=== PATIENT | female | born 1930 | race Caucasian/White ===

== ENCOUNTER 2016-07-16 14:52 | Emergency (ER) | payer OTHER, MEDICARE ==
[~2016-07-16 14:52] MED LIST: /HCTZ25TA PO; /PANT40TA PO; /WARF25TA PO; ALBU17IN2 INH; ASPI1TAB PO; ASPI325T PO; ASPI81TA85 PO; BISO10TA3 PO; BISO10TA42 PO; BISO10TA6 PO; CALC600T7 PO; CALCI50TA PO; CALCTAB75 PO; EPIN0.3I6 INJ; EPIP0.3I10 INJ; FERR15DR2 PO; FLON1SPR; FLUT50SP; MAGN200T3 PO; MAGN250T11 PO; MULTTAB4 PO; OCUTTAB PO; OPTI0.5D5 OU; OSTETAB PO; PERC7.5T12 PO; PROA1AER INH; PROAAER INH; PROL60SO SC; RAMI10CA PO; SENO8.6T9 PO; SPIR1CAP INH; TYLE325T5 PO; VITA-121 PO; VITMTA PO; [UNRECOGNIZED DRUG - OTHER] OR; [UNRECOGNIZED DRUG - OTHER] OR; prolia INJ; spiriva INH
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
--- NOTE | 2016-07-16 16:10 | REP ---
THORACIC SPINE, THREE VIEWS: HISTORY: Trauma. There is no acute fracture or subluxation. There is an old compression fracture of the T 9 vertebral body with minimal height loss. There is loss of height of several mid and lower thoracic intervertebral discs consistent with disc degeneration. Osteophytes are present in the mid and lower thoracic spine. There is scoliosis of the mid and lower thoracic spine convex to the left. The bony structure is osteopenic. IMPRESSION: Degenerative change as described above. Signed by Kehinde Wills MD 07/16/2016 04:11 P
[2016-07-16] MEDS ORDERED: ACETAMINOPHEN 325 MG TAB As Ordered ONE (16:53)
--- NOTE | 2016-07-16 17:00 | EDDOCDS ---
Physician Documentation [facility] Name: Ana Rosa Brooks Age: 85 yrs Sex: Female : 1930 Arrival Date: 07/16/2016 Time: 14:52 Bed 12 Private MD: Disposition: 07/16/16 16:38 Discharged to Home/Self Care. Impression: Contusion of right front wall of thorax, Contusion of right back wall of thorax. - Condition is Stable. - Discharge Instructions: Chest Wall Pain, Chest Contusion. - Medication Reconciliation, Local Pharmacy Hours form. - Follow up: Private Physician; When: 2 - 3 days. - Problem is new. - Symptoms are unchanged. Historical: - Allergies: Wasps; - Home Meds: 1. aspirin 81 mg Oral tab 1 tab once daily 2. Calcium 600 + D3 600/400 units 2X/day daily 3. magnesium oxide 250 mg Oral tab daily 4. multivitamin Oral tab daily 5. Osteo Bi-Flex Triple Strength oral 1 tab daily 6. Proair HFA 108 mcg/act 2 puffs four times per day as needed as needed 7. Prolia 60 mg/ml 2X/year 8. ramipril 10 mg Oral cap 1 cap once daily 9. Spiriva with HandiHaler 18 mcg Inhl CpDv once daily 10. Vitamin D3 1,000 unit oral tab daily 11. Refresh optive 0.5-0.9% 1 drop both eyes daily 12. bisoprolol-hydrochlorothiazide 10-6.25 mg oral tab 2 tab once daily 13. epi-pen 0.3mg/0.3ml 1 unit as directed 14. Fluitcasone Propionate susp 50 mcg/act 2 sprays each nostril daily daily - PMHx: Asthma; Hypertension; Palpitations; Thyroid problem; paroxysmal Vtach; - PSHx: Appendectomy; Hysterectomy; Thyroid Surgery; kidney stone removal; ureter repair; Hip Arthroplasty, Left; - Immunization history: Last tetanus immunization: - up to date. - Social history: Smoking status: Patient states was never smoker of tobacco. No barriers to communication noted, The patient speaks fluent Niuean, Speaks appropriately for age. - Family history: Not pertinent. - Last oral intake was: noon. - : The pt / caregiver states he / she is not on anticoagulants. Home medication list is obtained from the patient. Vital Signs: 07/16 15:06 BP 147 / 75; Pulse 80; Resp 16; Pulse Ox 92% on R/A; kr3 15:09 Temp 98.6(O); Weight 47.63 kg / 105.01 lbs (R); Height 5 ft. 0 in. (152.40 cm) (R); ct3 15:10 Weight 45.81 kg / 100.99 lbs (R); Height 5 ft. (152.40 cm) (R); kr3 15:15 BP 180 / 75 (auto/); kr3 15:48 BP 140 / 83 (auto/); kr3 16:18 BP 162 / 80 (auto/); kr3 16:33 BP 186 / 77 (auto/); kr3 15:10 Body Mass Index 19.73 (45.81 kg, 152.40 cm) kr3 Trauma Score (Adult): 15:03 Eye Response: spontaneous(1); Verbal Response: oriented(1); Motor Response: obeys kr3 commands(2); Systolic BP: > 89 mm Hg(4); Respiratory Rate: 10 to 29 per min(4); [place] Score: 15; Trauma Score: 12 MDM: 15:00 ECG WITH READING ER PHYS+CARDIAG ordered. EDMS 15:12 Chest, 2 View (pa\E\lat) Ordered. EDMS 15:12 Spine, Thoracic 3 Views Ordered. EDMS 15:53 Financial registration complete. ks16 15:55 [facility] Payment Agreement was scanned into [employer] and attached to record. ks16 15:57 Misc. Nursing Order ordered. sd1 16:58 Acetaminophen Tablet 650 mg PO once ordered. kr3 Administered Medications: 16:58 Drug: Acetaminophen 650 mg [acetaminophen 325 mg tablet (2 tabs)] Route: PO; kr3 16:58 Follow up: Response: Pt left department before re-evaluation is appropriate kr3 Signatures: Dispatcher [employer] EDMS Nereyda Zuniga MD MD sd1 Jessica Cook,RN RN kr3 Angela Chappell, Reg Reg ks16 The chart was reviewed and I authenticate all verbal orders and agree with the evaluation and treatment provided.Attachments: 15:55 [facility] Payment Agreement ks16 MTDD
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
--- NOTE | 2016-07-17 07:26 | ECGEPIP ---
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
--- NOTE | 2016-07-18 18:01 | EDDOCDS ---
Physician Documentation [facility] Name: Ana Rosa Brooks Age: 85 yrs Sex: Female : 1930 Arrival Date: 07/16/2016 Time: 14:52 Bed 12 Private MD: Disposition: 07/16/16 16:38 Discharged to Home/Self Care. Impression: Contusion of right front wall of thorax, Contusion of right back wall of thorax. - Condition is Stable. - Discharge Instructions: Chest Wall Pain, Chest Contusion. - Medication Reconciliation, Local Pharmacy Hours form. - Follow up: Private Physician; When: 2 - 3 days. - Problem is new. - Symptoms are unchanged. Historical: - Allergies: Wasps; - Home Meds: 1. aspirin 81 mg Oral tab 1 tab once daily 2. Calcium 600 + D3 600/400 units 2X/day daily 3. magnesium oxide 250 mg Oral tab daily 4. multivitamin Oral tab daily 5. Osteo Bi-Flex Triple Strength oral 1 tab daily 6. Proair HFA 108 mcg/act 2 puffs four times per day as needed as needed 7. Prolia 60 mg/ml 2X/year 8. ramipril 10 mg Oral cap 1 cap once daily 9. Spiriva with HandiHaler 18 mcg Inhl CpDv once daily 10. Vitamin D3 1,000 unit oral tab daily 11. Refresh optive 0.5-0.9% 1 drop both eyes daily 12. bisoprolol-hydrochlorothiazide 10-6.25 mg oral tab 2 tab once daily 13. epi-pen 0.3mg/0.3ml 1 unit as directed 14. Fluitcasone Propionate susp 50 mcg/act 2 sprays each nostril daily daily - PMHx: Asthma; Hypertension; Palpitations; Thyroid problem; paroxysmal Vtach; - PSHx: Appendectomy; Hysterectomy; Thyroid Surgery; kidney stone removal; ureter repair; Hip Arthroplasty, Left; - Immunization history: Last tetanus immunization: - up to date. - Social history: Smoking status: Patient states was never smoker of tobacco. No barriers to communication noted, The patient speaks fluent Belarusian, Speaks appropriately for age. - Family history: Not pertinent. - Last oral intake was: noon. - : The pt / caregiver states he / she is not on anticoagulants. Home medication list is obtained from the patient. Vital Signs: 07/16 15:06 BP 147 / 75; Pulse 80; Resp 16; Pulse Ox 92% on R/A; kr3 15:09 Temp 98.6(O); Weight 47.63 kg / 105.01 lbs (R); Height 5 ft. 0 in. (152.40 cm) (R); ct3 15:10 Weight 45.81 kg / 100.99 lbs (R); Height 5 ft. (152.40 cm) (R); kr3 15:15 BP 180 / 75 (auto/); kr3 15:48 BP 140 / 83 (auto/); kr3 16:18 BP 162 / 80 (auto/); kr3 16:33 BP 186 / 77 (auto/); kr3 15:10 Body Mass Index 19.73 (45.81 kg, 152.40 cm) kr3 Trauma Score (Adult): 15:03 Eye Response: spontaneous(1); Verbal Response: oriented(1); Motor Response: obeys kr3 commands(2); Systolic BP: > 89 mm Hg(4); Respiratory Rate: 10 to 29 per min(4); Pablo Score: 15; Trauma Score: 12 MDM: 15:00 ECG WITH READING ER PHYS+CARDIAG ordered. EDMS 15:12 Chest, 2 View (pa\E\lat) Ordered. EDMS 15:12 Spine, Thoracic 3 Views Ordered. EDMS 15:53 Financial registration complete. ks16 15:55 [facility] Payment Agreement was scanned into [employer] and attached to record. ks16 15:57 [facility] [place] Order ordered. sd1 16:58 Acetaminophen Tablet 650 mg PO once ordered. kr3 07/17 10:54 T-Sheet-- Draft Copy was scanned into [employer] and attached to record. gb 10:54 ECG/EKG was scanned into [employer] and attached to record. gb Administered Medications: 07/16 16:58 Drug: Acetaminophen 650 mg [acetaminophen 325 mg tablet (2 tabs)] Route: PO; kr3 16:58 Follow up: Response: Pt left department before re-evaluation is appropriate kr3 Signatures: Dispatcher [employer] EDMS Nereyda Zuniga MD MD sd1 Mirella Hernandez, Reg Reg gb Jessica Cook RN RN kr3 Angela Chappell, Reg Reg ks16 The chart was reviewed and I authenticate all verbal orders and agree with the evaluation and treatment provided.Attachments: 15:55 [facility] [place] Payment Agreement ks16 07/17 10:54 T-Sheet-- Draft Copy gb 10:54 ECG/EKG gb Chart Complete MTDD
--- NOTE | 2016-07-18 18:01 | EDDOCDS ---
Physician Documentation [facility] Name: Ana Rosa Brooks Age: 85 yrs Sex: Female : 1930 Arrival Date: 07/16/2016 Time: 14:52 Bed 12 Private MD: Disposition: 07/16/16 16:38 Discharged to Home/Self Care. Impression: Contusion of right front wall of thorax, Contusion of right back wall of thorax. - Condition is Stable. - Discharge Instructions: Chest Wall Pain, Chest Contusion. - Medication Reconciliation, Local Pharmacy Hours form. - Follow up: Private Physician; When: 2 - 3 days. - Problem is new. - Symptoms are unchanged. Historical: - Allergies: Wasps; - Home Meds: 1. aspirin 81 mg Oral tab 1 tab once daily 2. Calcium 600 + D3 600/400 units 2X/day daily 3. magnesium oxide 250 mg Oral tab daily 4. multivitamin Oral tab daily 5. Osteo Bi-Flex Triple Strength oral 1 tab daily 6. Proair HFA 108 mcg/act 2 puffs four times per day as needed as needed 7. Prolia 60 mg/ml 2X/year 8. ramipril 10 mg Oral cap 1 cap once daily 9. Spiriva with HandiHaler 18 mcg Inhl CpDv once daily 10. Vitamin D3 1,000 unit oral tab daily 11. Refresh optive 0.5-0.9% 1 drop both eyes daily 12. bisoprolol-hydrochlorothiazide 10-6.25 mg oral tab 2 tab once daily 13. epi-pen 0.3mg/0.3ml 1 unit as directed 14. Fluitcasone Propionate susp 50 mcg/act 2 sprays each nostril daily daily - PMHx: Asthma; Hypertension; Palpitations; Thyroid problem; paroxysmal Vtach; - PSHx: Appendectomy; Hysterectomy; Thyroid Surgery; kidney stone removal; ureter repair; Hip Arthroplasty, Left; - Immunization history: Last tetanus immunization: - up to date. - Social history: Smoking status: Patient states was never smoker of tobacco. No barriers to communication noted, The patient speaks fluent Greek, Speaks appropriately for age. - Family history: Not pertinent. - Last oral intake was: noon. - : The pt / caregiver states he / she is not on anticoagulants. Home medication list is obtained from the patient. Vital Signs: 07/16 15:06 BP 147 / 75; Pulse 80; Resp 16; Pulse Ox 92% on R/A; kr3 15:09 Temp 98.6(O); Weight 47.63 kg / 105.01 lbs (R); Height 5 ft. 0 in. (152.40 cm) (R); ct3 15:10 Weight 45.81 kg / 100.99 lbs (R); Height 5 ft. (152.40 cm) (R); kr3 15:15 BP 180 / 75 (auto/); kr3 15:48 BP 140 / 83 (auto/); kr3 16:18 BP 162 / 80 (auto/); kr3 16:33 BP 186 / 77 (auto/); kr3 15:10 Body Mass Index 19.73 (45.81 kg, 152.40 cm) kr3 Trauma Score (Adult): 15:03 Eye Response: spontaneous(1); Verbal Response: oriented(1); Motor Response: obeys kr3 commands(2); Systolic BP: > 89 mm Hg(4); Respiratory Rate: 10 to 29 per min(4); [place] Score: 15; Trauma Score: 12 MDM: 15:00 ECG WITH READING ER PHYS+CARDIAG ordered. EDMS 15:12 Chest, 2 View (pa\E\lat) Ordered. EDMS 15:12 Spine, Thoracic 3 Views Ordered. EDMS 15:53 Financial registration complete. ks16 15:55 [facility] Payment Agreement was scanned into [employer] and attached to record. ks16 15:57 [facility] [place]. Nursing Order ordered. sd1 16:58 Acetaminophen Tablet 650 mg PO once ordered. kr3 07/17 10:54 T-Sheet-- Draft Copy was scanned into [employer] and attached to record. gb 10:54 ECG/EKG was scanned into [employer] and attached to record. gb Administered Medications: 07/16 16:58 Drug: Acetaminophen 650 mg [acetaminophen 325 mg tablet (2 tabs)] Route: PO; kr3 16:58 Follow up: Response: Pt left department before re-evaluation is appropriate kr3 Signatures: Dispatcher [employer] EDMS Nereyda Zuniga MD MD sd1 Mirella Hernandez, Reg Reg gb Jessica Cook RN RN kr3 Angela Chappell, Reg Reg ks16 The chart was reviewed and I authenticate all verbal orders and agree with the evaluation and treatment provided.Attachments: 15:55 [facility] [place] Payment Agreement ks16 07/17 10:54 T-Sheet-- Draft Copy gb 10:54 ECG/EKG gb Chart Complete MTDD
== END 2016-07-16 17:00 | disposition home or self-care (01) ==
LOC: M ED 14:52
DX: S20.219A Contusion of unspecified front wall of thorax, initial encounter (principal); V49.40XA Driver injured in collision with unspecified motor vehicles in traffic accident, initial encounter; Y92.410 Unspecified street and highway as the place of occurrence of the external cause; I10 Essential (primary) hypertension; J45.909 Unspecified asthma, uncomplicated; R00.2 Palpitations; E07.9 Disorder of thyroid, unspecified; I47.2 Ventricular tachycardia; Z79.899 Other long term (current) drug therapy; Z79.82 Long term (current) use of aspirin; Z91.030 Bee allergy status

== ENCOUNTER 2016-07-27 16:30 | Inpatient (IN) | payer MEDICARE, OTHER ==
[~2016-07-27] VITALS: Ht 152.4 cm; Wt 45.6 kg
[2016-07-27 17:34] LABS: BASO # 0.1 K/mm3 (0.0-0.2); BASO % 0.6 % (0.0-1.0); EOS # 0.5 K/mm3 (0.0-0.50); EOS % 5.4 % (0.0-3.0); LARGE UNSTAINED CELL # 0.4 K/mm3 (0.0-0.4); LARGE UNSTAINED CELL % 3.9 % (0.0-4.0); LYMPH # 1.7 K/mm3 (1.5-4.5); LYMPH % 16.4 % (24.0-44.0); MEAN CORPUSCULAR HEMOGLOBIN 31.2 pg (27.0-33.0); MEAN CORPUSCULAR HGB CONC 32.5 g/dl (32.0-36.5); MEAN CORPUSCULAR VOLUME 95.9 fl (80.0-96.0); MONO # 0.8 K/mm3 (0.0-0.8); MONO % 7.7 % (0.0-5.0); NEUTROPHILS # 6.7 K/mm3 (1.8-7.7); NEUTROPHILS % 66.1 % (36.0-66.0); PLATELET COUNT, AUTOMATED 411 k/mm3 (150-450); RED CELL DISTRIBUTION WIDTH 12.5 % (11.5-14.5); WHITE BLOOD COUNT 10.1 K/mm3 (4.0-10.0)
[2016-07-27 17:57] LABS: CALCIUM LEVEL 13.3 MG/DL (8.8-10.2); CREATININE FOR GFR 1.53 MG/DL (0.55-1.02); GLOMERULAR FILTRATION RATE 34.3 (>32); POTASSIUM SERUM 3.2 MEQ/L (3.5-5.1)
[2016-07-27] MEDS ORDERED: POTASSIUM CHLORIDE 10 MEQ SR TABLET As Ordered ONE (18:10)
--- NOTE | 2016-07-27 18:21 | REP ---
CHEST, ONE VIEW: HISTORY: Shortness of breath. COMPARISON: 07/16/2016 A minimal increase in interstitial markings is present in the lungs. The heart is upper limits of normal in size. The pulmonary vasculature is prominent. IMPRESSION: There is a minimal increase in interstitial markings in the lungs. This may represent interstitial edema or pneumonia. Signed by Kehinde Wills MD 07/27/2016 06:22 P
[2016-07-27] MEDS ORDERED: CALCTAB41 PO (19:41)
[2016-07-27] MEDS ORDERED: EPIP0.3I2 INJ (19:41)
[2016-07-27] MEDS ORDERED: MAGN250T11 PO (19:41)
[2016-07-27] MEDS ORDERED: VITMTA PO (19:41)
[2016-07-27] MEDS ORDERED: FURO40TA2 PO (19:44)
[2016-07-27] MEDS ORDERED: RAMI10CA PO (19:44)
[2016-07-27] MEDS ORDERED: PROL60SO SC (19:44)
[2016-07-27] MEDS ORDERED: REFR1DRO8 OU (19:44)
[2016-07-27] MEDS ORDERED: VITA-121 PO (19:44)
[2016-07-27] MEDS ORDERED: OSTETAB PO (19:44)
[2016-07-27] MEDS ORDERED: ASPI1TAB PO (19:46)
[2016-07-27] MEDS ORDERED: ALBUTEROL 90 MCG/ACT 8GM HFA INHALER INH PRN (20:15)
[2016-07-27 21:10] LABS: IONIZED CALCIUM 6.1 MG/DL (4.5-5.3)
[2016-07-27 21:42] LABS: T UPTAKE 41 % (30-39); THYROXINE (T4) 9.1 UG/DL (4.5-12.0); TOTAL PROTEIN 6.5 GM/DL (6.4-8.2)
[2016-07-27 21:50] VITALS: BP 170/98
[2016-07-27 21:58] LABS: OSMOLALITY URINE 344 MOSM/KG (500-800)
[2016-07-27] MEDS ORDERED: KCL 20MEQ IN 0.9 NS 1000 ML BAG As Ordered ONE (21:58)
[2016-07-27] MEDS ORDERED: HEPARIN SOD (PORCINE) 5000 UNITS/ML VIAL As Ordered ONE (22:04)
[2016-07-27] MEDS: KCL 20MEQ in NS 1000ML 1,000 ML IV SCH (22:07)
[2016-07-27] MEDS: HEPARIN SOD (PORCINE) 5000 UNITS/ML VIAL SC SCH (22:07)
[2016-07-27] MEDS ORDERED: MULTIVITAMINS/MINERALS THERAP 1 TAB As Ordered ONE (22:12)
[2016-07-27] MEDS: MULTIVITAMINS/MINERALS THERAP 1 TAB PO SCH (22:13)
[2016-07-27] MEDS: BISOPROLOL FUMARATE 10 MG TAB PO SCH (22:13)
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
[2016-07-27] MEDS: POLYVINYL ALCOHOL OPHTH SOLN 15 ML(LIQUITEARS) OU SCH (22:18)
[2016-07-28] VITALS: BP 141/76
[2016-07-28 04:00] VITALS: BP 135/80
[2016-07-28] MEDS ORDERED: HEPARIN SOD (PORCINE) 5000 UNITS/ML VIAL As Ordered ONE (05:50)
[2016-07-28] MEDS: HEPARIN SOD (PORCINE) 5000 UNITS/ML VIAL SC SCH ×3 (05:53→21:45)
[2016-07-28 07:24] LABS: IONIZED CALCIUM 5.9 MG/DL (4.5-5.3)
[2016-07-28 07:25] LABS: MEAN CORPUSCULAR HEMOGLOBIN 31.7 pg (27.0-33.0); MEAN CORPUSCULAR HGB CONC 33.1 g/dl (32.0-36.5); MEAN CORPUSCULAR VOLUME 95.7 fl (80.0-96.0); RED CELL DISTRIBUTION WIDTH 12.6 % (11.5-14.5); WHITE BLOOD COUNT 8.8 K/mm3 (4.0-10.0)
[2016-07-28 07:46] LABS: CALCIUM LEVEL 11.6 MG/DL (8.8-10.2); CREATININE FOR GFR 1.27 MG/DL (0.55-1.02); GLOMERULAR FILTRATION RATE 42.5 (>32); MAGNESIUM LEVEL 2.1 MG/DL (1.8-2.4); POTASSIUM SERUM 4.2 MEQ/L (3.5-5.1)
--- NOTE | 2016-07-28 07:59 | REP ---
Clinical: Hypercalcemia. Technique: Real-time bryant scale and color evaluation of the thyroid gland using linear high frequency transducer. Findings: The patient gives a history of prior right thyroidectomy. Residual right thyroid tissue measures 1.7 x 0.8 x 0.9 cm and includes 2.6 mm hypoechoic mid pole lesion with mural calcification and 2.8 mm lower pole cystic lesion with small amount of mural calcification. Left thyroid lobe measures 3.2 x 1.9 x 1.9 cm and includes 1.2 cm upper pole isoechoic nodule along with 5 mm mid pole nodule, 1.2 centimeter mid/lower pole and 6.2 mm lower pole cysts. Impression: 1. Residual right thyroid tissue with small hypoechoic lesions as noted above. 2. Left lobe demonstrating 1.2 cm isoechoic nodule and 1.2 cm anechoic cyst. Signed by Chuy Pate MD 07/28/2016 07:51 A
[2016-07-28 08:00] VITALS: BP 150/78
--- NOTE | 2016-07-28 08:36 | REP ---
CT study of the chest without contrast: History: Question malignancy. Comparison CT study is from March 12, 2016. Findings: The previously noted left lobe thyroid hypodense lesion is not seen. There are clips at the trachea. The patient appears to be status post right thyroid lobectomy. There is no evidence of hilar or mediastinal lymphadenopathy. No pleural or pericardial effusion is seen. No adrenal lesion is seen. There are two intrarenal calculi in the left upper kidney. Vascular calcification is noted in the aorta and its branches. On lung window settings, there are emphysematous changes in the upper lobes bilaterally. Mild bibasilar linear fibrosis is seen. No pulmonary mass lesion or significant nodule is appreciated. No bony destructive lesion is seen. There is a levoconvex curvature in the lower thoracic spine. Impression: Evidence of COPD. No evidence of lung mass, adenopathy or significant nodule. Signed by Golden Genao MD 07/28/2016 02:32 P
[2016-07-28] MEDS: FLUTICASONE PROP 0.05% NASAL SPRAY 16 GM (FLONASE) SCH (09:00)
[2016-07-28] MEDS ORDERED: KCL 20MEQ IN 0.9 NS 1000 ML BAG As Ordered ONE (09:01)
[2016-07-28] MEDS: SENOKOT S TAB PO SCH ×2 (09:02→21:45)
[2016-07-28] MEDS: ASPIRIN 81 MG ENTERIC TAB PO SCH (09:02)
[2016-07-28] MEDS: KCL 20MEQ in NS 1000ML 1,000 ML IV SCH (09:03)
[2016-07-28] MEDS: POLYVINYL ALCOHOL OPHTH SOLN 15 ML(LIQUITEARS) OU SCH ×2 (09:03→21:45)
[2016-07-28] MEDS: TIOTROPIUM INHALER/CAPSULE (SPIRIVA) INH SCH (11:22)
[2016-07-28 12:10] VITALS: BP 170/76
--- NOTE | 2016-07-28 12:18 | EDDOCDS ---
Physician Documentation [facility] Name: Ana Rosa Brooks Age: 85 yrs Sex: Female : 1930 Arrival Date: 07/27/2016 Time: 16:30 Bed Admit Hold Private MD: Ashley Sky Disposition: 07/27/16 19:19 Hospitalization ordered by Jaylin Connolly for Inpatient Admission. Preliminary diagnosis is Hypercalcemia. - Bed requested for PCU. - Status is Inpatient Admission. kcs - Condition is Stable. - Problem is new. - Symptoms are unchanged. Historical: - Allergies: Wasps; - Home Meds: 1. aspirin 81 mg Oral tab 1 tab once daily 2. bisoprolol-hydrochlorothiazide 10-6.25 mg oral tab 2 tab once daily 3. Calcium 600 + D3 600/400 units 2X/day daily 4. epi-pen 0.3mg/0.3ml 1 unit as directed 5. Fluitcasone Propionate susp 50 mcg/act 2 sprays each nostril daily daily 6. magnesium oxide 250 mg Oral tab daily 7. multivitamin Oral tab daily 8. Osteo Bi-Flex Triple Strength oral 1 tab daily 9. Proair HFA 108 mcg/act 2 puffs four times per day as needed as needed 10. ramipril 10 mg Oral cap 1 cap once daily 11. Prolia 60 mg/ml 2X/year 12. Refresh optive 0.5-0.9% 1 drop both eyes daily 13. Spiriva with HandiHaler 18 mcg Inhl CpDv once daily 14. Vitamin D3 1,000 unit oral tab daily - PMHx: Thyroid problem; paroxysmal Vtach; Hypertension; Asthma; Palpitations; - PSHx: Thyroid Surgery; ureter repair; Hysterectomy; Appendectomy; kidney stone removal; Hip Arthroplasty, Left; - Social history: No barriers to communication noted, The patient speaks fluent Brazilian, Speaks appropriately for age, Smoking status: Patient states former smoker of tobacco. - Family history: Not pertinent. - : The pt / caregiver states he / she is not on anticoagulants. Home medication list is obtained from the patient, [employer] import data. - Exposure Risk Screening:: None identified. Vital Signs: 07/27 16:35 BP 179 / 81; Pulse 79; Resp 18; Temp 97.1(O); Pulse Ox 99% on R/A; Weight 43.09 kg / 95 ct3 lbs (R); Height 5 ft. 0 in. (152.40 cm) (R); Pain 5/10; 17:24 BP 175 / 88 (auto/); mk4 17:25 Pulse 74 MON; Pulse Ox 93% ; mk4 17:39 BP 170 / 79 (auto/); mk4 17:39 Pulse 66 MON; Pulse Ox 91% ; mk4 17:54 BP 175 / 81 (auto/); mk4 17:54 Pulse 72 MON; Pulse Ox 90% ; mk4 18:09 BP 183 / 85 (auto/); mk4 18:09 Pulse 80 MON; Pulse Ox 91% ; mk4 18:24 BP 174 / 84 (auto/); mk4 18:24 Pulse 70 MON; Pulse Ox 91% ; mk4 18:39 BP 189 / 89 (auto/); mk4 18:39 Pulse 72 MON; Pulse Ox 92% ; mk4 18:54 BP 183 / 86 (auto/); mk4 18:54 Pulse 74 MON; Pulse Ox 90% ; mk4 19:39 BP 178 / 84 (auto/); mv5 19:39 Pulse 72 MON; Pulse Ox 90% ; mv5 19:54 BP 188 / 91 (auto/); mv5 19:54 Pulse 76 MON; Pulse Ox 91% ; mv5 20:39 BP 169 / 77 (auto/); mv5 20:39 Pulse 72 MON; Pulse Ox 89% ; mv5 20:54 BP 166 / 80 (auto/); mv5 20:54 Pulse 74 MON; Pulse Ox 89% ; mv5 21:09 BP 180 / 86 (auto/); mv5 21:09 Pulse 76 MON; Pulse Ox 90% ; mv5 16:35 Body Mass Index 18.55 (43.09 kg, 152.40 cm) ct3 MDM: 16:45 IV Saline Lock ordered. br1 16:45 CBC with Diff Ordered. EDMS 16:45 BMP Ordered. EDMS 17:11 [employer]/Pulse Ox/q 30 min VS ordered. br1 17:11 NS 0.9% 1000 ml IV at 150 mL/hr continuous ordered. br1 17:12 ECG WITH READING ER PHYS+CARDIAG ordered. EDMS 17:46 Chest, 1 View Ordered. EDMS 18:02 CBC with Diff Reviewed. br1 18:02 BMP Reviewed. br1 18:02 Potassium Chloride Extended Release Tablet 40 mEq PO once ordered. br1 18:06 BED REQUEST+ADM ordered. EDMS 18:37 Financial registration complete. [facility] 19:40 [facility] Payment Agreement was scanned into [employer] and attached to record. gjb 20:37 2 GRAM SODIUM DIET ordered. EDMS 20:37 THYROID PROFILE Ordered. EDMS 20:37 VITAMIN D, 25-HYDROXY Ordered. EDMS 20:37 PTH INTACT Ordered. EDMS 20:38 IONIZED CALCIUM Ordered. EDMS 20:38 URINALYSIS Ordered. EDMS 20:38 OSMOLALITY,URINE Ordered. EDMS 20:38 CALCIUM,RANDOM URINE Ordered. EDMS 20:38 SODIUM,RANDOM URINE Ordered. EDMS 20:38 POTASSIUM,RANDOM URINE Ordered. EDMS 20:38 SERUM PROTEIN ELECTROPHORESIS Ordered. EDMS 20:38 URINE PROTEIN ELECTROPHORESIS Ordered. EDMS 20:38 TOTAL PROTEIN,RANDOM URINE Ordered. EDMS 20:38 CREATININE,RANDOM URINE Ordered. EDMS 20:38 COMPLETE BLOOD COUNT Ordered. EDMS 20:38 BASIC METABOLIC PROFILE Ordered. EDMS 20:39 IONIZED CALCIUM Ordered. EDMS 20:40 PHYSICAL THERAPY EVAL ONLY ordered. EDMS 20:40 Thyroid, ST head+neck US Ordered. EDMS 21:15 Admission / Observation Status ordered. EDMS 22:16 MAGNESIUM LEVEL Ordered. EDMS 02/07 06:47 CT Chest without contrast Ordered. EDMS 06:47 CHLORIDE,RANDOM URINE Ordered. EDMS 07:07 PTH RELATED PEPTIDE Ordered. EDMS 07:07 VIT D 1,25 DIHYDROXY Ordered. EDMS Administered Medications: 07/27 17:47 Drug: NS 0.9% 1000 ml [sodium chloride 0.9 % intravenous solution] Route: IV; Rate: 150 mk4 mL/hr; Site: left antecubital; 18:16 Drug: Potassium Chloride 40 mEq [potassium chloride ER 10 mEq tablet,extended release mk4 (4 tabs)] Route: PO; 19:23 Follow up: Response: No Adverse Reaction mv5 Signatures: Dispatcher [employer] Kavitha Alvarez, Valdemar Champion RN, MD MD br1 Ana Rosa Rich RN RN mk4 Angela Orosco RN RN ead Beck, Gabriela b aKtelynn Mustafa RN mv5 The chart was reviewed and I authenticate all verbal orders and agree with the evaluation and treatment provided.Corrections: (The following items were deleted from the chart) 22:16 21:14 MAGNESIUM LEVEL ordered. EDMS EDMS Attachments: 19:40 [facility] Payment Agreement gjb MTDD
--- NOTE | 2016-07-28 12:18 | EDDOCDS ---
Nurse's Notes [facility] Name: Ana Rosa Brooks Age: 85 yrs Sex: Female : 1930 Arrival Date: 07/27/2016 Time: 16:30 Bed Admit Hold Private MD: Ashley Sky Diagnosis: Hypercalcemia Presentation: 07/27 16:38 Presenting complaint: Patient states: pt had blood work done by Dr. Sky this ead morning, pt was called and told she had elevated calcium. pt reports "urinary problems, the urine was real dark.". Adult Sepsis Screening: The patient does not have new or worsening altered mentation. Patient's respiratory rate is less than 22. Systolic blood pressure is greater than 100. Patient has a qSOFA score of 0- Negative Sepsis Screen. Suicide/Homicide risk assessment- the patient denies having any suicidal and/or homicidal ideations and does not present with any other emotional, behavioral or mental health complaints. 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 Transition of care: patient was not received from another setting of care. 16:38 Acuity: STEWART Level 3 ead 16:38 Method Of Arrival: Walkin/Carried/Asstd ead Triage Assessment: 16:42 General: Appears in no apparent distress, comfortable, Behavior is appropriate for age, ead cooperative. Pain: Denies pain. Neurological: Level of Consciousness is awake, alert, obeys commands, Oriented to person, place, time. Cardiovascular: Chest pain is denied. Respiratory: Airway is patent Respiratory effort is even, unlabored, Reports shortness of breath. Derm: Skin is pink, warm & dry. Historical: - Allergies: Wasps; - Home Meds: 1. aspirin 81 mg Oral tab 1 tab once daily 2. bisoprolol-hydrochlorothiazide 10-6.25 mg oral tab 2 tab once daily 3. Calcium 600 + D3 600/400 units 2X/day daily 4. epi-pen 0.3mg/0.3ml 1 unit as directed 5. Fluitcasone Propionate susp 50 mcg/act 2 sprays each nostril daily daily 6. magnesium oxide 250 mg Oral tab daily 7. multivitamin Oral tab daily 8. Osteo Bi-Flex Triple Strength oral 1 tab daily 9. Proair HFA 108 mcg/act 2 puffs four times per day as needed as needed 10. ramipril 10 mg Oral cap 1 cap once daily 11. Prolia 60 mg/ml 2X/year 12. Refresh optive 0.5-0.9% 1 drop both eyes daily 13. Spiriva with HandiHaler 18 mcg Inhl CpDv once daily 14. Vitamin D3 1,000 unit oral tab daily - PMHx: Thyroid problem; paroxysmal Vtach; Hypertension; Asthma; Palpitations; - PSHx: Thyroid Surgery; ureter repair; Hysterectomy; Appendectomy; kidney stone removal; Hip Arthroplasty, Left; - Social history: No barriers to communication noted, The patient speaks fluent Belarusian, Speaks appropriately for age, Smoking status: Patient states former smoker of tobacco. - Family history: Not pertinent. - : The pt / caregiver states he / she is not on anticoagulants. Home medication list is obtained from the patient, [employer] import data. - Exposure Risk Screening:: None identified. Screenin:39 Screening information is obtained from the patient. Fall risk:. Assistance ADL's: mk4 requires no assistance with activities of daily living. Abuse/DV Screen: The patient / caregiver reports he/she is: not in a situation that causes fear, pain or injury. Nutritional screening: No deficits noted. home support is adequate. Assessment: 18:00 General: Appears in no apparent distress, comfortable. Cardiovascular: Capillary refill mk4 Clubbing of nail beds Rhythm is regular Chest pain is denied. Respiratory: Airway is patent Respiratory effort is even, unlabored, Respiratory pattern is regular, Reports pt states she experiences some disc when she takes deep inspirations. Derm: Skin is intact, is healthy with good turgor. 18:39 Neurological: Level of Consciousness is awake, alert. mk4 18:39 General: Appears in no apparent distress, comfortable, Behavior is cooperative. mk4 Respiratory: Airway is patent Respiratory effort is even, unlabored, Respiratory pattern is regular. 19:21 General: Appears in no apparent distress, comfortable. Neurological: Level of mv5 Consciousness is awake, alert, Oriented to person, place, time. Cardiovascular: Capillary refill < 3 seconds Rhythm is regular Chest pain is denied. Respiratory: Airway is patent Respiratory effort is even, unlabored, Respiratory pattern is regular. Derm: Skin is pink, warm & dry. Vital Signs: 16:35 BP 179 / 81; Pulse 79; Resp 18; Temp 97.1(O); Pulse Ox 99% on R/A; Weight 43.09 kg (R); ct3 Height 5 ft. 0 in. (152.40 cm) (R); Pain 5/10; 17:24 BP 175 / 88 (auto/); mk4 17:25 Pulse 74 MON; Pulse Ox 93% ; mk4 17:39 BP 170 / 79 (auto/); mk4 17:39 Pulse 66 MON; Pulse Ox 91% ; mk4 17:54 BP 175 / 81 (auto/); mk4 17:54 Pulse 72 MON; Pulse Ox 90% ; mk4 18:09 BP 183 / 85 (auto/); mk4 18:09 Pulse 80 MON; Pulse Ox 91% ; mk4 18:24 BP 174 / 84 (auto/); mk4 18:24 Pulse 70 MON; Pulse Ox 91% ; mk4 18:39 BP 189 / 89 (auto/); mk4 18:39 Pulse 72 MON; Pulse Ox 92% ; mk4 18:54 BP 183 / 86 (auto/); mk4 18:54 Pulse 74 MON; Pulse Ox 90% ; mk4 19:39 BP 178 / 84 (auto/); mv5 19:39 Pulse 72 MON; Pulse Ox 90% ; mv5 19:54 BP 188 / 91 (auto/); mv5 19:54 Pulse 76 MON; Pulse Ox 91% ; mv5 20:39 BP 169 / 77 (auto/); mv5 20:39 Pulse 72 MON; Pulse Ox 89% ; mv5 20:54 BP 166 / 80 (auto/); mv5 20:54 Pulse 74 MON; Pulse Ox 89% ; mv5 21:09 BP 180 / 86 (auto/); mv5 21:09 Pulse 76 MON; Pulse Ox 90% ; mv5 16:35 Body Mass Index 18.55 (43.09 kg, 152.40 cm) ct3 Vitals: 16:35 Log In Time: July 27, 2016 at 16:32. ct3 ED Course: 16:34 Patient visited by Marj Fernandez PCA. ct3 16:34 Ashley Sky is Private Physician. ct3 16:34 Patient moved to Waiting ct3 16:37 Patient moved to Pre RCE ct3 16:41 Triage Initiated ead 16:44 Patient moved to 14 ead 16:45 Valdemar Britton MD is Attending Physician. br1 17:10 Patient visited by Valdemar Britton MD. br1 17:23 BMP Sent. mk4 17:23 CBC with Diff Sent. mk4 17:47 Patient visited by Ana Rosa Rich, FIDENCIO. mk4 17:48 Inserted saline lock: 20 gauge in left antecubital area and blood collected. No mk4 procedures done that require assistance. 18:00 The patient / caregiver is instructed regarding the plan of care and ED course. Cardiac mk4 monitor on. Pulse ox on. NIBP on. 18:06 Patient visited by Ana Rosa Rich RN. mk4 18:28 Chest, 1 View Returned. EDMS 18:36 Patient visited by Ana Rosa Rich RN. mk4 19:17 Patient visited by Darya Zayas RN. sls1 19:19 Jaylin Connolly is Hospitalizing Provider. br1 19:19 Katelynn Mustafa,RN is Primary Nurse. mv5 19:40 [facility] Payment Agreement was scanned into [employer] and attached to record. gjb 21:39 Patient moved to 19 sls1 21:39 Patient moved to Admit Hold sls1 21:47 Report given to report to Arleth Figueroa RN. mv5 22:29 Patient moved to Ultrasound hgl 22:58 Patient moved to Admit Hold [facility]1 02 08:16 Thyroid, ST head+neck US Returned. EDMS 08:55 CT Chest without contrast Returned. EDMS 11:19 Primary Nurse role handed off by Katelynn Mustafa,RN mcp Administered Medications: 07/27 17:47 Drug: NS 0.9% 1000 ml [sodium chloride 0.9 % intravenous solution] Route: IV; Rate: 150 mk4 mL/hr; Site: left antecubital; 18:16 Drug: Potassium Chloride 40 mEq [potassium chloride ER 10 mEq tablet,extended release mk4 (4 tabs)] Route: PO; 19:23 Follow up: Response: No Adverse Reaction mv5 Order Results: Lab Order: CBC with Diff; SPEC'M 07/27/16 17:21 Test: WHITE BLOOD COUNT; Value: 10.1; Range: 4.0-10.0; Abnormal: Above high normal; Units: K/mm3; Status: F Test: RED BLOOD COUNT; Value: 4.32; Range: 4.00-5.40; Units: M/mm3; Status: F Test: HEMOGLOBIN; Value: 13.5; Range: 12.0-16.0; Units: g/dl; Status: F Test: HEMATOCRIT; Value: 41.4; Range: 36.0-47.0; Units: %; Status: F Test: MEAN CORPUSCULAR VOLUME; Value: 95.9; Range: 80.0-96.0; Units: fl; Status: F Test: MEAN CORPUSCULAR HEMOGLOBIN; Value: 31.2; Range: 27.0-33.0; Units: pg; Status: F Test: MEAN CORPUSCULAR HGB CONC; Value: 32.5; Range: 32.0-36.5; Units: g/dl; Status: F Test: RED CELL DISTRIBUTION WIDTH; Value: 12.5; Range: 11.5-14.5; Units: %; Status: F Test: PLATELET COUNT, AUTOMATED; Value: 411; Range: 150-450; Units: k/mm3; Status: F Test: NEUTROPHILS %; Value: 66.1; Range: 36.0-66.0; Abnormal: Above high normal; Units: %; Status: F Test: LYMPH %; Value: 16.4; Range: 24.0-44.0; Abnormal: Below low normal; Units: %; Status: F Test: MONO %; Value: 7.7; Range: 0.0-5.0; Abnormal: Above high normal; Units: %; Status: F Test: EOS %; Value: 5.4; Range: 0.0-3.0; Abnormal: Above high normal; Units: %; Status: F Test: BASO %; Value: 0.6; Range: 0.0-1.0; Units: %; Status: F Test: LARGE UNSTAINED CELL %; Value: 3.9; Range: 0.0-4.0; Units: %; Status: F Test: NEUTROPHILS #; Value: 6.7; Range: 1.8-7.7; Units: K/mm3; Status: F Test: LYMPH #; Value: 1.7; Range: 1.5-4.5; Units: K/mm3; Status: F Test: MONO #; Value: 0.8; Range: 0.0-0.8; Units: K/mm3; Status: F Test: EOS #; Value: 0.5; Range: 0.0-0.50; Units: K/mm3; Status: F Test: BASO #; Value: 0.1; Range: 0.0-0.2; Units: K/mm3; Status: F Test: LARGE UNSTAINED CELL #; Value: 0.4; Range: 0.0-0.4; Units: K/mm3; Status: F Lab Order: BMP; SPEC'M 07/27/16 17:21 Test: GLUCOSE, FASTING; Value: 95; Range: 83-110; Units: MG/DL; Status: F Test: BLOOD UREA NITROGEN; Value: 46; Range: 7-18; Abnormal: Above high normal; Units: MG/DL; Status: F Test: CREATININE FOR GFR; Value: 1.53; Range: 0.55-1.02; Abnormal: Above high normal; Units: MG/DL; Status: F Test: GLOMERULAR FILTRATION RATE; Value: 34.3; Range: >32; Status: F Test: SODIUM LEVEL; Value: 142; Range: 136-145; Units: MEQ/L; Status: F Test: POTASSIUM SERUM; Value: 3.2; Range: 3.5-5.1; Abnormal: Below low normal; Units: MEQ/L; Status: F Test: CHLORIDE LEVEL; Value: 98; Range: 98-107; Units: MEQ/L; Status: F Test: CARBON DIOXIDE LEVEL; Value: 36; Range: 21-32; Abnormal: Above high normal; Units: MEQ/L; Status: F Test: ANION GAP; Value: 8; Range: 8-16; Units: MEQ/L; Status: F Test: CALCIUM LEVEL; Value: 13.3; Range: 8.8-10.2; Abnormal: Above high normal; Units: MG/DL; Status: F Test Note: ; Units are mL/min/1.73 m2 Chronic Kidney Disease Staging per NKF: Stage I & II GFR >=60 Normal to Mildly Decreased Stage III GFR 30-59 Moderately Decreased Stage IV GFR 15-29 Severely Decreased Stage V GFR <15 Very Little GFR Left ESRD GFR <15 on BOAT PILOT Lab Order: THYROID PROFILE; SPEC'M 07/27/16 20:59 Test: T UPTAKE; Value: 41; Range: 30-39; Abnormal: Above high normal; Units: %; Status: F Test: THYROXINE (T4); Value: 9.1; Range: 4.5-12.0; Units: UG/DL; Status: F Test: FREE THYROXINE INDEX; Value: 3.7; Range: 1.3-4.8; Units: %; Status: F Test: THYROID STIMULATING HORMONE; Value: 1.720; Range: 0.358-3.740; Units: uIU/ML; Status: F Lab Order: VITAMIN D, 25-HYDROXY; [facility] 07/27/16 20:59 Test: TOTAL 25(OH) VITAMIN D; Value: 53.5; Range: 30.0-100.0; Units: NG/ML; Status: F Test Note: ; Total 25(OH)Vitamin D Expected Values Deficiency <20 ng/ml Insufficiency 20-30 ng/ml Sufficiency 30-100 ng/ml Toxicity >100 ng/ml Lab Order: PTH INTACT; [facility] 07/27/16 20:59 Test: PTH INTACT; Value: < 6.3; Range: 14.0-72.0; Abnormal: Below low normal; Units: PG/ML; Status: F Lab Order: IONIZED CALCIUM; [facility] 07/27/16 20:59 Test: IONIZED CALCIUM; Value: 6.1; Range: 4.5-5.3; Abnormal: Above high normal; Units: MG/DL; Status: F Lab Order: URINALYSIS; [facility] 07/27/16 21:38 Test: APPEARANCE, URINE; Value: CLEAR; Range: CLEAR; Status: F Test: COLOR, URINE; Value: YELLOW; Range: YELLOW; Status: F Test: PH,URINE; Value: 5.0; Range: 5.0-9.0; Units: UNITS; Status: F Test: SPECIFIC GRAVITY URINE AUTO; Value: 1.013; Range: 1.002-1.035; Status: F Test: PROTEIN, URINE AUTO; Value: NEGATIVE; Range: NEGATIVE; Units: mg/dL; Status: F Test: GLUCOSE, URINE (UA) AUTO; Value: NEGATIVE; Range: NEGATIVE; Units: mg/dL; Status: F Test: KETONE, URINE AUTO; Value: NEGATIVE; Range: NEGATIVE; Units: mg/dL; Status: F Test: UROBILINOGEN, URINE AUTO; Value: 0.2; Range: 0.0-2.0; Units: mg/dL; Status: F Test: BILIRUBIN, URINE AUTO; Value: NEGATIVE; Range: NEGATIVE; Status: F Test: NITRITE, URINE AUTO; Value: NEGATIVE; Range: NEGATIVE; Status: F Test: LEUKOCYTE ESTERASE, URINE AUTO; Value: 1+; Range: NEGATIVE; Abnormal: Above high normal; Status: F Test: BLOOD, URINE BLOOD; Value: NEGATIVE; Range: NEGATIVE; Status: F Test: WBC, URINE AUTO; Value: 15; Range: 0-3; Abnormal: Above high normal; Units: /HPF; Status: F Test: RBC, URINE AUTO; Value: 2; Range: 0-3; Units: /HPF; Status: F Test: BACTERIA, URINE AUTO; Value: 1+; Range: NEGATIVE; Abnormal: Above high normal; Status: F Test: SQUAMOUS EPITHELIAL CELL UR AU; Value: 1; Range: 0-6; Units: /HPF; Status: F Test: HYALINE CAST, URINE AUTO; Value: 19; Range: 0-1; Units: /LPF; Status: F Lab Order: OSMOLALITY,URINE; [facility] 07/27/16 21:38 Test: OSMOLALITY URINE; Value: 344; Range: 500-800; Abnormal: Below low normal; Units: MOSM/KG; Status: F Lab Order: CALCIUM,RANDOM URINE; 07/27/16 21:38 Test: CALCIUM,RANDOM URINE; Value: 17.3; Units: MG/DL; Status: F Lab Order: SODIUM,RANDOM URINE; [facility] 07/27/16 21:38 Test: SODIUM,RANDOM URINE; Value: 28; Units: MEQ/L; Status: F Lab Order: POTASSIUM,RANDOM URINE; [facility] 07/27/16 21:38 Test: POTASSIUM RANDOM URINE; Value: 30.7; Units: MEQ/L; Status: F Lab Order: SERUM PROTEIN ELECTROPHORESIS; [facility] 07/27/16 20:59 Test: ALBUMIN %; Range: 55.8-66.1; Units: %; Status: I Test: AXGNY-8-NPACJJDN %; Range: 2.9-4.9; Units: %; Status: I Test: JXKYQ-7-GLGTCECZG %; Range: 7.1-11.8; Units: %; Status: I Test: ZPBW-0-PUNRDMFGK %; Range: 4.7-7.2; Units: %; Status: I Test: BNHU-5-SENAIOSCM %; Range: 3.2-6.5; Units: %; Status: I Test: GAMMA GLOBULIN %; Range: 11.1-18.8; Units: %; Status: I Test: ALBUMIN; Range: 3.29-5.55; Units: GM/DL; Status: I Test: TEMWQ-9-AXTJFJYPO; Range: 0.17-0.41; Units: GM/DL; Status: I Test: RMOKX-5-CRKYPZVHO; Range: 0.42-0.99; Units: GM/DL; Status: I Test: LVIM-9-EEMAQURIN; Range: 0.28-0.60; Units: GM/DL; Status: I Test: FHFL-6-CIQOLNCJG; Range: 0.19-0.55; Units: GM/DL; Status: I Test: GAMMA GLOBULINS; Range: 0.65-1.58; Units: GM/DL; Status: I Test: TOTAL PROTEIN; Value: 6.5; Range: 6.4-8.2; Units: GM/DL; Status: F Test: SPEP INTERPRETATION; Status: I Lab Order: URINE PROTEIN ELECTROPHORESIS; 07/27/16 21:38 Test: URINE VOLUME; Units: ML; Status: I Test: URINE TOTAL PROTEIN; Value: 15.2; Range: 0-12; Abnormal: Above high normal; Units: MG/DL; Status: F Test: UPEP INTERPRETATION; Status: I Lab Order: TOTAL PROTEIN,RANDOM URINE; 07/27/16 21:38 Test: TOTAL PROTEIN,RANDOM URINE; Value: 15.2; Range: 0.0-12.0; Abnormal: Above high normal; Units: MG/DL; Status: F Lab Order: CREATININE,RANDOM URINE; 07/27/16 21:38 Test: CREATININE,RANDOM URINE; Value: 68.3; Units: MG/DL; Status: F Lab Order: COMPLETE BLOOD COUNT; 07/28/16 07:18 Test: WHITE BLOOD COUNT; Value: 8.8; Range: 4.0-10.0; Units: K/mm3; Status: F Test: RED BLOOD COUNT; Value: 4.34; Range: 4.00-5.40; Units: M/mm3; Status: F Test: HEMOGLOBIN; Value: 13.7; Range: 12.0-16.0; Units: g/dl; Status: F Test: HEMATOCRIT; Value: 41.5; Range: 36.0-47.0; Units: %; Status: F Test: MEAN CORPUSCULAR VOLUME; Value: 95.7; Range: 80.0-96.0; Units: fl; Status: F Test: MEAN CORPUSCULAR HEMOGLOBIN; Value: 31.7; Range: 27.0-33.0; Units: pg; Status: F Test: MEAN CORPUSCULAR HGB CONC; Value: 33.1; Range: 32.0-36.5; Units: g/dl; Status: F Test: RED CELL DISTRIBUTION WIDTH; Value: 12.6; Range: 11.5-14.5; Units: %; Status: F Test: PLATELET COUNT, AUTOMATED; Value: 373; Range: 150-450; Units: k/mm3; Status: F Lab Order: BASIC METABOLIC PROFILE; [facility] 07/28/16 07:18 Test: GLUCOSE, FASTING; Value: 84; Range: 83-110; Units: MG/DL; Status: F Test: BLOOD UREA NITROGEN; Value: 37; Range: 7-18; Abnormal: Above high normal; Units: MG/DL; Status: F Test: CREATININE FOR GFR; Value: 1.27; Range: 0.55-1.02; Abnormal: Above high normal; Units: MG/DL; Status: F Test: SODIUM LEVEL; Range: 136-145; Units: MEQ/L; Status: I Test: POTASSIUM SERUM; Range: 3.5-5.1; Units: MEQ/L; Status: I Test: CHLORIDE LEVEL; Range: 98-107; Units: MEQ/L; Status: I Test: CARBON DIOXIDE LEVEL; Range: 21-32; Units: MEQ/L; Status: I Test: ANION GAP; Range: 8-16; Units: MEQ/L; Status: I Test: CALCIUM LEVEL; Range: 8.8-10.2; Units: MG/DL; Status: I Test: GLOMERULAR FILTRATION RATE; Value: 42.5; Range: >32; Status: F Test: SODIUM LEVEL; Value: 148; Range: 136-145; Abnormal: Above high normal; Units: MEQ/L; Status: F Test: POTASSIUM SERUM; Value: 4.2; Range: 3.5-5.1; Abnormal: Delta; Units: MEQ/L; Status: F Test: CHLORIDE LEVEL; Value: 109; Range: 98-107; Abnormal: Above high normal; Units: MEQ/L; Status: F Test: CARBON DIOXIDE LEVEL; Value: 32; Range: 21-32; Units: MEQ/L; Status: F Test: ANION GAP; Value: 7; Range: 8-16; Abnormal: Below low normal; Units: MEQ/L; Status: F Test: CALCIUM LEVEL; Value: 11.6; Range: 8.8-10.2; Abnormal: Above high normal; Units: MG/DL; Status: F Test Note: ; Units are mL/min/1.73 m2 Chronic Kidney Disease Staging per NKF: Stage I & II GFR >=60 Normal to Mildly Decreased Stage III GFR 30-59 Moderately Decreased Stage IV GFR 15-29 Severely Decreased Stage V GFR <15 Very Little GFR Left ESRD GFR <15 on BOAT PILOT Lab Order: IONIZED CALCIUM; SPEC'M 07/28/16 07:18 Test: IONIZED CALCIUM; Value: 5.9; Range: 4.5-5.3; Abnormal: Above high normal; Units: MG/DL; Status: F Lab Order: MAGNESIUM LEVEL; SPEC'M 07/28/16 07:18 Test: MAGNESIUM LEVEL; Value: 2.1; Range: 1.8-2.4; Units: MG/DL; Status: F Radiology Order: Chest, 1 View Test: Chest, 1 View REASON FOR EXAMINATION: Shortness of Breath; CHEST, ONE VIEW:; ; HISTORY: Shortness of breath.; ; COMPARISON: 07/16/2016; ; A minimal increase in interstitial markings is present in the lungs. The heart is; upper limits of normal in size. The pulmonary vasculature is prominent.; ; IMPRESSION: There is a minimal increase in interstitial markings in the lungs.; This may represent interstitial edema or pneumonia.; ; ; Signed by; Kehinde Wills MD 07/27/2016 06:22 P; Radiology Order: Thyroid, ST head+neck US Test: Thyroid, ST head+neck US REASON FOR EXAMINATION: hypercalcemia; Clinical: Hypercalcemia.; ; Technique: Real-time bryant scale and color evaluation of the thyroid gland using; linear high frequency transducer.; ; Findings:; The patient gives a history of prior right thyroidectomy.; Residual right thyroid tissue measures 1.7 x 0.8 x 0.9 cm and includes 2.6 mm; hypoechoic mid pole lesion with mural calcification and 2.8 mm lower pole cystic; lesion with small amount of mural calcification. Left thyroid lobe measures 3.2 x; 1.9 x 1.9 cm and includes 1.2 cm upper pole isoechoic nodule along with 5 mm mid; pole nodule, 1.2 centimeter mid/lower pole and 6.2 mm lower pole cysts.; ; Impression:; 1. Residual right thyroid tissue with small hypoechoic lesions as noted above.; 2. Left lobe demonstrating 1.2 cm isoechoic nodule and 1.2 cm anechoic cyst.; ; ; Signed by; Chuy Pate MD 07/28/2016 07:51 A; Radiology Order: CT Chest without contrast Test: CT Chest without contrast REASON FOR EXAMINATION: r/o malignancy; CT study of the chest without contrast:; ; History: Question malignancy.; ; Comparison CT study is from March 12, 2016.; ; Findings: The previously noted left lobe thyroid hypodense lesion is not seen.; There are clips at the trachea. The patient appears to be status post right; thyroid lobectomy. There is no evidence of hilar or mediastinal lymphadenopathy.; No pleural or pericardial effusion is seen. No adrenal lesion is seen. There; are two intrarenal calculi in the left upper kidney. Vascular calcification is; noted in the aorta and its branches.; ; On lung window settings, there are emphysematous changes in the upper lobes; bilaterally. Mild bibasilar linear fibrosis is seen. No pulmonary mass lesion; or significant nodule is appreciated. No bony destructive lesion is seen. There; is a levoconvex curvature in the lower thoracic spine.; ; Impression:; ; Evidence of COPD. No evidence of lung mass, adenopathy or significant nodule.; ; ; ; ; Unreviewed; Outcome: 19:19 Decision to Hospitalize by Provider. br1 07/28 12:17 Patient left the ED. kcs Signatures: Dispatcher [employer] EDKavitha Mccracken, RN RN Jie Schafer, RN RN Valdemar Mendez MD MD br1 Marj Fernandez, OJ [employer] INSTALLER ct3 Darya Zayas, RN RN sls1 Ly, Stone hgl Ana Rosa Rich RN RN mk4 Angela OroscoRN RN Laura Benoit MeganRN RN mv5 MTDD
[2016-07-28] MEDS: NS 0.45% 1,000 ML IV SCH (14:20)
[2016-07-28 16:00] VITALS: BP 161/75
[2016-07-28] MEDS: ACETAMINOPHEN 500 MG TAB PO PRN (17:43)
[2016-07-28 20:00] VITALS: BP 150/72
[2016-07-28] MEDS: MULTIVITAMINS/MINERALS THERAP 1 TAB PO SCH (21:45)
[2016-07-28] MEDS: BISOPROLOL FUMARATE 10 MG TAB PO SCH (21:45)
[2016-07-29] VITALS: BP 167/73
[2016-07-29] MEDS: NS 0.45% 1,000 ML IV SCH (03:26)
[2016-07-29 04:00] VITALS: BP 198/92
[2016-07-29] MEDS: ACETAMINOPHEN 500 MG TAB PO PRN (04:39)
[2016-07-29] MEDS: HEPARIN SOD (PORCINE) 5000 UNITS/ML VIAL SC SCH ×3 (05:13→21:41)
[2016-07-29] MEDS ORDERED: hydrALAZINE INJ 20 MG/ML VIAL IV ONE (05:15)
[2016-07-29 05:26] LABS: MEAN CORPUSCULAR HEMOGLOBIN 31.4 pg (27.0-33.0); MEAN CORPUSCULAR HGB CONC 32.9 g/dl (32.0-36.5); MEAN CORPUSCULAR VOLUME 95.3 fl (80.0-96.0); RED CELL DISTRIBUTION WIDTH 12.9 % (11.5-14.5); WHITE BLOOD COUNT 9.6 K/mm3 (4.0-10.0)
[2016-07-29 05:44] LABS: CALCIUM LEVEL 9.6 MG/DL (8.8-10.2); CREATININE FOR GFR 1.26 MG/DL (0.55-1.02); GLOMERULAR FILTRATION RATE 42.9 (>32); MAGNESIUM LEVEL 1.7 MG/DL (1.8-2.4); POTASSIUM SERUM 3.6 MEQ/L (3.5-5.1)
[2016-07-29] MEDS ORDERED: FUROSEMIDE 20 MG/2 ML VIAL (J1940) IV ONE (07:30)
[2016-07-29] MEDS ORDERED: MAG SULF 1GM/100ML (MAG RUN) 1 GM in APPROPRIATE DILUENT 1 EA IV ONE (07:30)
[2016-07-29] MEDS: TIOTROPIUM INHALER/CAPSULE (SPIRIVA) INH SCH (07:39)
[2016-07-29 08:00] VITALS: BP 130/70
[2016-07-29] MEDS: POLYVINYL ALCOHOL OPHTH SOLN 15 ML(LIQUITEARS) OU SCH ×2 (08:19→21:00)
[2016-07-29] MEDS: SENOKOT S TAB PO SCH ×2 (08:20→21:42)
[2016-07-29] MEDS: FLUTICASONE PROP 0.05% NASAL SPRAY 16 GM (FLONASE) SCH (08:20)
[2016-07-29] MEDS: ASPIRIN 81 MG ENTERIC TAB PO SCH (08:20)
--- NOTE | 2016-07-29 13:11 | IPNPDOC ---
Date Seen The patient was seen on 07/28/16. Subjective CC/HPI The patient is a 85-year-old female admitted with a reason for visit of Hypercalcemia. Events since last encounter no complaints this am. Objective General Exam: Positive: Alert, No Acute Distress Eye Exam: Positive: Conjunctiva & lids normal, EOMI, PERRLA, Negative: Sclera icteric ENT Exam: Positive: Atraumatic, Mucous membr. moist/pink, Pharynx Normal Chest Exam: Positive: Clear to auscultation, Normal air movement Heart Exam: Positive: Normal S1, Normal S2, Rate Normal, Regular Rhythm, Negative: Murmurs, Rubs Telemetry: Positive: No significant arrhythmia Abdomen Exam: Positive: Normal bowel sounds, Soft, Negative: Hepatospenomegaly, Tenderness Extremity Exam: Positive: Normal pulses, Negative: Clubbing, Cyanosis, Edema Problems (1) Hypercalcemia Status: Acute Problem Text: work up sent. (2) Acute kidney injury Status: Acute Problem Text: from hypercalcemia, (3) Hypothyroid Status: Chronic Response to Treatment: Stable (4) Hypertension Status: Chronic (5) Paroxysmal a-fib Status: Chronic (6) Nephrolithiasis Status: Chronic Problem Text: has h/o lithotripsy (7) Asthma Status: Chronic Plan/VTE VTE Prophylaxis Ordered?: Yes VS, I&O, 24H, Fishbone Vital Signs Date Time Temp Pulse Resp B/P Pulse Ox O2 Delivery O2 Flow Rate FiO2 07/28/16 08:00 98.2 70 20 150/78 91 Room Air I&O- Last 24 Hours up to 6 AM 07/28/16 05:59 Intake Total 120 ml Output Total 600 ml Balance -480 ml Laboratory Tests 2 07/27/16 17:21: Anion Gap 8, White Blood Count 10.1H, Red Blood Count 4.32, Hemoglobin 13.5, Hematocrit 41.4, Mean Corpuscular Volume 95.9, Mean Corpuscular Hemoglobin 31.2 , Mean Corpuscular Hemoglobin Concent 32.5, Red Cell Distribution Width 12.5, Platelet Count 411, Neutrophils (%) (Auto) 66.1H, Lymphocytes (%) (Auto) 16.4L, Monocytes (%) (Auto) 7.7H, Eosinophils (%) (Auto) 5.4H, Basophils (%) (Auto) 0.6 , Neutrophils # (Auto) 6.7, Lymphocytes # (Auto) 1.7, Monocytes # (Auto) 0.8, Eosinophils # (Auto) 0.5, Basophils # (Auto) 0.1, Blood Urea Nitrogen 46H, Creatinine 1.53H, Sodium Level 142, Potassium Level 3.2L, Chloride Level 98, Carbon Dioxide Level 36H, Calcium Level 13.3H, Glomerular Filtration Rate 34.3, Large Unclassified Cells # 0.4, Large Unclassified Cells % 3.9 07/27/16 20:59: 25-Hydroxy Vitamin D Total 53.5, Free Thyroxine Index 3.7, Parathyroid Hormone ( Intact) < 6.3L, Thyroid Stimulating Hormone (TSH) 1.720, Thyroxine (T4) 9.1, Total Protein 6.5, Triiodothyronine (T3) Uptake 41H, Whole Blood Ionized Calcium 6.1H 07/27/16 21:38: Urine Amorphous Sediment , Urine Appearance CLEAR, Urine Color YELLOW, Urine pH 5.0, Urine Specific [place] 1.013, Urine Protein NEGATIVE, Urine Glucose (UA) NEGATIVE, Urine Ketones NEGATIVE, Urine Urobilinogen 0.2, Urine Bilirubin NEGATIVE, Urine Leukocyte Esterase 1+H, Urine Bacteria (Auto) 1+H, Urine Blood NEGATIVE, Urine Calcium Carbonate Cryst(Auto) , Urine Calcium Oxalate Cryst ( Auto) , Urine Calcium Phosphate Marge (Auto) , Urine Cellular Casts , Urine Cystine Crystals , Urine Granular Casts (Auto) , Urine Hyaline Casts (Auto) 19, Urine Leucine Crystals , Urine Mucus (Auto) , Urine Nitrite NEGATIVE, Urine Oval Fat Bodies (Auto) , Urine Total Protein 15.2H, Urine RBC (Auto) 2, Urine Random Calcium 17.3, Urine Random Creatinine 68.3, Urine Random Osmolality 344L , Urine Random Potassium 30.7, Urine Random Sodium 28, Urine Random Total Protein 15.2H, Urine Renal Epithelial Cells , Urine Sperm (Auto) , Urine Squamous Epithelial Cells 1, Urine Transitional Epithelial Cells , Urine Trichomonas (Auto) , Urine Triple Phosphate Cryst (Auto) , Urine Tyrosine Crystals , Urine Uric Acid Crystals (Auto) , Urine WBC (Auto) 15H, Urine Waxy Casts (Auto) , Urine Yeast-Like Cells (Auto) 07/28/16 07:18: Anion Gap 7L, Blood Urea Nitrogen 37H, Creatinine 1.27H, Sodium Level 148H, Potassium Level 4.2#, Chloride Level 109H, Carbon Dioxide Level 32, Calcium Level 11.6H, Glomerular Filtration Rate 42.5, Whole Blood Ionized Calcium 5.9H, Magnesium Level 2.1 Laboratory Tests 07/27/16 17:21 Calcium Level 13.3 H, Red Blood Count 4.32, Mean Corpuscular Volume 95.9, Mean Corpuscular Hemoglobin 31.2, Mean Corpuscular Hemoglobin Concent 32.5, Red Cell Distribution Width 12.5, Neutrophils (%) (Auto) 66.1 H, Lymphocytes (%) (Auto) 16.4 L, Monocytes (%) (Auto) 7.7 H, Eosinophils (%) (Auto) 5.4 H, Basophils (%) (Auto) 0.6, Neutrophils # (Auto) 6.7, Lymphocytes # (Auto) 1.7, Monocytes # ( Auto) 0.8, Eosinophils # (Auto) 0.5, Basophils # (Auto) 0.1 07/28/16 07:18 Calcium Level 11.6 H, Red Blood Count 4.34, Mean Corpuscular Volume 95.7, Mean Corpuscular Hemoglobin 31.7, Mean Corpuscular Hemoglobin Concent 33.1, Red Cell Distribution Width 12.6 MICHELLE COLBERT MD Jul 28, 2016 14:08
--- NOTE | 2016-07-29 13:14 | IPNPDOC ---
Subjective General Date Seen The patient was seen on 07/29/16. Chief Complaint/HPI The patient is a 85-year-old female admitted with a reason for visit of Hypercalcemia. Subjective Events since last encounter no complaints this am. Objective Physical Examination General Exam: Positive: Alert, No Acute Distress Eye Exam: Positive: Conjunctiva & lids normal, EOMI, PERRLA, Negative: Sclera icteric ENT Exam: Positive: Atraumatic, Mucous membr. moist/pink, Pharynx Normal Chest Exam: Positive: Clear to auscultation, Normal air movement Heart Exam: Positive: Normal S1, Normal S2, Rate Normal, Regular Rhythm, Negative: Murmurs, Rubs Telemetry: Positive: No significant arrhythmia Abdomen Exam: Positive: Normal bowel sounds, Soft, Negative: Hepatospenomegaly, Tenderness Extremity Exam: Positive: Normal pulses, Negative: Clubbing, Cyanosis, Edema Assessment /Plan Problems Problems: (1) Hypercalcemia Status: Resolved Problem Text: PTH low, vit D 25 OH normal others in progress. UPEP and SPEP in process. (2) Acute kidney injury Status: Acute Response to Treatment: Improving Problem Text: from hypercalcemia, (3) Hypothyroid Status: Chronic Response to Treatment: Stable (4) Hypertension Status: Chronic Response to Treatment: Uncontrolled Problem Text: stopped ivf given 1 dose of lasix. (5) Paroxysmal a-fib Status: Chronic (6) Nephrolithiasis Status: Chronic Problem Text: has h/o lithotripsy (7) Asthma Status: Chronic Plan/VTE VTE Prophylaxis Ordered?: Yes VS, I&O, 24H, Fishbone Vital Signs/I&O Vital Signs Date Time Temp Pulse Resp B/P Pulse Ox O2 Delivery O2 Flow Rate FiO2 07/29/16 08:00 96.4 72 20 130/70 97 Nasal Cannula 1.0 I&O- Last 24 Hours up to 6 AM 07/29/16 05:59 Intake Total 2420 ml Output Total 1200 ml Balance 1220 ml Laboratory Data 24H LABS Laboratory Tests 2 07/28/16 17:30: Urine Random Chloride 62 07/29/16 05:09: Anion Gap 8, Blood Urea Nitrogen 32H, Creatinine 1.26H, Sodium Level 146H, Potassium Level 3.6, Chloride Level 110H, Carbon Dioxide Level 28, Calcium Level 9.6#, Glomerular Filtration Rate 42.9, Magnesium Level 1.7L CBC/BMP Laboratory Tests 07/29/16 05:09 Calcium Level 9.6 #, Red Blood Count 3.86 L, Mean Corpuscular Volume 95.3, Mean Corpuscular Hemoglobin 31.4, Mean Corpuscular Hemoglobin Concent 32.9, Red Cell Distribution Width 12.9 MICHELLE COLBERT MD Jul 29, 2016 13:14
[2016-07-29 13:50] LABS: ALBUMIN 3.26 GM/DL (3.29-5.55); ALBUMIN % 50.1 % (55.8-66.1); GAMMA GLOBULIN % 14.5 % (11.1-18.8)
[2016-07-29 14:00] VITALS: BP 152/70
--- NOTE | 2016-07-29 17:35 | ECGEPIP ---
Stationary ECG Study [facility] - ED Test Date: 2016-07-27 Pat Name: ANJU VELASCO Department: Room: [place] [address] Gender: F Muffler Hand: DRE : 1930 Requested By: EILEEN Julien Order Number: [id number] Reading MD: Nereyda Zuniga Measurements Intervals Covert Rate: 71 P: 73 AR: 153 QRS: 34 QRSD: 99 T: 56 QT: 402 QTc: 439 Interpretive Statements SINUS RHYTHM VOLTAGE CRITERIA FOR LVH NSTTW ABNORMALITY Electronically Signed On 07-29-2016 17:35:29 EST by Nereyda Zuniga
[2016-07-29] MEDS: BISOPROLOL FUMARATE 10 MG TAB PO SCH (21:41)
[2016-07-29] MEDS: MULTIVITAMINS/MINERALS THERAP 1 TAB PO SCH (21:41)
[2016-07-29 22:00] VITALS: BP 150/72
[2016-07-30] MEDS: HEPARIN SOD (PORCINE) 5000 UNITS/ML VIAL SC SCH (05:15)
[2016-07-30 06:00] VITALS: BP 140/70
[2016-07-30 06:17] LABS: MEAN CORPUSCULAR HEMOGLOBIN 31.1 pg (27.0-33.0); MEAN CORPUSCULAR HGB CONC 32.5 g/dl (32.0-36.5); MEAN CORPUSCULAR VOLUME 95.5 fl (80.0-96.0); RED CELL DISTRIBUTION WIDTH 13.2 % (11.5-14.5); WHITE BLOOD COUNT 9.5 K/mm3 (4.0-10.0)
[2016-07-30 06:40] LABS: CALCIUM LEVEL 9.4 MG/DL (8.8-10.2); CREATININE FOR GFR 1.09 MG/DL (0.55-1.02); GLOMERULAR FILTRATION RATE 50.7 (>32); MAGNESIUM LEVEL 1.9 MG/DL (1.8-2.4); POTASSIUM SERUM 3.4 MEQ/L (3.5-5.1)
[2016-07-30] MEDS ORDERED: POTASSIUM CHLORIDE 10 MEQ SR TABLET PO ONE (08:00)
[2016-07-30] MEDS: POLYVINYL ALCOHOL OPHTH SOLN 15 ML(LIQUITEARS) OU SCH (08:44)
[2016-07-30] MEDS: SENOKOT S TAB PO SCH ×2 (08:45→09:00)
[2016-07-30] MEDS: ASPIRIN 81 MG ENTERIC TAB PO SCH (08:45)
[2016-07-30] MEDS: FLUTICASONE PROP 0.05% NASAL SPRAY 16 GM (FLONASE) SCH (09:00)
[2016-07-30] MEDS: TIOTROPIUM INHALER/CAPSULE (SPIRIVA) INH SCH (09:15)
[2016-07-30 11:35] VITALS: BP 185/79
[2016-07-30 12:26] VITALS: BP 185/79
[2016-07-30] MEDS ORDERED: RAMIPRIL 5 MG CAP PO ONE (12:30)
[2016-07-30 13:00] VITALS: BP 176/74
--- NOTE | 2016-07-30 13:17 | EDDOCDS ---
Physician Documentation [facility] Name: Ana Rosa Brooks Age: 85 yrs Sex: Female : 1930 Arrival Date: 07/27/2016 Time: 16:30 Bed Admit Hold Private MD: Ashley Sky Disposition: 07/27/16 19:19 Hospitalization ordered by Jaylin Connolly for Inpatient Admission. Preliminary diagnosis is Hypercalcemia. - Bed requested for PCU. - Status is Inpatient Admission. kcs - Condition is Stable. - Problem is new. - Symptoms are unchanged. Historical: - Allergies: Wasps; - Home Meds: 1. aspirin 81 mg Oral tab 1 tab once daily 2. bisoprolol-hydrochlorothiazide 10-6.25 mg oral tab 2 tab once daily 3. Calcium 600 + D3 600/400 units 2X/day daily 4. epi-pen 0.3mg/0.3ml 1 unit as directed 5. Fluitcasone Propionate susp 50 mcg/act 2 sprays each nostril daily daily 6. magnesium oxide 250 mg Oral tab daily 7. multivitamin Oral tab daily 8. Osteo Bi-Flex Triple Strength oral 1 tab daily 9. Proair HFA 108 mcg/act 2 puffs four times per day as needed as needed 10. ramipril 10 mg Oral cap 1 cap once daily 11. Prolia 60 mg/ml 2X/year 12. Refresh optive 0.5-0.9% 1 drop both eyes daily 13. Spiriva with HandiHaler 18 mcg Inhl CpDv once daily 14. Vitamin D3 1,000 unit oral tab daily - PMHx: Thyroid problem; paroxysmal Vtach; Hypertension; Asthma; Palpitations; - PSHx: Thyroid Surgery; ureter repair; Hysterectomy; Appendectomy; kidney stone removal; Hip Arthroplasty, Left; - Social history: No barriers to communication noted, The patient speaks fluent [place], Speaks appropriately for age, Smoking status: Patient states former smoker of tobacco. - Family history: Not pertinent. - : The pt / caregiver states he / she is not on anticoagulants. Home medication list is obtained from the patient, [employer] import data. - Exposure Risk Screening:: None identified. Vital Signs: 07/27 16:35 BP 179 / 81; Pulse 79; Resp 18; Temp 97.1(O); Pulse Ox 99% on R/A; Weight 43.09 kg / 95 ct3 lbs (R); Height 5 ft. 0 in. (152.40 cm) (R); Pain 5/10; 17:24 BP 175 / 88 (auto/); mk4 17:25 Pulse 74 MON; Pulse Ox 93% ; mk4 17:39 BP 170 / 79 (auto/); mk4 17:39 Pulse 66 MON; Pulse Ox 91% ; mk4 17:54 BP 175 / 81 (auto/); mk4 17:54 Pulse 72 MON; Pulse Ox 90% ; mk4 18:09 BP 183 / 85 (auto/); mk4 18:09 Pulse 80 MON; Pulse Ox 91% ; mk4 18:24 BP 174 / 84 (auto/); mk4 18:24 Pulse 70 MON; Pulse Ox 91% ; mk4 18:39 BP 189 / 89 (auto/); mk4 18:39 Pulse 72 MON; Pulse Ox 92% ; mk4 18:54 BP 183 / 86 (auto/); mk4 18:54 Pulse 74 MON; Pulse Ox 90% ; mk4 19:39 BP 178 / 84 (auto/); mv5 19:39 Pulse 72 MON; Pulse Ox 90% ; mv5 19:54 BP 188 / 91 (auto/); mv5 19:54 Pulse 76 MON; Pulse Ox 91% ; mv5 20:39 BP 169 / 77 (auto/); mv5 20:39 Pulse 72 MON; Pulse Ox 89% ; mv5 20:54 BP 166 / 80 (auto/); mv5 20:54 Pulse 74 MON; Pulse Ox 89% ; mv5 21:09 BP 180 / 86 (auto/); mv5 21:09 Pulse 76 MON; Pulse Ox 90% ; mv5 16:35 Body Mass Index 18.55 (43.09 kg, 152.40 cm) ct3 MDM: 16:45 IV Saline Lock ordered. br1 16:45 CBC with Diff Ordered. EDMS 16:45 BMP Ordered. EDMS 17:11 Fly Worker/Pulse Ox/q 30 min VS ordered. br1 17:11 NS 0.9% 1000 ml IV at 150 mL/hr continuous ordered. br1 17:12 ECG WITH READING ER PHYS+CARDIAG ordered. EDMS 17:46 Chest, 1 View Ordered. EDMS 18:02 CBC with Diff Reviewed. br1 18:02 BMP Reviewed. br1 18:02 Potassium Chloride Extended Release Tablet 40 mEq PO once ordered. br1 18:06 BED REQUEST+ADM ordered. EDMS 18:37 Financial registration complete. b 19:40 [facility] Payment Agreement was scanned into ZALP and attached to record. gjb 20:37 2 GRAM SODIUM DIET ordered. EDMS 20:37 THYROID PROFILE Ordered. EDMS 20:37 VITAMIN D, 25-HYDROXY Ordered. EDMS 20:37 PTH INTACT Ordered. EDMS 20:38 IONIZED CALCIUM Ordered. EDMS 20:38 URINALYSIS Ordered. EDMS 20:38 OSMOLALITY,URINE Ordered. EDMS 20:38 CALCIUM,RANDOM URINE Ordered. EDMS 20:38 SODIUM,RANDOM URINE Ordered. EDMS 20:38 POTASSIUM,RANDOM URINE Ordered. EDMS 20:38 SERUM PROTEIN ELECTROPHORESIS Ordered. EDMS 20:38 URINE PROTEIN ELECTROPHORESIS Ordered. EDMS 20:38 TOTAL PROTEIN,RANDOM URINE Ordered. EDMS 20:38 CREATININE,RANDOM URINE Ordered. EDMS 20:38 COMPLETE BLOOD COUNT Ordered. EDMS 20:38 BASIC METABOLIC PROFILE Ordered. EDMS 20:39 IONIZED CALCIUM Ordered. EDMS 20:40 PHYSICAL THERAPY EVAL ONLY ordered. EDMS 20:40 Thyroid, ST head+neck US Ordered. EDMS 21:15 Admission / Observation Status ordered. EDMS 22:16 MAGNESIUM LEVEL Ordered. EDMS 02/07 06:47 CT Chest without contrast Ordered. EDMS 06:47 CHLORIDE,RANDOM URINE Ordered. EDMS 07:07 PTH RELATED PEPTIDE Ordered. EDMS 07:07 VIT D 1,25 DIHYDROXY Ordered. EDMS 12:34 T-Sheet-- Draft Copy was scanned into [employer]ALP and attached to record. gb 12:34 ECG/EKG was scanned into [employer]AL[employer] and attached to record. gb 12:35 Radiology Report was scanned into [employer]ALP and attached to record. gb Administered Medications: 07/27 17:47 Drug: NS 0.9% 1000 ml [sodium chloride 0.9 % intravenous solution] Route: IV; Rate: 150 mk4 mL/hr; Site: left antecubital; 18:16 Drug: Potassium Chloride 40 mEq [potassium chloride ER 10 mEq tablet,extended release mk4 (4 tabs)] Route: PO; 19:23 Follow up: Response: No Adverse Reaction mv5 Signatures: Dispatcher [employer] Kavitha Alvarez RN RN Mirella Castanon, Reg Reg gb Valdemar Britton MD MD br1 Ana Rosa Rich RN RN mk4 Angela Orosco RN RN Laura Benoitb Katelynn Mutsafa RN mv5 The chart was reviewed and I authenticate all verbal orders and agree with the evaluation and treatment provided.Corrections: (The following items were deleted from the chart) 22:16 21:14 MAGNESIUM LEVEL ordered. EDMS EDMS Attachments: 19:40 [facility] Payment Agreement [facility] 07/28 12:34 T-Sheet-- Draft Copy gb 12:34 ECG/EKG gb Chart Complete MTDD
--- NOTE | 2016-07-30 13:18 | EDDOCDS ---
Nurse's Notes [facility] Name: Ana Rosa Brooks Age: 85 yrs Sex: Female : 1930 Arrival Date: 07/27/2016 Time: 16:30 Bed Admit Hold Private MD: Ashley Sky Diagnosis: Hypercalcemia Presentation: 07/27 16:38 Presenting complaint: Patient states: pt had blood work done by Dr. Sky this ead morning, pt was called and told she had elevated calcium. pt reports "urinary problems, the urine was real dark.". Adult Sepsis Screening: The patient does not have new or worsening altered mentation. Patient's respiratory rate is less than 22. Systolic blood pressure is greater than 100. Patient has a qSOFA score of 0- Negative Sepsis Screen. Suicide/Homicide risk assessment- the patient denies having any suicidal and/or homicidal ideations and does not present with any other emotional, behavioral or mental health complaints. 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 Transition of care: patient was not received from another setting of care. 16:38 Acuity: STEWART Level 3 ead 16:38 Method Of Arrival: Walkin/Carried/Asstd ead Triage Assessment: 16:42 General: Appears in no apparent distress, comfortable, Behavior is appropriate for age, ead cooperative. Pain: Denies pain. Neurological: Level of Consciousness is awake, alert, obeys commands, Oriented to person, place, time. Cardiovascular: Chest pain is denied. Respiratory: Airway is patent Respiratory effort is even, unlabored, Reports shortness of breath. Derm: Skin is pink, warm & dry. Historical: - Allergies: Wasps; - Home Meds: 1. aspirin 81 mg Oral tab 1 tab once daily 2. bisoprolol-hydrochlorothiazide 10-6.25 mg oral tab 2 tab once daily 3. Calcium 600 + D3 600/400 units 2X/day daily 4. epi-pen 0.3mg/0.3ml 1 unit as directed 5. Fluitcasone Propionate susp 50 mcg/act 2 sprays each nostril daily daily 6. magnesium oxide 250 mg Oral tab daily 7. multivitamin Oral tab daily 8. Osteo Bi-Flex Triple Strength oral 1 tab daily 9. Proair HFA 108 mcg/act 2 puffs four times per day as needed as needed 10. ramipril 10 mg Oral cap 1 cap once daily 11. Prolia 60 mg/ml 2X/year 12. Refresh optive 0.5-0.9% 1 drop both eyes daily 13. Spiriva with HandiHaler 18 mcg Inhl CpDv once daily 14. Vitamin D3 1,000 unit oral tab daily - PMHx: Thyroid problem; paroxysmal Vtach; Hypertension; Asthma; Palpitations; - PSHx: Thyroid Surgery; ureter repair; Hysterectomy; Appendectomy; kidney stone removal; Hip Arthroplasty, Left; - Social history: No barriers to communication noted, The patient speaks fluent Tajik, Speaks appropriately for age, Smoking status: Patient states former smoker of tobacco. - Family history: Not pertinent. - : The pt / caregiver states he / she is not on anticoagulants. Home medication list is obtained from the patient, Maya's Mom import data. - Exposure Risk Screening:: None identified. Screenin:39 Screening information is obtained from the patient. Fall risk:. Assistance ADL's: mk4 requires no assistance with activities of daily living. Abuse/DV Screen: The patient / caregiver reports he/she is: not in a situation that causes fear, pain or injury. Nutritional screening: No deficits noted. home support is adequate. Assessment: 18:00 General: Appears in no apparent distress, comfortable. Cardiovascular: Capillary refill mk4 Clubbing of nail beds Rhythm is regular Chest pain is denied. Respiratory: Airway is patent Respiratory effort is even, unlabored, Respiratory pattern is regular, Reports pt states she experiences some disc when she takes deep inspirations. Derm: Skin is intact, is healthy with good turgor. 18:39 Neurological: Level of Consciousness is awake, alert. mk4 18:39 General: Appears in no apparent distress, comfortable, Behavior is cooperative. mk4 Respiratory: Airway is patent Respiratory effort is even, unlabored, Respiratory pattern is regular. 19:21 General: Appears in no apparent distress, comfortable. Neurological: Level of mv5 Consciousness is awake, alert, Oriented to person, place, time. Cardiovascular: Capillary refill < 3 seconds Rhythm is regular Chest pain is denied. Respiratory: Airway is patent Respiratory effort is even, unlabored, Respiratory pattern is regular. Derm: Skin is pink, warm & dry. Vital Signs: 16:35 BP 179 / 81; Pulse 79; Resp 18; Temp 97.1(O); Pulse Ox 99% on R/A; Weight 43.09 kg (R); ct3 Height 5 ft. 0 in. (152.40 cm) (R); Pain 5/10; 17:24 BP 175 / 88 (auto/); mk4 17:25 Pulse 74 MON; Pulse Ox 93% ; mk4 17:39 BP 170 / 79 (auto/); mk4 17:39 Pulse 66 MON; Pulse Ox 91% ; mk4 17:54 BP 175 / 81 (auto/); mk4 17:54 Pulse 72 MON; Pulse Ox 90% ; mk4 18:09 BP 183 / 85 (auto/); mk4 18:09 Pulse 80 MON; Pulse Ox 91% ; mk4 18:24 BP 174 / 84 (auto/); mk4 18:24 Pulse 70 MON; Pulse Ox 91% ; mk4 18:39 BP 189 / 89 (auto/); mk4 18:39 Pulse 72 MON; Pulse Ox 92% ; mk4 18:54 BP 183 / 86 (auto/); mk4 18:54 Pulse 74 MON; Pulse Ox 90% ; mk4 19:39 BP 178 / 84 (auto/); mv5 19:39 Pulse 72 MON; Pulse Ox 90% ; mv5 19:54 BP 188 / 91 (auto/); mv5 19:54 Pulse 76 MON; Pulse Ox 91% ; mv5 20:39 BP 169 / 77 (auto/); mv5 20:39 Pulse 72 MON; Pulse Ox 89% ; mv5 20:54 BP 166 / 80 (auto/); mv5 20:54 Pulse 74 MON; Pulse Ox 89% ; mv5 21:09 BP 180 / 86 (auto/); mv5 21:09 Pulse 76 MON; Pulse Ox 90% ; mv5 16:35 Body Mass Index 18.55 (43.09 kg, 152.40 cm) ct3 Vitals: 16:35 Log In Time: July 27, 2016 at 16:32. ct3 ED Course: 16:34 Patient visited by Marj Fernandez PCA. ct3 16:34 Ashley Sky is Private Physician. ct3 16:34 Patient moved to Waiting ct3 16:37 Patient moved to Pre RCE ct3 16:41 Triage Initiated ead 16:44 Patient moved to 14 ead 16:45 Valdemar Britton MD is Attending Physician. br1 17:10 Patient visited by Valdemar Britton MD. br1 17:23 BMP Sent. mk4 17:23 CBC with Diff Sent. mk4 17:47 Patient visited by Ana Rosa Rich, RN. mk4 17:48 Inserted saline lock: 20 gauge in left antecubital area and blood collected. No mk4 procedures done that require assistance. 18:00 The patient / caregiver is instructed regarding the plan of care and ED course. Cardiac mk4 monitor on. Pulse ox on. NIBP on. 18:06 Patient visited by Ana Rosa Rich RN. mk4 18:28 Chest, 1 View Returned. EDMS 18:36 Patient visited by Ana Rosa Rich RN. mk4 19:17 Patient visited by Darya Zayas, FIDENCIO. sls1 19:19 Jaylin Connolly is Hospitalizing Provider. br1 19:19 Katelynn Mustafa,RN is Primary Nurse. mv5 19:40 [facility] Payment Agreement was scanned into [employer] and attached to record. gjb 21:39 Patient moved to 19 sls1 21:39 Patient moved to Admit Hold sls1 21:47 Report given to report to Arleth Figueroa RN. mv5 22:29 Patient moved to Ultrasound hgl 22:58 Patient moved to Admit Hold sls1 0207 08:16 Thyroid, ST head+neck US Returned. EDMS 08:55 CT Chest without contrast Returned. EDMS 11:19 Primary Nurse role handed off by Katelynn Mustafa,RN mcp 12:34 T-Sheet-- Draft Copy was scanned into [employer] and attached to record. gb 12:34 ECG/EKG was scanned into [employer] and attached to record. gb 12:35 Radiology Report was scanned into [employer] and attached to record. gb Administered Medications: 07/27 17:47 Drug: NS 0.9% 1000 ml [sodium chloride 0.9 % intravenous solution] Route: IV; Rate: 150 mk4 mL/hr; Site: left antecubital; 18:16 Drug: Potassium Chloride 40 mEq [potassium chloride ER 10 mEq tablet,extended release mk4 (4 tabs)] Route: PO; 19:23 Follow up: Response: No Adverse Reaction mv5 Order Results: Lab Order: CBC with Diff; SPEC'M 07/27/16 17:21 Test: WHITE BLOOD COUNT; Value: 10.1; Range: 4.0-10.0; Abnormal: Above high normal; Units: K/mm3; Status: F Test: RED BLOOD COUNT; Value: 4.32; Range: 4.00-5.40; Units: M/mm3; Status: F Test: HEMOGLOBIN; Value: 13.5; Range: 12.0-16.0; Units: g/dl; Status: F Test: HEMATOCRIT; Value: 41.4; Range: 36.0-47.0; Units: %; Status: F Test: MEAN CORPUSCULAR VOLUME; Value: 95.9; Range: 80.0-96.0; Units: fl; Status: F Test: MEAN CORPUSCULAR HEMOGLOBIN; Value: 31.2; Range: 27.0-33.0; Units: pg; Status: F Test: MEAN CORPUSCULAR HGB CONC; Value: 32.5; Range: 32.0-36.5; Units: g/dl; Status: F Test: RED CELL DISTRIBUTION WIDTH; Value: 12.5; Range: 11.5-14.5; Units: %; Status: F Test: PLATELET COUNT, AUTOMATED; Value: 411; Range: 150-450; Units: k/mm3; Status: F Test: NEUTROPHILS %; Value: 66.1; Range: 36.0-66.0; Abnormal: Above high normal; Units: %; Status: F Test: LYMPH %; Value: 16.4; Range: 24.0-44.0; Abnormal: Below low normal; Units: %; Status: F Test: MONO %; Value: 7.7; Range: 0.0-5.0; Abnormal: Above high normal; Units: %; Status: F Test: EOS %; Value: 5.4; Range: 0.0-3.0; Abnormal: Above high normal; Units: %; Status: F Test: BASO %; Value: 0.6; Range: 0.0-1.0; Units: %; Status: F Test: LARGE UNSTAINED CELL %; Value: 3.9; Range: 0.0-4.0; Units: %; Status: F Test: NEUTROPHILS #; Value: 6.7; Range: 1.8-7.7; Units: K/mm3; Status: F Test: LYMPH #; Value: 1.7; Range: 1.5-4.5; Units: K/mm3; Status: F Test: MONO #; Value: 0.8; Range: 0.0-0.8; Units: K/mm3; Status: F Test: EOS #; Value: 0.5; Range: 0.0-0.50; Units: K/mm3; Status: F Test: BASO #; Value: 0.1; Range: 0.0-0.2; Units: K/mm3; Status: F Test: LARGE UNSTAINED CELL #; Value: 0.4; Range: 0.0-0.4; Units: K/mm3; Status: F Lab Order: [facility]; SPEC'M 07/27/16 17:21 Test: GLUCOSE, FASTING; Value: 95; Range: 83-110; Units: MG/DL; Status: F Test: BLOOD UREA NITROGEN; Value: 46; Range: 7-18; Abnormal: Above high normal; Units: MG/DL; Status: F Test: CREATININE FOR GFR; Value: 1.53; Range: 0.55-1.02; Abnormal: Above high normal; Units: MG/DL; Status: F Test: GLOMERULAR FILTRATION RATE; Value: 34.3; Range: >32; Status: F Test: SODIUM LEVEL; Value: 142; Range: 136-145; Units: MEQ/L; Status: F Test: POTASSIUM SERUM; Value: 3.2; Range: 3.5-5.1; Abnormal: Below low normal; Units: MEQ/L; Status: F Test: CHLORIDE LEVEL; Value: 98; Range: 98-107; Units: MEQ/L; Status: F Test: CARBON DIOXIDE LEVEL; Value: 36; Range: 21-32; Abnormal: Above high normal; Units: MEQ/L; Status: F Test: ANION GAP; Value: 8; Range: 8-16; Units: MEQ/L; Status: F Test: CALCIUM LEVEL; Value: 13.3; Range: 8.8-10.2; Abnormal: Above high normal; Units: MG/DL; Status: F Test Note: ; Units are mL/min/1.73 m2 Chronic Kidney Disease Staging per NKF: Stage I & II GFR >=60 Normal to Mildly Decreased Stage III GFR 30-59 Moderately Decreased Stage IV GFR 15-29 Severely Decreased Stage V GFR <15 Very Little GFR Left ESRD GFR <15 on MILK PICKUP DRIVER Lab Order: THYROID PROFILE; [facility] 07/27/16 20:59 Test: T UPTAKE; Value: 41; Range: 30-39; Abnormal: Above high normal; Units: %; Status: F Test: THYROXINE (T4); Value: 9.1; Range: 4.5-12.0; Units: UG/DL; Status: F Test: FREE THYROXINE INDEX; Value: 3.7; Range: 1.3-4.8; Units: %; Status: F Test: THYROID STIMULATING HORMONE; Value: 1.720; Range: 0.358-3.740; Units: uIU/ML; Status: F Lab Order: VITAMIN D, 25-HYDROXY; [facility] 07/27/16 20:59 Test: TOTAL 25(OH) VITAMIN D; Value: 53.5; Range: 30.0-100.0; Units: NG/ML; Status: F Test Note: ; Total 25(OH)Vitamin D Expected Values Deficiency <20 ng/ml Insufficiency 20-30 ng/ml Sufficiency 30-100 ng/ml Toxicity >100 ng/ml Lab Order: PTH INTACT; 07/27/16 20:59 Test: PTH INTACT; Value: < 6.3; Range: 14.0-72.0; Abnormal: Below low normal; Units: PG/ML; Status: F Lab Order: IONIZED CALCIUM; [facility]07/27/16 20:59 Test: IONIZED CALCIUM; Value: 6.1; Range: 4.5-5.3; Abnormal: Above high normal; Units: MG/DL; Status: F Lab Order: URINALYSIS; [facility] 07/27/16 21:38 Test: APPEARANCE, URINE; Value: CLEAR; Range: CLEAR; Status: F Test: COLOR, URINE; Value: YELLOW; Range: YELLOW; Status: F Test: PH,URINE; Value: 5.0; Range: 5.0-9.0; Units: UNITS; Status: F Test: SPECIFIC GRAVITY URINE AUTO; Value: 1.013; Range: 1.002-1.035; Status: F Test: PROTEIN, URINE AUTO; Value: NEGATIVE; Range: NEGATIVE; Units: mg/dL; Status: F Test: GLUCOSE, URINE (UA) AUTO; Value: NEGATIVE; Range: NEGATIVE; Units: mg/dL; Status: F Test: KETONE, URINE AUTO; Value: NEGATIVE; Range: NEGATIVE; Units: mg/dL; Status: F Test: UROBILINOGEN, URINE AUTO; Value: 0.2; Range: 0.0-2.0; Units: mg/dL; Status: F Test: BILIRUBIN, URINE AUTO; Value: NEGATIVE; Range: NEGATIVE; Status: F Test: NITRITE, URINE AUTO; Value: NEGATIVE; Range: NEGATIVE; Status: F Test: LEUKOCYTE ESTERASE, URINE AUTO; Value: 1+; Range: NEGATIVE; Abnormal: Above high normal; Status: F Test: BLOOD, URINE BLOOD; Value: NEGATIVE; Range: NEGATIVE; Status: F Test: WBC, URINE AUTO; Value: 15; Range: 0-3; Abnormal: Above high normal; Units: /HPF; Status: F Test: RBC, URINE AUTO; Value: 2; Range: 0-3; Units: /HPF; Status: F Test: BACTERIA, URINE AUTO; Value: 1+; Range: NEGATIVE; Abnormal: Above high normal; Status: F Test: SQUAMOUS EPITHELIAL CELL UR AU; Value: 1; Range: 0-6; Units: /HPF; Status: F Test: HYALINE CAST, URINE AUTO; Value: 19; Range: 0-1; Units: /LPF; Status: F Lab Order: OSMOLALITY,URINE; 07/27/16 21:38 Test: OSMOLALITY URINE; Value: 344; Range: 500-800; Abnormal: Below low normal; Units: MOSM/KG; Status: F Lab Order: CALCIUM,RANDOM URINE; 07/27/16 21:38 Test: CALCIUM,RANDOM URINE; Value: 17.3; Units: MG/DL; Status: F Lab Order: SODIUM,RANDOM URINE; 07/27/16 21:38 Test: SODIUM,RANDOM URINE; Value: 28; Units: MEQ/L; Status: F Lab Order: POTASSIUM,RANDOM URINE; 07/27/16 21:38 Test: POTASSIUM RANDOM URINE; Value: 30.7; Units: MEQ/L; Status: F Lab Order: SERUM PROTEIN ELECTROPHORESIS; 07/27/16 20:59 Test: ALBUMIN %; Range: 55.8-66.1; Units: %; Status: I Test: MQWQL-3-TQMAUARZ %; Range: 2.9-4.9; Units: %; Status: I Test: YBSUF-8-WYTIAZTLG %; Range: 7.1-11.8; Units: %; Status: I Test: QLXY-6-YPBWNWRVG %; Range: 4.7-7.2; Units: %; Status: I Test: AIDH-3-JNAIMWQXT %; Range: 3.2-6.5; Units: %; Status: I Test: GAMMA GLOBULIN %; Range: 11.1-18.8; Units: %; Status: I Test: ALBUMIN; Range: 3.29-5.55; Units: GM/DL; Status: I Test: WRGBL-7-MAGCBDFTU; Range: 0.17-0.41; Units: GM/DL; Status: I Test: OTAJZ-7-AGFKVPZDN; Range: 0.42-0.99; Units: GM/DL; Status: I Test: YFLE-5-MNNYUXWNW; Range: 0.28-0.60; Units: GM/DL; Status: I Test: QYQM-8-DLISGAIQZ; Range: 0.19-0.55; Units: GM/DL; Status: I Test: GAMMA GLOBULINS; Range: 0.65-1.58; Units: GM/DL; Status: I Test: TOTAL PROTEIN; Value: 6.5; Range: 6.4-8.2; Units: GM/DL; Status: F Test: SPEP INTERPRETATION; Status: I Lab Order: URINE PROTEIN ELECTROPHORESIS; SPEC07/27/16 21:38 Test: URINE VOLUME; Units: ML; Status: I Test: URINE TOTAL PROTEIN; Value: 15.2; Range: 0-12; Abnormal: Above high normal; Units: MG/DL; Status: F Test: UPEP INTERPRETATION; Status: I Lab Order: TOTAL PROTEIN,RANDOM URINE; 07/27/16 21:38 Test: TOTAL PROTEIN,RANDOM URINE; Value: 15.2; Range: 0.0-12.0; Abnormal: Above high normal; Units: MG/DL; Status: F Lab Order: CREATININE,RANDOM URINE; SPEC07/27/16 21:38 Test: CREATININE,RANDOM URINE; Value: 68.3; Units: MG/DL; Status: F Lab Order: COMPLETE BLOOD COUNT; [facility] 07/28/16 07:18 Test: WHITE BLOOD COUNT; Value: 8.8; Range: 4.0-10.0; Units: K/mm3; Status: F Test: RED BLOOD COUNT; Value: 4.34; Range: 4.00-5.40; Units: M/mm3; Status: F Test: HEMOGLOBIN; Value: 13.7; Range: 12.0-16.0; Units: g/dl; Status: F Test: HEMATOCRIT; Value: 41.5; Range: 36.0-47.0; Units: %; Status: F Test: MEAN CORPUSCULAR VOLUME; Value: 95.7; Range: 80.0-96.0; Units: fl; Status: F Test: MEAN CORPUSCULAR HEMOGLOBIN; Value: 31.7; Range: 27.0-33.0; Units: pg; Status: F Test: MEAN CORPUSCULAR HGB CONC; Value: 33.1; Range: 32.0-36.5; Units: g/dl; Status: F Test: RED CELL DISTRIBUTION WIDTH; Value: 12.6; Range: 11.5-14.5; Units: %; Status: F Test: PLATELET COUNT, AUTOMATED; Value: 373; Range: 150-450; Units: k/mm3; Status: F Lab Order: BASIC METABOLIC PROFILE; [facility] 07/28/16 07:18 Test: GLUCOSE, FASTING; Value: 84; Range: 83-110; Units: MG/DL; Status: F Test: BLOOD UREA NITROGEN; Value: 37; Range: 7-18; Abnormal: Above high normal; Units: MG/DL; Status: F Test: CREATININE FOR GFR; Value: 1.27; Range: 0.55-1.02; Abnormal: Above high normal; Units: MG/DL; Status: F Test: SODIUM LEVEL; Range: 136-145; Units: MEQ/L; Status: I Test: POTASSIUM SERUM; Range: 3.5-5.1; Units: MEQ/L; Status: I Test: CHLORIDE LEVEL; Range: 98-107; Units: MEQ/L; Status: I Test: CARBON DIOXIDE LEVEL; Range: 21-32; Units: MEQ/L; Status: I Test: ANION GAP; Range: 8-16; Units: MEQ/L; Status: I Test: CALCIUM LEVEL; Range: 8.8-10.2; Units: MG/DL; Status: I Test: GLOMERULAR FILTRATION RATE; Value: 42.5; Range: >32; Status: F Test: SODIUM LEVEL; Value: 148; Range: 136-145; Abnormal: Above high normal; Units: MEQ/L; Status: F Test: POTASSIUM SERUM; Value: 4.2; Range: 3.5-5.1; Abnormal: Delta; Units: MEQ/L; Status: F Test: CHLORIDE LEVEL; Value: 109; Range: 98-107; Abnormal: Above high normal; Units: MEQ/L; Status: F Test: CARBON DIOXIDE LEVEL; Value: 32; Range: 21-32; Units: MEQ/L; Status: F Test: ANION GAP; Value: 7; Range: 8-16; Abnormal: Below low normal; Units: MEQ/L; Status: F Test: CALCIUM LEVEL; Value: 11.6; Range: 8.8-10.2; Abnormal: Above high normal; Units: MG/DL; Status: F Test Note: ; Units are mL/min/1.73 m2 Chronic Kidney Disease Staging per NKF: Stage I & II GFR >=60 Normal to Mildly Decreased Stage III GFR 30-59 Moderately Decreased Stage IV GFR 15-29 Severely Decreased Stage V GFR <15 Very Little GFR Left ESRD GFR <15 on MILK PICKUP DRIVER Lab Order: IONIZED CALCIUM; SPEC'M 07/28/16 07:18 Test: IONIZED CALCIUM; Value: 5.9; Range: 4.5-5.3; Abnormal: Above high normal; Units: MG/DL; Status: F Lab Order: MAGNESIUM LEVEL; SPEC'M 07/28/16 07:18 Test: MAGNESIUM LEVEL; Value: 2.1; Range: 1.8-2.4; Units: MG/DL; Status: F Radiology Order: Chest, 1 View Test: Chest, 1 View REASON FOR EXAMINATION: Shortness of Breath; CHEST, ONE VIEW:; ; HISTORY: Shortness of breath.; ; COMPARISON: 07/16/2016; ; A minimal increase in interstitial markings is present in the lungs. The heart is; upper limits of normal in size. The pulmonary vasculature is prominent.; ; IMPRESSION: There is a minimal increase in interstitial markings in the lungs.; This may represent interstitial edema or pneumonia.; ; ; Signed by; Kehinde Wills MD 07/27/2016 06:22 P; Radiology Order: Thyroid, ST head+neck US Test: Thyroid, ST head+neck US REASON FOR EXAMINATION: hypercalcemia; Clinical: Hypercalcemia.; ; Technique: Real-time bryant scale and color evaluation of the thyroid gland using; linear high frequency transducer.; ; Findings:; The patient gives a history of prior right thyroidectomy.; Residual right thyroid tissue measures 1.7 x 0.8 x 0.9 cm and includes 2.6 mm; hypoechoic mid pole lesion with mural calcification and 2.8 mm lower pole cystic; lesion with small amount of mural calcification. Left thyroid lobe measures 3.2 x; 1.9 x 1.9 cm and includes 1.2 cm upper pole isoechoic nodule along with 5 mm mid; pole nodule, 1.2 centimeter mid/lower pole and 6.2 mm lower pole cysts.; ; Impression:; 1. Residual right thyroid tissue with small hypoechoic lesions as noted above.; 2. Left lobe demonstrating 1.2 cm isoechoic nodule and 1.2 cm anechoic cyst.; ; ; Signed by; Chuy Pate MD 07/28/2016 07:51 A; Radiology Order: CT Chest without contrast Test: CT Chest without contrast REASON FOR EXAMINATION: r/o malignancy; CT study of the chest without contrast:; ; History: Question malignancy.; ; Comparison CT study is from March 12, 2016.; ; Findings: The previously noted left lobe thyroid hypodense lesion is not seen.; There are clips at the trachea. The patient appears to be status post right; thyroid lobectomy. There is no evidence of hilar or mediastinal lymphadenopathy.; No pleural or pericardial effusion is seen. No adrenal lesion is seen. There; are two intrarenal calculi in the left upper kidney. Vascular calcification is; noted in the aorta and its branches.; ; On lung window settings, there are emphysematous changes in the upper lobes; bilaterally. Mild bibasilar linear fibrosis is seen. No pulmonary mass lesion; or significant nodule is appreciated. No bony destructive lesion is seen. There; is a levoconvex curvature in the lower thoracic spine.; ; Impression:; ; Evidence of COPD. No evidence of lung mass, adenopathy or significant nodule.; ; ; ; ; Unreviewed; Outcome: 19:19 Decision to Hospitalize by Provider. br1 07/28 12:17 Patient left the ED. kcs Signatures: Dispatcher [employer] EDKavitha Mccracken RN RN kcs Jie Frost RN RN mcp Mirella Hernandez, Reg Reg Valdemar Mitchell MD MD br1 Marj Fernandez, OJ GAS PROVER ct3 Darya Zayas RN RN sls1 Ly, Stone hgl Ana Rosa Rich RN RN mk4 Angela OroscoRN RN Laura Benoit Megan,RN RN mv5 Chart Complete W[facility]
--- NOTE | 2016-07-30 13:18 | EDDOCDS ---
Physician Documentation [facility] Name: Ana Rosa Brooks Age: 85 yrs Sex: Female : 1930 Arrival Date: 07/27/2016 Time: 16:30 Bed Admit Hold Private MD: Ashley Sky Disposition: 07/27/16 19:19 Hospitalization ordered by Jaylin Connolly for Inpatient Admission. Preliminary diagnosis is Hypercalcemia. - Bed requested for PCU. - Status is Inpatient Admission. kcs - Condition is Stable. - Problem is new. - Symptoms are unchanged. Historical: - Allergies: Wasps; - Home Meds: 1. aspirin 81 mg Oral tab 1 tab once daily 2. bisoprolol-hydrochlorothiazide 10-6.25 mg oral tab 2 tab once daily 3. Calcium 600 + D3 600/400 units 2X/day daily 4. epi-pen 0.3mg/0.3ml 1 unit as directed 5. Fluitcasone Propionate susp 50 mcg/act 2 sprays each nostril daily daily 6. magnesium oxide 250 mg Oral tab daily 7. multivitamin Oral tab daily 8. Osteo Bi-Flex Triple Strength oral 1 tab daily 9. Proair HFA 108 mcg/act 2 puffs four times per day as needed as needed 10. ramipril 10 mg Oral cap 1 cap once daily 11. Prolia 60 mg/ml 2X/year 12. Refresh optive 0.5-0.9% 1 drop both eyes daily 13. Spiriva with HandiHaler 18 mcg Inhl CpDv once daily 14. Vitamin D3 1,000 unit oral tab daily - PMHx: Thyroid problem; paroxysmal Vtach; Hypertension; Asthma; Palpitations; - PSHx: Thyroid Surgery; ureter repair; Hysterectomy; Appendectomy; kidney stone removal; Hip Arthroplasty, Left; - Social history: No barriers to communication noted, The patient speaks fluent Surinamese, Speaks appropriately for age, Smoking status: Patient states former smoker of tobacco. - Family history: Not pertinent. - : The pt / caregiver states he / she is not on anticoagulants. Home medication list is obtained from the patient, Quibb import data. - Exposure Risk Screening:: None identified. Vital Signs: 07/27 16:35 BP 179 / 81; Pulse 79; Resp 18; Temp 97.1(O); Pulse Ox 99% on R/A; Weight 43.09 kg / 95 ct3 lbs (R); Height 5 ft. 0 in. (152.40 cm) (R); Pain 5/10; 17:24 BP 175 / 88 (auto/); mk4 17:25 Pulse 74 MON; Pulse Ox 93% ; mk4 17:39 BP 170 / 79 (auto/); mk4 17:39 Pulse 66 MON; Pulse Ox 91% ; mk4 17:54 BP 175 / 81 (auto/); mk4 17:54 Pulse 72 MON; Pulse Ox 90% ; mk4 18:09 BP 183 / 85 (auto/); mk4 18:09 Pulse 80 MON; Pulse Ox 91% ; mk4 18:24 BP 174 / 84 (auto/); mk4 18:24 Pulse 70 MON; Pulse Ox 91% ; mk4 18:39 BP 189 / 89 (auto/); mk4 18:39 Pulse 72 MON; Pulse Ox 92% ; mk4 18:54 BP 183 / 86 (auto/); mk4 18:54 Pulse 74 MON; Pulse Ox 90% ; mk4 19:39 BP 178 / 84 (auto/); mv5 19:39 Pulse 72 MON; Pulse Ox 90% ; mv5 19:54 BP 188 / 91 (auto/); mv5 19:54 Pulse 76 MON; Pulse Ox 91% ; mv5 20:39 BP 169 / 77 (auto/); mv5 20:39 Pulse 72 MON; Pulse Ox 89% ; mv5 20:54 BP 166 / 80 (auto/); mv5 20:54 Pulse 74 MON; Pulse Ox 89% ; mv5 21:09 BP 180 / 86 (auto/); mv5 21:09 Pulse 76 MON; Pulse Ox 90% ; mv5 16:35 Body Mass Index 18.55 (43.09 kg, 152.40 cm) ct3 MDM: 16:45 IV Saline Lock ordered. br1 16:45 CBC with Diff Ordered. EDMS 16:45 BMP Ordered. EDMS 17:11 Physician Specialist/Pulse Ox/q 30 min VS ordered. br1 17:11 NS 0.9% 1000 ml IV at 150 mL/hr continuous ordered. br1 17:12 ECG WITH READING ER PHYS+CARDIAG ordered. EDMS 17:46 Chest, 1 View Ordered. EDMS 18:02 CBC with Diff Reviewed. br1 18:02 BMP Reviewed. br1 18:02 Potassium Chloride Extended Release Tablet 40 mEq PO once ordered. br1 18:06 BED REQUEST+ADM ordered. EDMS 18:37 Financial registration complete. b 19:40 [facility] Payment Agreement was scanned into [employer] and attached to record. gjb 20:37 2 GRAM SODIUM DIET ordered. EDMS 20:37 THYROID PROFILE Ordered. EDMS 20:37 VITAMIN D, 25-HYDROXY Ordered. EDMS 20:37 PTH INTACT Ordered. EDMS 20:38 IONIZED CALCIUM Ordered. EDMS 20:38 URINALYSIS Ordered. EDMS 20:38 OSMOLALITY,URINE Ordered. EDMS 20:38 CALCIUM,RANDOM URINE Ordered. EDMS 20:38 SODIUM,RANDOM URINE Ordered. EDMS 20:38 POTASSIUM,RANDOM URINE Ordered. EDMS 20:38 SERUM PROTEIN ELECTROPHORESIS Ordered. EDMS 20:38 URINE PROTEIN ELECTROPHORESIS Ordered. EDMS 20:38 TOTAL PROTEIN,RANDOM URINE Ordered. EDMS 20:38 CREATININE,RANDOM URINE Ordered. EDMS 20:38 COMPLETE BLOOD COUNT Ordered. EDMS 20:38 BASIC METABOLIC PROFILE Ordered. EDMS 20:39 IONIZED CALCIUM Ordered. EDMS 20:40 PHYSICAL THERAPY EVAL ONLY ordered. EDMS 20:40 Thyroid, ST head+neck US Ordered. EDMS 21:15 Admission / Observation Status ordered. EDMS 22:16 MAGNESIUM LEVEL Ordered. EDMS 02/07 06:47 CT Chest without contrast Ordered. EDMS 06:47 CHLORIDE,RANDOM URINE Ordered. EDMS 07:07 PTH RELATED PEPTIDE Ordered. EDMS 07:07 VIT D 1,25 DIHYDROXY Ordered. EDMS 12:34 T-Sheet-- Draft Copy was scanned into [employer] and attached to record. gb 12:34 ECG/EKG was scanned into [employer] and attached to record. gb 12:35 Radiology Report was scanned into [employer] and attached to record. gb Administered Medications: 07/27 17:47 Drug: NS 0.9% 1000 ml [sodium chloride 0.9 % intravenous solution] Route: IV; Rate: 150 mk4 mL/hr; Site: left antecubital; 18:16 Drug: Potassium Chloride 40 mEq [potassium chloride ER 10 mEq tablet,extended release mk4 (4 tabs)] Route: PO; 19:23 Follow up: Response: No Adverse Reaction mv5 Signatures: Dispatcher [employer] Kavitha Alvarez RN RN Mirella Castanon, Reg Reg gb Valdemar Britton MD MD br1 Ana Rosa Rich RN RN mk4 Angela Orosco RN RN Laura Benoitb Katelynn Mustafa RN mv5 The chart was reviewed and I authenticate all verbal orders and agree with the evaluation and treatment provided.Corrections: (The following items were deleted from the chart) 22:16 21:14 MAGNESIUM LEVEL ordered. EDMS EDMS Attachments: 19:40 [facility] [place] Agreement [facility] 07/28 12:34 T-Sheet-- Draft Copy gb 12:34 ECG/EKG gb Chart Complete MTDD
[2016-07-30 14:12] LABS: VITAMIN D 1,25 DIHYDROXY 24.1 pg/mL (19.9-79.3)
--- NOTE | 2016-07-30 20:55 | DSES ---
DATE OF ADMISSION: 07/27/2016 DATE OF DISCHARGE: 07/30/2016 PRIMARY CARE PROVIDER: Ashley Martinez DISCHARGE DIAGNOSES: 1. Hypercalcemia. Work up in progress. 2. Acute kidney injury resolved. 3. Hypothyroid. 4. Hypertension. 5. Paroxysmal atrial fibrillation. 6. Nephrolithiasis with history of lithotripsy. 7. Asthma. DISCHARGE MEDICATIONS: - Albuterol 2 puffs inhalation four times a day as needed shortness of breath - aspirin 81 mg by mouth every day - bisoprolol 20 mg by mouth nightly - hydroxypropyl methylcellulose one drop both eyes twice a day - Epipen - Flonase two sprays daily - Lasix 40 mg by mouth twice a day - magnesium oxide 250 mg by mouth every daily - multivitamin 1 tablet by mouth daily - Osteo BiFlex one tablet by mouth at bed time - Prolia 60 mg subcutaneously as directed - Ramipril 10 mg by mouth daily - Spiriva one inhalation daily HOSPITAL COURSE: This is an 85-year-old female who was sent from her primary care physicians office for high calcium. Patient does have a history of hypercalcemia and a history of kidney stones, however she could not tell the cause of the hypercalcemia. She does have history of thyroid surgery in 1983. Patient was managed with IV fluids and Lasix with improvement of her calcium as well as improvement of her acute kidney injury. Patient's calcium vitamin D supplementations were stopped. Work up of her hypercalcemia was sent with PTH was found to be appropriately low. Patient's SPEP was negative for any monoclonal bands. 25-Hydroxy vitamin D level was 50, within normal limits. PTHrP 125 and hydroxy vitamin D levels and free light chain levels are still in progress and it should be followed up by primary care physician. At present patient's cause of hypercalcemia is still under investigation. On the day of discharge patient was functioning at her baseline with no complaints and discharged home in stable condition. ADDITIONAL DISCHARGE DIAGNOSES: 1. History of fibrocystic breast disease. 2. Osteoarthritis. 3. Ventricular tachycardia. 4. 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 Review of old records show patient to have a PTHrP level drawn in 2016 which was less than 0.74 which is normal. Patient also had SPEP in 2012 and 2016 which in 2012 showed normal pattern and 2016 there was a mini monoclonal band in the gamma region. The SPEP from this admission showed increased alpha-2 globulin fraction and could not rule out migrating monoclonal band, so patient will need a serum, urine immunotyping as an outpatient. Patients hypercalcemia could be related to exogenous intake of calcium vitamin D along with mild dehydration which caused the patient to become hypercalcemic. Patient has been instructed to refrain from taking any over the counter calcium or vitamin D supplementations. PHYSICAL EXAMINATION: Vital signs: Temperature 97.8, pulse 64, respiratory rate 16, blood pressure 176/74, pulse oximetry 95% on room air. GENERAL: Patient awake, alert, and oriented times three, sitting up in bed in no acute distress. HEENT: Normocephalic, atraumatic. Moist mucous membranes. Anicteric eyes. CHEST: Clear to auscultation. CARDIOVASCULAR: S1, S2 regular. ABDOMEN: Soft, non-tender, bowel sounds present. EXTREMITIES: No edema. LABORATORY DATA: WBC 9.5, hemoglobin 11.9, platelet 315, sodium 145, potassium 3.4, chloride 108, bicarbonate 26, BUN 21, creatinine 1, glucose 81, calcium 9.4, magnesium 1.9. Urinary protein electrophoresis result is pending. DISPOSITION: Patient is discharged home in stable condition. DISCHARGE INSTRUCTIONS: 1. Patient to follow up with primary care provider in one week. 2. Regular diet. 3. Activity as tolerated. 4. Patient instructed to refrain from taking any over the counter calcium of vitamin D supplementation.
[2016-07-31 00:09] LABS: FREE KAPPA LIGHT CHAINS SERUM 31.19 mg/L (3.30-19.40); FREE LAMBDA LIGHT CHAINS SERUM 28.65 mg/L (5.71-26.30); KAPPA/LAMBDA RATIO SERUM 1.09 (0.26-1.65)
[2016-08-02 08:06] LABS: PTH RELATED PEPTIDE < 1.1 pmol/L (.)
== END 2016-07-30 13:02 | disposition home health service (06) | DRG 641 ==
LOC: M ED 16:30 → M ED INP 21:10 → M PCU 07-28 12:06 → M MSPAV 07-29 11:19
PROVIDERS: ADMIT Hospitalist; ATTEND Internal Medicine Nephrology
DX: E83.52 Hypercalcemia (principal); N17.9 Acute kidney failure, unspecified; E87.6 Hypokalemia; I10 Essential (primary) hypertension; E03.9 Hypothyroidism, unspecified; I48.0 Paroxysmal atrial fibrillation; J45.909 Unspecified asthma, uncomplicated; Z79.82 Long term (current) use of aspirin; Z79.899 Other long term (current) drug therapy; M19.90 Unspecified osteoarthritis, unspecified site; Z86.73 Personal history of transient ischemic attack (TIA), and cerebral infarction without residual deficits; Z88.2 Allergy status to sulfonamides; Z91.030 Bee allergy status

== ENCOUNTER → 2016-08-05 | Outpatient (REF) | payer MEDICARE, OTHER ==
[~2016-08-05] MED LIST changes: +CALCTAB41 PO; +EPIP0.3I2 INJ; +FURO40TA2 PO; +REFR1DRO8 OU
== END ==
LOC: M LAB REF 12:27
PROVIDERS: ATTEND Internal Medicine
DX: N18.3 Chronic kidney disease, stage 3 (moderate) (principal); E83.52 Hypercalcemia

== ENCOUNTER → 2016-10-08 | Day surgery (SDC) | payer MEDICARE, OTHER ==
[~2016-10-08] VITALS: Ht 152.4 cm; Wt 43.5 kg
[~2016-10-08] MED LIST changes: +ACETYLCHOLINE OPHTH SOLN 1% 2ML As Ordered ONE; +BALANCED SALT IRRIGATION SOLUTION 500ML BAG (FOR OR EYE MACHINE) As Ordered ONE; +CEFUROXIME 1MG/0.1ML INTRACAMERAL INJ As Ordered ONE; +HEALON DUET (HEALON 10MG/ML 0.55ML & HEALON ENDOCOAT 30MG/ML 0.85ML) As Ordered ONE; +LIDOCAINE 0.75%/EPINEPHRINE 0.025% IN BSS 1ML SYR INTRACAMERAL (OR ONLY) As Ordered ONE; +MIDAZOLAM INJ 2 MG/2 ML VIAL (J2250) As Ordered ONE; +OFLOXACIN 0.3 % (OCUFLOX) OPTH SOL 5ML OS ONE; +PHENYLEPHRINE 2.5% OPHTH SOL 2ML OS ONE; +POVIDONE-IODINE 5% OPHTH PREP SOL 30ML As Ordered ONE; +PROPARACAINE 0.5% OPHTH SOL 15ML OS ONE; +SYMB80INH INH; +TOBRADEX OPHTH OINT 3.5 GM As Ordered ONE; +TROPICAMIDE 1% OPHTH SOLN 2 ML OS ONE; +fentaNYL 100 MCG/2 ML INJECTION (J3010) As Ordered ONE
[2016-10-08 09:00] VITALS: BP 177/80
--- NOTE | 2016-10-08 10:02 | RO ---
DATE OF PROCEDURE: 10/08/2016 PREOPERATIVE DIAGNOSIS: Visually significant nuclear sclerotic cataract left eye. POSTOPERATIVE DIAGNOSIS: Visually significant nuclear sclerotic cataract left eye. PROCEDURE: Cataract extraction with use of phacoemulsification and placement of intraocular lens AU00T0, 20.0 diopter, left eye. SURGEON: Gus Scott DO CONTACT MANAGER: ANESTHESIA: Local with monitored anesthesia care (MAC). COMPLICATIONS: None. POSTOPERATIVE CONDITION: Stable. INDICATION FOR SURGERY: Blurred vision left eye affecting patient's activities of daily living. DESCRIPTION OF PROCEDURE: The patient was seen in the preoperative area and properly identified. The correct operative eye was identified and marked. Attention was turned to that eye. The patient received topical antibiotics in the preoperative area. The patient then received topical dilating drops consisting of tropicamide and phenylephrine. The patient was then transferred to the operating room. The correct side was reidentified. The patient received topical anesthetics and antibiotics on the surface of the eye. The eye was prepped and draped in a sterile fashion. The upper and lower eyelids were isolated with Tegaderm tape, and the lids were held open with an adjustable speculum. Using a sideport blade, a paracentesis incision was made. Intraocular preservative-free lidocaine was then injected into the anterior chamber. Viscoelastic was then injected into the anterior chamber through the paracentesis. Using a 2.65 mm sharp-tipped keratome, the anterior chamber was entered via a temporal clear corneal incision. A continuous curvilinear capsulorrhexis was created with the aid of a 26-gauge cystotome and Utrata forceps. Hydrodissection was performed with balanced salt solution (BSS) on a blunt cannula until the nucleus was freely mobile. The crystalline lens was phacoemulsified and aspirated. Additional cohesive viscoelastic was placed into the capsular bag to deepen it. A AU00T0, 20.0 diopter lens was placed into the capsular bag and confirmed by visualizing the continuous curvilinear capsulorrhexis. Additional irrigation and aspiration was used to remove cortical material and remaining viscoelastic. The clear corneal incision was hydrated with BSS on a blunt cannula. The lens was well positioned. The incisions were then tested for leaks and found to be negative. The eye was then palpated for appropriate pressure and adjusted accordingly with BSS. The eyelid speculum was then carefully removed. Tobradex ointment was placed in the eye. An eye patch and shield were then secured over the eye. The patient tolerated the procedure well and was discharged to the recovery unit in a stable condition. WILBERT
== END | disposition home or self-care (01) ==
LOC: M SDC 06:27
PROVIDERS: ATTEND Ophthalmology
DX: H25.12 Age-related nuclear cataract, left eye (principal); J44.9 Chronic obstructive pulmonary disease, unspecified; I10 Essential (primary) hypertension; I50.9 Heart failure, unspecified; Z87.891 Personal history of nicotine dependence; Z79.899 Other long term (current) drug therapy; Z79.82 Long term (current) use of aspirin
CPT/HCPCS: 66984; J2250; J3010; V2632

== ENCOUNTER → 2016-10-23 | Outpatient (REF) | payer MEDICARE, OTHER ==
[~2016-10-23] MED LIST changes: -ACETYLCHOLINE OPHTH SOLN 1% 2ML As Ordered ONE; -BALANCED SALT IRRIGATION SOLUTION 500ML BAG (FOR OR EYE MACHINE) As Ordered ONE; -CEFUROXIME 1MG/0.1ML INTRACAMERAL INJ As Ordered ONE; -HEALON DUET (HEALON 10MG/ML 0.55ML & HEALON ENDOCOAT 30MG/ML 0.85ML) As Ordered ONE; -LIDOCAINE 0.75%/EPINEPHRINE 0.025% IN BSS 1ML SYR INTRACAMERAL (OR ONLY) As Ordered ONE; -MIDAZOLAM INJ 2 MG/2 ML VIAL (J2250) As Ordered ONE; -OFLOXACIN 0.3 % (OCUFLOX) OPTH SOL 5ML OS ONE; -PHENYLEPHRINE 2.5% OPHTH SOL 2ML OS ONE; -POVIDONE-IODINE 5% OPHTH PREP SOL 30ML As Ordered ONE; -PROPARACAINE 0.5% OPHTH SOL 15ML OS ONE; -TOBRADEX OPHTH OINT 3.5 GM As Ordered ONE; -TROPICAMIDE 1% OPHTH SOLN 2 ML OS ONE; -fentaNYL 100 MCG/2 ML INJECTION (J3010) As Ordered ONE
[2016-10-23 16:03] LABS: CALCIUM LEVEL 9.9 MG/DL (8.8-10.2)
== END ==
LOC: M LABDRAW1 15:34
PROVIDERS: ATTEND Physician Assistant Medical
DX: M81.0 Age-related osteoporosis without current pathological fracture (principal); E55.9 Vitamin D deficiency, unspecified

== ENCOUNTER → 2016-11-05 | Day surgery (SDC) | payer MEDICARE, OTHER ==
[~2016-11-05] VITALS: Ht 152.4 cm; Wt 44.0 kg
[~2016-11-05] MED LIST changes: +ACETAMINOPHEN TAB 650MG DOSE (2X325MG) PO PRN; +ACETYLCHOLINE OPHTH SOLN 1% 2ML (MIOCHOL-E) As Ordered ONE; +BALANCED SALT IRRIGATION SOLUTION 500ML BAG (FOR OR EYE MACHINE) As Ordered ONE; +D5W/0.2% SODIUM CHLORIDE 1,000 ML IV SCH; +D5W/0.2% SODIUM CHLORIDE 250 ML IV ONE; +HEALON DUET (HEALON 10MG/ML 0.55ML & HEALON ENDOCOAT 30MG/ML 0.85ML) As Ordered ONE; +LIDOCAINE 0.75%/EPINEPHRINE 0.025% IN BSS 1ML SYR INTRACAMERAL (OR ONLY) As Ordered ONE; +LIDOCAINE 4% INJ 5 ML AMP As Ordered ONE; +MIDAZOLAM INJ 2 MG/2 ML VIAL (J2250) As Ordered ONE; +OFLOXACIN 0.3 % (OCUFLOX) OPTH SOL 5ML OD ONE; +ONDANSETRON 4MG/2ML VIAL (J2405) IV PRN; +PHENYLEPHRINE 2.5% OPHTH SOL 2ML OD ONE; +POVIDONE-IODINE 5% OPHTH PREP SOL 30ML As Ordered ONE; +PROPARACAINE 0.5% OPHTH SOL 15ML OD ONE; +TOBRADEX OPHTH OINT 3.5 GM As Ordered ONE; +TROPICAMIDE 1% OPHTH SOLN 2ML OD ONE; +fentaNYL 100 MCG/2 ML INJECTION (J3010) As Ordered ONE
[2016-11-05 10:25] VITALS: BP 193/87
--- NOTE | 2016-11-09 10:58 | RO ---
DATE OF PROCEDURE: 11/05/2016 PREOPERATIVE DIAGNOSIS: Visually significant nuclear sclerotic cataract right eye. POSTOPERATIVE DIAGNOSIS: Visually significant nuclear sclerotic cataract right eye. PROCEDURE: Cataract extraction with use of phacoemulsification and placement of intraocular lens Kraig AU00T0, 20.0 diopter , right eye. SURGEON: Gus Scott DO METAL FILER: ANESTHESIA: Local with monitored anesthesia care (MAC). COMPLICATIONS: None. POSTOPERATIVE CONDITION: Stable. INDICATION FOR SURGERY: Blurred vision right eye affecting patient's activities of daily living. DESCRIPTION OF PROCEDURE: The patient was seen in the preoperative area and properly identified. The correct operative eye was identified and marked. Attention was turned to that eye. The patient received topical antibiotics in the preoperative area. The patient then received topical dilating drops consisting of tropicamide and phenylephrine. The patient was then transferred to the operating room. The correct side was reidentified. The patient received topical anesthetics and antibiotics on the surface of the eye. The eye was prepped and draped in a sterile fashion. The upper and lower eyelids were isolated with Tegaderm tape, and the lids were held open with an adjustable speculum. Using a sideport blade, a paracentesis incision was made. Intraocular preservative-free lidocaine was then injected into the anterior chamber. Viscoelastic was then injected into the anterior chamber through the paracentesis. Using a 2.65 mm sharp-tipped keratome, the anterior chamber was entered via a temporal clear corneal incision. A continuous curvilinear capsulorrhexis was created with the aid of a 26-gauge cystotome and Utrata forceps. Hydrodissection was performed with balanced salt solution (BSS) on a blunt cannula until the nucleus was freely mobile. The crystalline lens was phacoemulsified and aspirated. Additional cohesive viscoelastic was placed into the capsular bag to deepen it. AU00T0, 20.0 diopter lens was placed into the capsular bag and confirmed by visualizing the continuous curvilinear capsulorrhexis. Additional irrigation and aspiration was used to remove cortical material and remaining viscoelastic. The clear corneal incision was hydrated with BSS on a blunt cannula. The lens was well positioned. The incisions were then tested for leaks and found to be negative. The eye was then palpated for appropriate pressure and adjusted accordingly with BSS. Several drops of antibiotics and Iopidine were placed in the eye. The eyelid speculum was then carefully removed. Maxitrol ointment was placed in the eye. An eye patch and shield were then secured over the eye. The patient tolerated the procedure well and was discharged to the recovery unit in a stable condition. After balanced salt solution was used to reinflate the anterior chamber and adjust the accordingly, ReSure sealant was placed on the temporal clear coronal incision, then additional balance salt solution was added until intraocular pressure was felt to be normal.
== END | disposition home or self-care (01) ==
LOC: M SDC 07:53
PROVIDERS: ATTEND Ophthalmology
DX: H25.11 Age-related nuclear cataract, right eye (principal); I50.9 Heart failure, unspecified; I10 Essential (primary) hypertension; E04.1 Nontoxic single thyroid nodule; Z87.891 Personal history of nicotine dependence; J44.9 Chronic obstructive pulmonary disease, unspecified; Z79.82 Long term (current) use of aspirin; Z79.899 Other long term (current) drug therapy
CPT/HCPCS: 66984; J2250; J3010; V2632

== ENCOUNTER → 2017-03-03 | Outpatient (REF) | payer MEDICARE, OTHER ==
[~2017-03-03] MED LIST changes: -ACETAMINOPHEN TAB 650MG DOSE (2X325MG) PO PRN; -ACETYLCHOLINE OPHTH SOLN 1% 2ML (MIOCHOL-E) As Ordered ONE; -BALANCED SALT IRRIGATION SOLUTION 500ML BAG (FOR OR EYE MACHINE) As Ordered ONE; -D5W/0.2% SODIUM CHLORIDE 1,000 ML IV SCH; -D5W/0.2% SODIUM CHLORIDE 250 ML IV ONE; +FLUT1SPR2; -HEALON DUET (HEALON 10MG/ML 0.55ML & HEALON ENDOCOAT 30MG/ML 0.85ML) As Ordered ONE; -LIDOCAINE 0.75%/EPINEPHRINE 0.025% IN BSS 1ML SYR INTRACAMERAL (OR ONLY) As Ordered ONE; -LIDOCAINE 4% INJ 5 ML AMP As Ordered ONE; -MIDAZOLAM INJ 2 MG/2 ML VIAL (J2250) As Ordered ONE; -OFLOXACIN 0.3 % (OCUFLOX) OPTH SOL 5ML OD ONE; -ONDANSETRON 4MG/2ML VIAL (J2405) IV PRN; -PHENYLEPHRINE 2.5% OPHTH SOL 2ML OD ONE; -POVIDONE-IODINE 5% OPHTH PREP SOL 30ML As Ordered ONE; -PROA1AER INH; +PROAAER10 INH; -PROPARACAINE 0.5% OPHTH SOL 15ML OD ONE; -TOBRADEX OPHTH OINT 3.5 GM As Ordered ONE; -TROPICAMIDE 1% OPHTH SOLN 2ML OD ONE; -fentaNYL 100 MCG/2 ML INJECTION (J3010) As Ordered ONE
== END ==
LOC: M LAB REF 12:43
PROVIDERS: ATTEND Internal Medicine
DX: R63.4 Abnormal weight loss (principal)

== ENCOUNTER → 2017-03-09 | Outpatient (CLI) | payer MEDICARE, OTHER ==
[~2017-03-09] MED LIST changes: +GASTROGRAFIN SOLUTION 30ML (Q9963) As Ordered ONE; +ISOVUE-370 76% 100ML VIAL (Q9967) As Ordered ONE
--- NOTE | 2017-03-09 12:29 | REP ---
CT of the abdomen pelvis without and with IV contrast and with bowel contrast: Comparisons 08/01/2004. The visualized lower lung krishnan reveal minor atelectasis in the right middle lobe and lingula but are otherwise unremarkable. The hepatic parenchyma is homogeneous and unremarkable on both phases of the study. The gallbladder, pancreas and spleen are normal size and unremarkable. The adrenals and kidneys are unremarkable except for a nonobstructive left renal calculus and parapelvic cyst in the right kidney. The abdominal aorta is unremarkable except for calcified atheroma. There is no bowel distension or obstruction. Pelvis: There is a large pelvic mass measuring 16 cm AP by 13 cm transversely by 6 cm craniocaudad. This could be a uterine, ovarian, bladder or bowel mass. There is no ascites. No adenopathy. The pelvic bowel loops are displaced by this mass but otherwise unremarkable. Impression: There is a huge pelvic mass as described. There is no adenopathy or ascites. No bowel distension or obstruction. Nonobstructive left renal calculus. Right renal cyst. Signed by Yinka Lewis MD 03/09/2017 12:20 P
== END ==
LOC: M RAD 09:18
PROVIDERS: ATTEND Internal Medicine
DX: K62.5 Hemorrhage of anus and rectum (principal); R63.4 Abnormal weight loss; R19.04 Left lower quadrant abdominal swelling, mass and lump; N20.0 Calculus of kidney; N28.1 Cyst of kidney, acquired
CPT/HCPCS: 74178; Q9963; Q9967

== ENCOUNTER → 2017-03-24 | Outpatient (CLI) | payer MEDICARE, OTHER ==
[~2017-03-24] MED LIST changes: -GASTROGRAFIN SOLUTION 30ML (Q9963) As Ordered ONE; -ISOVUE-370 76% 100ML VIAL (Q9967) As Ordered ONE; +LIDOCAINE 1% MDV 20ML VIAL As Ordered ONE
--- NOTE | 2017-03-24 16:10 | REP ---
CT GUIDED PELVIC MASS BIOPSY: The procedure was performed under the direct supervision of Dr. Genao. The patient has a history of large pelvic mass measuring 16 cm x 13 cm x 6 cm seen on a previous CT scan dated 03/09/2017. The risks and benefits of the procedure were explained to the patient and informed consent was obtained. The pelvic mass was localized using CT guidance. The skin was prepped and draped in a sterile fashion. 1% Xylocaine was used a local anesthetic. Using CT guidance a 19/20-gauge coaxial needle biopsy system was inserted and advanced into the mass. Five core biopsy samples were obtained and sent to the lab. The patient tolerated the procedure well and there were no immediate complications. After the appropriate amount of monitored convalescence the patient was discharged from the department. Reviewed by LUANA Rios 03/24/2017 04:48 PEdited and Signed by Golden Genao MD 03/25/2017 05:18 P
== END ==
LOC: M RADPRO 07:59
PROVIDERS: ATTEND Internal Medicine Gastroenterology
DX: R93.3 Abnormal findings on diagnostic imaging of other parts of digestive tract (principal); R63.4 Abnormal weight loss; K62.5 Hemorrhage of anus and rectum; Z87.891 Personal history of nicotine dependence; Z88.2 Allergy status to sulfonamides; Z91.030 Bee allergy status; Z79.899 Other long term (current) drug therapy

== ENCOUNTER → 2017-04-12 | Outpatient (REF) | payer MEDICARE, OTHER ==
[~2017-04-12] MED LIST changes: -LIDOCAINE 1% MDV 20ML VIAL As Ordered ONE
[2017-04-13 10:33] LABS: CA 125 74.5 U/ML (<30.2)
== END ==
LOC: M LAB REF 16:09
PROVIDERS: ATTEND Internal Medicine
DX: R19.00 Intra-abdominal and pelvic swelling, mass and lump, unspecified site (principal); D25.9 Leiomyoma of uterus, unspecified

== ENCOUNTER → 2017-04-30 | Outpatient (REF) | payer MEDICARE, OTHER | LOC: M LABDRAW1 11:20 | PROVIDERS: ATTEND Internal Medicine Endocrinology, Diabetes & Metabolism | DX: E55.9 Vitamin D deficiency, unspecified (principal) ==

== ENCOUNTER 2017-06-11 17:17 | Inpatient (IN) | payer MEDICARE, OTHER ==
[2017-06-11 19:28] LABS: BASO % 0.3 % (0.0-1.0); EOS % 0.3 % (0.0-3.0); HEMATOCRIT 23.2 % (36.0-47.0); HEMOGLOBIN 7.4 g/dl (12.0-16.0); IMMATURE GRANULOCYTE # 0.1 10^3/uL (0-0); IMMATURE GRANULOCYTE % 0.8 % (0-0); LYMPH # 1.7 10^3/uL (1.5-4.5); LYMPH % 12.1 % (24.0-44.0); MEAN CORPUSCULAR HEMOGLOBIN 30.7 pg (27.0-33.0); MEAN CORPUSCULAR HGB CONC 31.9 g/dl (32.0-36.5); MEAN CORPUSCULAR VOLUME 96.3 fl (80.0-96.0); MONO # 1.4 10^3/uL (0.0-0.8); MONO % 9.9 % (0.0-5.0); NEUTROPHILS % 76.6 % (36.0-66.0); PLATELET COUNT, AUTOMATED 384 10^3/uL (150-450); RED BLOOD COUNT 2.41 10^6/uL (4.00-5.40); RED CELL DISTRIBUTION WIDTH 15.3 % (11.5-14.5); WHITE BLOOD COUNT 14.3 10^3/uL (4.0-10.0)
[2017-06-11 20:18] LABS: ANION GAP 9 MEQ/L (8-16); BLOOD UREA NITROGEN 72 MG/DL (7-18); CALCIUM LEVEL 8.7 MG/DL (8.8-10.2); CARBON DIOXIDE LEVEL 29 MEQ/L (21-32); CHLORIDE LEVEL 107 MEQ/L (98-107); CPK CREATINE PHOSPHOKINASE 68 U/L (26-192); CREATININE FOR GFR 1.14 MG/DL (0.55-1.02); GLUCOSE, FASTING 100 MG/DL (83-110); POTASSIUM SERUM 4.4 MEQ/L (3.5-5.1); SODIUM LEVEL 145 MEQ/L (136-145); TROPONIN I 0.07 NG/ML (< 0.10)
[2017-06-11 20:19] LABS: CK-MB VALUE MASS 1.9 NG/ML (0.0-3.6); MB/CK RELATIVE INDEX 2.79 (< OR =4)
[2017-06-11] MEDS: GASTROGRAFIN SOLUTION 30ML (Q9963) PO (20:50)
[2017-06-11] MEDS: GASTROGRAFIN SOLUTION 30ML PO (21:13)
[2017-06-11] MEDS ORDERED: ONDANSETRON 4MG/2ML VIAL (J2405) IV (21:15)
[2017-06-11 22:01] LABS: FERRITIN 42 NG/ML (8-252); IRON (FE) 23 UG/DL (50-170); PERCENT SATURATION 6.9 % (13.2-45.0); TOTAL IRON BINDING CAPACITY 332 UG/DL (250-450)
[2017-06-11 22:10] LABS: VITAMIN B12 LEVEL 516 PG/ML (247-911)
[2017-06-11] MEDS ORDERED: ISOVUE-370 76% 100ML VIAL (Q9967) As Ordered (22:17)
[2017-06-11] MEDS: RAMIPRIL 5 MG CAP PO (23:45)
[2017-06-12] MEDS: VANCOMYCIN ORAL SOL 250MG/5ML ORAL SYRINGE PO ×5 (03:08→23:44)
[2017-06-12 03:52] LABS: IMMEDIATE SPIN CROSSMATCH 1 3
[2017-06-12 06:27] LABS: BASO # 0.1 10^3/uL (0.0-0.2); BASO % 0.6 % (0.0-1.0); EOS # 0.2 10^3/uL (0.0-0.50); EOS % 1.6 % (0.0-3.0); HEMATOCRIT 35.3 % (36.0-47.0); IMMATURE GRANULOCYTE # 0.1 10^3/uL (0-0); IMMATURE GRANULOCYTE % 0.9 % (0-0); LYMPH # 1.6 10^3/uL (1.5-4.5); MEAN CORPUSCULAR HEMOGLOBIN 29.4 pg (27.0-33.0); MEAN CORPUSCULAR HGB CONC 33.7 g/dl (32.0-36.5); MEAN CORPUSCULAR VOLUME 87.2 fl (80.0-96.0); MONO # 1.6 10^3/uL (0.0-0.8); MONO % 10.8 % (0.0-5.0); NEUTROPHILS # 10.9 10^3/uL (1.8-7.7); NEUTROPHILS % 75.1 % (36.0-66.0); PLATELET COUNT, AUTOMATED 294 10^3/uL (150-450); RED BLOOD COUNT 4.05 10^6/uL (4.00-5.40); RED CELL DISTRIBUTION WIDTH 15.1 % (11.5-14.5); WHITE BLOOD COUNT 14.5 10^3/uL (4.0-10.0)
[2017-06-12 06:33] LABS: HEMOGLOBIN 11.9 g/dl (12.0-16.0)
[2017-06-12 06:45] LABS: ANION GAP 8 MEQ/L (8-16); BLOOD UREA NITROGEN 58 MG/DL (7-18); CALCIUM LEVEL 8.3 MG/DL (8.8-10.2); CARBON DIOXIDE LEVEL 26 MEQ/L (21-32); CHLORIDE LEVEL 109 MEQ/L (98-107); CREATININE FOR GFR 0.97 MG/DL (0.55-1.02); GLOMERULAR FILTRATION RATE 57.8 (>32); GLUCOSE, FASTING 93 MG/DL (83-110); POTASSIUM SERUM 4.2 MEQ/L (3.5-5.1); SODIUM LEVEL 143 MEQ/L (136-145)
[2017-06-12] MEDS: SYMBICORT 80/4.5MCG INHALER 6GM INH ×2 (07:24→21:00)
[2017-06-12] MEDS: TIOTROPIUM INHALER/CAPSULE (SPIRIVA) INH (07:24)
[2017-06-12] MEDS: ALBUTEROL SULFATE 2.5 MG/0.5 ML INH NEB SOLN NEB ×4 (08:00→23:28)
[2017-06-12] MEDS: FUROSEMIDE 20 MG TAB PO ×2 (08:25→17:00)
[2017-06-12] MEDS: MAGNESIUM OXIDE 400 MG TAB (MAG-OX) PO (08:25)
[2017-06-12] MEDS: RAMIPRIL 5 MG CAP PO (20:11)
[2017-06-13] MEDS: VANCOMYCIN ORAL SOL 250MG/5ML ORAL SYRINGE PO ×4 (05:20→23:32)
[2017-06-13 06:02] LABS: BASO # 0.1 10^3/uL (0.0-0.2); BASO % 0.4 % (0.0-1.0); EOS # 0.3 10^3/uL (0.0-0.50); EOS % 1.5 % (0.0-3.0); HEMATOCRIT 33.6 % (36.0-47.0); HEMOGLOBIN 11.3 g/dl (12.0-16.0); IMMATURE GRANULOCYTE # 0.2 10^3/uL (0-0); IMMATURE GRANULOCYTE % 0.9 % (0-0); LYMPH # 1.3 10^3/uL (1.5-4.5); LYMPH % 7.5 % (24.0-44.0); MEAN CORPUSCULAR HEMOGLOBIN 29.8 pg (27.0-33.0); MEAN CORPUSCULAR HGB CONC 33.6 g/dl (32.0-36.5); MEAN CORPUSCULAR VOLUME 88.7 fl (80.0-96.0); MONO # 1.9 10^3/uL (0.0-0.8); MONO % 11.1 % (0.0-5.0); NEUTROPHILS # 13.3 10^3/uL (1.8-7.7); NEUTROPHILS % 78.6 % (36.0-66.0); PLATELET COUNT, AUTOMATED 276 10^3/uL (150-450); RED BLOOD COUNT 3.79 10^6/uL (4.00-5.40); RED CELL DISTRIBUTION WIDTH 16.3 % (11.5-14.5)
[2017-06-13 06:09] LABS: ANION GAP 8 MEQ/L (8-16); BLOOD UREA NITROGEN 52 MG/DL (7-18); CALCIUM LEVEL 8.2 MG/DL (8.8-10.2); CARBON DIOXIDE LEVEL 28 MEQ/L (21-32); CHLORIDE LEVEL 109 MEQ/L (98-107); GLOMERULAR FILTRATION RATE 41.2 (>32); GLUCOSE, FASTING 102 MG/DL (83-110); POTASSIUM SERUM 3.4 MEQ/L (3.5-5.1); SODIUM LEVEL 145 MEQ/L (136-145)
[2017-06-13] MEDS: ALBUTEROL SULFATE 2.5 MG/0.5 ML INH NEB SOLN NEB ×2 (08:00→15:30)
[2017-06-13] MEDS: SYMBICORT 80/4.5MCG INHALER 6GM INH ×2 (08:14→21:00)
[2017-06-13] MEDS: TIOTROPIUM INHALER/CAPSULE (SPIRIVA) INH (08:15)
[2017-06-13] MEDS: FUROSEMIDE 20 MG TAB PO (10:33)
[2017-06-13] MEDS: MAGNESIUM OXIDE 400 MG TAB (MAG-OX) PO (10:34)
[2017-06-13] MEDS: POTASSIUM CHLORIDE 10 MEQ SR TABLET PO (16:41)
[2017-06-13] MEDS: KCL 40MEQ IN D5/0.45NS 1000ML 1,000 ML IV (16:41)
[2017-06-13] MEDS: RAMIPRIL 5 MG CAP PO (20:37)
[2017-06-14] MEDS: VANCOMYCIN ORAL SOL 250MG/5ML ORAL SYRINGE PO ×4 (05:21→23:57)
[2017-06-14 06:31] LABS: BASO # 0.1 10^3/uL (0.0-0.2); BASO % 0.5 % (0.0-1.0); EOS # 0.3 10^3/uL (0.0-0.50); EOS % 2.2 % (0.0-3.0); HEMATOCRIT 33.2 % (36.0-47.0); HEMOGLOBIN 10.9 g/dl (12.0-16.0); IMMATURE GRANULOCYTE # 0.1 10^3/uL (0-0); IMMATURE GRANULOCYTE % 0.9 % (0-0); LYMPH # 1.3 10^3/uL (1.5-4.5); LYMPH % 9.9 % (24.0-44.0); MEAN CORPUSCULAR HEMOGLOBIN 29.9 pg (27.0-33.0); MEAN CORPUSCULAR HGB CONC 32.8 g/dl (32.0-36.5); MONO # 1.6 10^3/uL (0.0-0.8); MONO % 11.9 % (0.0-5.0); NEUTROPHILS % 74.6 % (36.0-66.0); PLATELET COUNT, AUTOMATED 266 10^3/uL (150-450); RED BLOOD COUNT 3.65 10^6/uL (4.00-5.40); WHITE BLOOD COUNT 13.4 10^3/uL (4.0-10.0)
[2017-06-14 06:57] LABS: ANION GAP 8 MEQ/L (8-16); BLOOD UREA NITROGEN 33 MG/DL (7-18); CALCIUM LEVEL 7.6 MG/DL (8.8-10.2); CARBON DIOXIDE LEVEL 27 MEQ/L (21-32); CHLORIDE LEVEL 111 MEQ/L (98-107); CREATININE FOR GFR 1.03 MG/DL (0.55-1.02); GLUCOSE, FASTING 101 MG/DL (83-110); POTASSIUM SERUM 4.4 MEQ/L (3.5-5.1); SODIUM LEVEL 146 MEQ/L (136-145)
[2017-06-14] MEDS: SYMBICORT 80/4.5MCG INHALER 6GM INH ×2 (07:18→21:00)
[2017-06-14] MEDS: TIOTROPIUM INHALER/CAPSULE (SPIRIVA) INH (07:18)
[2017-06-14] MEDS: ALBUTEROL SULFATE 2.5 MG/0.5 ML INH NEB SOLN NEB ×4 (07:18→21:25)
[2017-06-14] MEDS: MAGNESIUM OXIDE 400 MG TAB (MAG-OX) PO (09:37)
[2017-06-14] MEDS: KCL 20MEQ IN D5W 1000ML 1,000 ML IV (12:31)
[2017-06-14] MEDS: RAMIPRIL 5 MG CAP PO (20:15)
[2017-06-15] MEDS: VANCOMYCIN ORAL SOL 250MG/5ML ORAL SYRINGE PO ×4 (05:05→23:10)
[2017-06-15 07:06] LABS: BASO # 0.1 10^3/uL (0.0-0.2); BASO % 0.6 % (0.0-1.0); EOS # 0.3 10^3/uL (0.0-0.50); EOS % 1.9 % (0.0-3.0); HEMATOCRIT 33.5 % (36.0-47.0); HEMOGLOBIN 10.8 g/dl (12.0-16.0); IMMATURE GRANULOCYTE # 0.2 10^3/uL (0-0); LYMPH # 1.1 10^3/uL (1.5-4.5); LYMPH % 7.6 % (24.0-44.0); MEAN CORPUSCULAR HEMOGLOBIN 29.5 pg (27.0-33.0); MEAN CORPUSCULAR HGB CONC 32.2 g/dl (32.0-36.5); MEAN CORPUSCULAR VOLUME 91.5 fl (80.0-96.0); MONO # 1.9 10^3/uL (0.0-0.8); MONO % 12.8 % (0.0-5.0); NEUTROPHILS % 76.1 % (36.0-66.0); PLATELET COUNT, AUTOMATED 282 10^3/uL (150-450); RED BLOOD COUNT 3.66 10^6/uL (4.00-5.40); RED CELL DISTRIBUTION WIDTH 15.7 % (11.5-14.5); WHITE BLOOD COUNT 14.4 10^3/uL (4.0-10.0)
[2017-06-15 07:31] LABS: ANION GAP 7 MEQ/L (8-16); BLOOD UREA NITROGEN 24 MG/DL (7-18); CARBON DIOXIDE LEVEL 26 MEQ/L (21-32); CHLORIDE LEVEL 110 MEQ/L (98-107); CREATININE FOR GFR 0.89 MG/DL (0.55-1.02); GLOMERULAR FILTRATION RATE > 60.0 (>32); GLUCOSE, FASTING 87 MG/DL (83-110); POTASSIUM SERUM 4.5 MEQ/L (3.5-5.1); SODIUM LEVEL 143 MEQ/L (136-145)
[2017-06-15] MEDS: ALBUTEROL SULFATE 2.5 MG/0.5 ML INH NEB SOLN NEB ×2 (08:00→16:34)
[2017-06-15] MEDS: SYMBICORT 80/4.5MCG INHALER 6GM INH ×2 (08:54→21:09)
[2017-06-15] MEDS: TIOTROPIUM INHALER/CAPSULE (SPIRIVA) INH (08:54)
[2017-06-15 09:26] LABS: FOLATE > 24.0 NG/ML (>5.4)
[2017-06-15] MEDS: MAGNESIUM OXIDE 400 MG TAB (MAG-OX) PO (09:26)
[2017-06-15] MEDS: ISOSORBIDE MON. (IMDUR) 30 MG XR TAB PO (11:40)
[2017-06-15] MEDS: **hydrALAZINE** 10 MG TAB PO ×2 (11:41→21:20)
[2017-06-16] MEDS: ALBUTEROL SULFATE 2.5 MG/0.5 ML INH NEB SOLN NEB ×4 (00:32→23:24)
[2017-06-16] MEDS: VANCOMYCIN ORAL SOL 250MG/5ML ORAL SYRINGE PO ×3 (05:44→16:59)
[2017-06-16 06:49] LABS: BASO # 0.1 10^3/uL (0.0-0.2); BASO % 0.7 % (0.0-1.0); EOS # 0.2 10^3/uL (0.0-0.50); EOS % 1.4 % (0.0-3.0); HEMATOCRIT 35.4 % (36.0-47.0); HEMOGLOBIN 11.2 g/dl (12.0-16.0); IMMATURE GRANULOCYTE # 0.2 10^3/uL (0-0); IMMATURE GRANULOCYTE % 1.5 % (0-0); LYMPH # 1.1 10^3/uL (1.5-4.5); LYMPH % 8.3 % (24.0-44.0); MEAN CORPUSCULAR HEMOGLOBIN 29.6 pg (27.0-33.0); MEAN CORPUSCULAR HGB CONC 31.6 g/dl (32.0-36.5); MEAN CORPUSCULAR VOLUME 93.7 fl (80.0-96.0); MONO # 1.7 10^3/uL (0.0-0.8); MONO % 12.5 % (0.0-5.0); NEUTROPHILS # 10.3 10^3/uL (1.8-7.7); NEUTROPHILS % 75.6 % (36.0-66.0); PLATELET COUNT, AUTOMATED 314 10^3/uL (150-450); RED BLOOD COUNT 3.78 10^6/uL (4.00-5.40); RED CELL DISTRIBUTION WIDTH 15.6 % (11.5-14.5); WHITE BLOOD COUNT 13.5 10^3/uL (4.0-10.0)
[2017-06-16 07:34] LABS: ANION GAP 7 MEQ/L (8-16); BLOOD UREA NITROGEN 25 MG/DL (7-18); CARBON DIOXIDE LEVEL 26 MEQ/L (21-32); CHLORIDE LEVEL 112 MEQ/L (98-107); CREATININE FOR GFR 1.03 MG/DL (0.55-1.02); GLUCOSE, FASTING 135 MG/DL (83-110); POTASSIUM SERUM 4.7 MEQ/L (3.5-5.1); SODIUM LEVEL 145 MEQ/L (136-145)
[2017-06-16] MEDS: SYMBICORT 80/4.5MCG INHALER 6GM INH ×2 (07:48→19:16)
[2017-06-16] MEDS: TIOTROPIUM INHALER/CAPSULE (SPIRIVA) INH (07:48)
[2017-06-16] MEDS: **hydrALAZINE** 10 MG TAB PO ×2 (09:00→22:39)
[2017-06-16] MEDS: ISOSORBIDE MON. (IMDUR) 30 MG XR TAB PO (09:00)
[2017-06-16] MEDS: MAGNESIUM OXIDE 400 MG TAB (MAG-OX) PO (09:01)
[2017-06-16] MEDS: NS 0.45% 1,000 ML IV (12:00)
[2017-06-17] MEDS: VANCOMYCIN ORAL SOL 250MG/5ML ORAL SYRINGE PO ×4 (00:47→17:29)
[2017-06-17] MEDS: NS 0.45% 1,000 ML IV ×2 (04:47→10:00)
[2017-06-17 07:08] LABS: BASO # 0.1 10^3/uL (0.0-0.2); BASO % 0.8 % (0.0-1.0); EOS # 0.3 10^3/uL (0.0-0.50); EOS % 2.2 % (0.0-3.0); HEMATOCRIT 35.5 % (36.0-47.0); HEMOGLOBIN 11.4 g/dl (12.0-16.0); IMMATURE GRANULOCYTE # 0.2 10^3/uL (0-0); IMMATURE GRANULOCYTE % 1.4 % (0-0); MEAN CORPUSCULAR HEMOGLOBIN 30.1 pg (27.0-33.0); MEAN CORPUSCULAR HGB CONC 32.1 g/dl (32.0-36.5); MEAN CORPUSCULAR VOLUME 93.7 fl (80.0-96.0); MONO # 1.6 10^3/uL (0.0-0.8); MONO % 11.1 % (0.0-5.0); NEUTROPHILS % 77.5 % (36.0-66.0); PLATELET COUNT, AUTOMATED 343 10^3/uL (150-450); RED BLOOD COUNT 3.79 10^6/uL (4.00-5.40); RED CELL DISTRIBUTION WIDTH 15.3 % (11.5-14.5); WHITE BLOOD COUNT 14.3 10^3/uL (4.0-10.0)
[2017-06-17 07:31] LABS: ANION GAP 6 MEQ/L (8-16); BLOOD UREA NITROGEN 27 MG/DL (7-18); CALCIUM LEVEL 7.9 MG/DL (8.8-10.2); CARBON DIOXIDE LEVEL 26 MEQ/L (21-32); CHLORIDE LEVEL 112 MEQ/L (98-107); CREATININE FOR GFR 1.05 MG/DL (0.55-1.02); GLOMERULAR FILTRATION RATE 52.8 (>32); GLUCOSE, FASTING 88 MG/DL (83-110); POTASSIUM SERUM 4.6 MEQ/L (3.5-5.1); SODIUM LEVEL 144 MEQ/L (136-145)
[2017-06-17] MEDS: ALBUTEROL SULFATE 2.5 MG/0.5 ML INH NEB SOLN NEB ×2 (07:40→14:50)
[2017-06-17] MEDS: SYMBICORT 80/4.5MCG INHALER 6GM INH ×2 (07:40→20:32)
[2017-06-17] MEDS: TIOTROPIUM INHALER/CAPSULE (SPIRIVA) INH (07:40)
[2017-06-17] MEDS: **hydrALAZINE** 10 MG TAB PO ×2 (09:07→22:04)
[2017-06-17] MEDS: ISOSORBIDE MON. (IMDUR) 30 MG XR TAB PO (09:08)
[2017-06-17] MEDS: MAGNESIUM OXIDE 400 MG TAB (MAG-OX) PO (09:08)
[2017-06-18] MEDS: VANCOMYCIN ORAL SOL 250MG/5ML ORAL SYRINGE PO ×5 (00:42→23:15)
[2017-06-18 07:11] LABS: BASO # 0.2 10^3/uL (0.0-0.2); BASO % 1.1 % (0.0-1.0); EOS # 0.3 10^3/uL (0.0-0.50); EOS % 1.9 % (0.0-3.0); HEMATOCRIT 34.2 % (36.0-47.0); HEMOGLOBIN 10.9 g/dl (12.0-16.0); IMMATURE GRANULOCYTE # 0.2 10^3/uL (0-0); IMMATURE GRANULOCYTE % 1.5 % (0-0); LYMPH # 1.1 10^3/uL (1.5-4.5); LYMPH % 7.8 % (24.0-44.0); MEAN CORPUSCULAR HEMOGLOBIN 29.6 pg (27.0-33.0); MEAN CORPUSCULAR HGB CONC 31.9 g/dl (32.0-36.5); MEAN CORPUSCULAR VOLUME 92.9 fl (80.0-96.0); MONO # 1.6 10^3/uL (0.0-0.8); MONO % 11.3 % (0.0-5.0); NEUTROPHILS # 10.6 10^3/uL (1.8-7.7); NEUTROPHILS % 76.4 % (36.0-66.0); PLATELET COUNT, AUTOMATED 401 10^3/uL (150-450); RED BLOOD COUNT 3.68 10^6/uL (4.00-5.40); RED CELL DISTRIBUTION WIDTH 15.2 % (11.5-14.5); WHITE BLOOD COUNT 13.9 10^3/uL (4.0-10.0)
[2017-06-18 07:24] LABS: ANION GAP 9 MEQ/L (8-16); BLOOD UREA NITROGEN 33 MG/DL (7-18); CALCIUM LEVEL 7.9 MG/DL (8.8-10.2); CARBON DIOXIDE LEVEL 22 MEQ/L (21-32); CHLORIDE LEVEL 113 MEQ/L (98-107); CREATININE FOR GFR 1.08 MG/DL (0.55-1.02); GLOMERULAR FILTRATION RATE 51.1 (>32); GLUCOSE, FASTING 84 MG/DL (83-110); SODIUM LEVEL 144 MEQ/L (136-145)
[2017-06-18 07:26] LABS: POTASSIUM SERUM 5.3 MEQ/L (3.5-5.1)
[2017-06-18] MEDS: IPRATROPIUM 0.5MG/ALBUTEROL 2.5MG INH SOL UD 3ML (DUONEB)(J7620) NEB (07:30)
[2017-06-18] MEDS: ALBUTEROL SULFATE 2.5 MG/0.5 ML INH NEB SOLN NEB ×3 (08:00→15:29)
[2017-06-18] MEDS: TIOTROPIUM INHALER/CAPSULE (SPIRIVA) INH (08:43)
[2017-06-18] MEDS: SYMBICORT 80/4.5MCG INHALER 6GM INH (08:43)
[2017-06-18] MEDS: SOD POLYSTYRENE SULFONATE SUSP 15 GM/60 ML UD PO (09:29)
[2017-06-18] MEDS: MAGNESIUM OXIDE 400 MG TAB (MAG-OX) PO (09:30)
[2017-06-18] MEDS: CALCIUM GLUCONATE 1,000 MG in D5W MINI-BAG PLUS 100 ML IV (09:30)
[2017-06-18] MEDS: FUROSEMIDE 20 MG/2 ML VIAL (J1940) IV (09:30)
[2017-06-18] MEDS: **hydrALAZINE** 10 MG TAB PO ×2 (09:30→21:00)
[2017-06-18] MEDS: ATENOLOL 25 MG TAB PO (09:31)
[2017-06-18] MEDS: ISOSORBIDE MON. (IMDUR) 30 MG XR TAB PO (09:31)
[2017-06-18 20:51] LABS: ANION GAP 9 MEQ/L (8-16); BLOOD UREA NITROGEN 34 MG/DL (7-18); CARBON DIOXIDE LEVEL 27 MEQ/L (21-32); CHLORIDE LEVEL 110 MEQ/L (98-107); CREATININE FOR GFR 1.25 MG/DL (0.55-1.02); GLOMERULAR FILTRATION RATE 43.2 (>32); GLUCOSE, FASTING 137 MG/DL (83-110); POTASSIUM SERUM 3.9 MEQ/L (3.5-5.1); SODIUM LEVEL 146 MEQ/L (136-145)
[2017-06-19] MEDS: VANCOMYCIN ORAL SOL 250MG/5ML ORAL SYRINGE PO ×4 (06:15→23:02)
[2017-06-19] MEDS: NS 0.45% 1,000 ML IV (06:50)
[2017-06-19] MEDS: ALBUTEROL SULFATE 2.5 MG/0.5 ML INH NEB SOLN NEB ×2 (08:00→14:10)
[2017-06-19] MEDS: TIOTROPIUM INHALER/CAPSULE (SPIRIVA) INH (08:13)
[2017-06-19] MEDS: SYMBICORT 80/4.5MCG INHALER 6GM INH ×2 (08:13→21:04)
[2017-06-19] MEDS: MAGNESIUM OXIDE 400 MG TAB (MAG-OX) PO (09:45)
[2017-06-19] MEDS: ATENOLOL 25 MG TAB PO (09:46)
[2017-06-19 10:24] LABS: CPK CREATINE PHOSPHOKINASE 39 U/L (26-192); TROPONIN I 0.08 NG/ML (< 0.10)
[2017-06-19 10:25] LABS: CK-MB VALUE MASS 2.5 NG/ML (0.0-3.6); MB/CK RELATIVE INDEX 6.41 (< OR =4); NT-PRO BNP 9923 PG/ML (<450)
[2017-06-19] MEDS: FUROSEMIDE 20 MG/2 ML VIAL (J1940) IV (11:44)
[2017-06-19 20:38] LABS: ANION GAP 9 MEQ/L (8-16); BLOOD UREA NITROGEN 36 MG/DL (7-18); CALCIUM LEVEL 7.7 MG/DL (8.8-10.2); CARBON DIOXIDE LEVEL 26 MEQ/L (21-32); CHLORIDE LEVEL 106 MEQ/L (98-107); CREATININE FOR GFR 1.28 MG/DL (0.55-1.02); GLUCOSE, FASTING 136 MG/DL (83-110); POTASSIUM SERUM 3.7 MEQ/L (3.5-5.1); SODIUM LEVEL 141 MEQ/L (136-145)
[2017-06-20] MEDS: VANCOMYCIN ORAL SOL 250MG/5ML ORAL SYRINGE PO ×4 (05:42→23:43)
[2017-06-20] MEDS: FUROSEMIDE 40 MG/4 ML VIAL (J1940) IV (06:44)
[2017-06-20] MEDS: ALBUTEROL SULFATE 2.5 MG/0.5 ML INH NEB SOLN NEB ×3 (08:00→15:10)
[2017-06-20] MEDS: TIOTROPIUM INHALER/CAPSULE (SPIRIVA) INH (08:12)
[2017-06-20] MEDS: SYMBICORT 80/4.5MCG INHALER 6GM INH ×2 (08:13→20:37)
[2017-06-20] MEDS: MAGNESIUM OXIDE 400 MG TAB (MAG-OX) PO (09:14)
[2017-06-20] MEDS: ATENOLOL 25 MG TAB PO (09:14)
[2017-06-21] MEDS: VANCOMYCIN ORAL SOL 250MG/5ML ORAL SYRINGE PO ×4 (05:36→23:37)
[2017-06-21] MEDS: ALBUTEROL SULFATE 2.5 MG/0.5 ML INH NEB SOLN NEB ×3 (08:00→15:33)
[2017-06-21] MEDS: TIOTROPIUM INHALER/CAPSULE (SPIRIVA) INH (09:00)
[2017-06-21] MEDS ORDERED: FUROSEMIDE 20 MG/2 ML VIAL (J1940) IV (09:00)
[2017-06-21] MEDS: SYMBICORT 80/4.5MCG INHALER 6GM INH ×2 (09:00→21:00)
[2017-06-21] MEDS: FUROSEMIDE 40 MG/4 ML VIAL (J1940) IV (09:38)
[2017-06-21] MEDS: MAGNESIUM OXIDE 400 MG TAB (MAG-OX) PO (09:38)
[2017-06-21] MEDS: ATENOLOL 25 MG TAB PO (09:39)
[2017-06-22] MEDS: ALBUTEROL SULFATE 2.5 MG/0.5 ML INH NEB SOLN NEB ×3 (00:30→15:20)
[2017-06-22] MEDS: VANCOMYCIN ORAL SOL 250MG/5ML ORAL SYRINGE PO ×3 (05:47→17:35)
[2017-06-22] MEDS: TIOTROPIUM INHALER/CAPSULE (SPIRIVA) INH (08:38)
[2017-06-22] MEDS: SYMBICORT 80/4.5MCG INHALER 6GM INH ×2 (08:38→20:49)
[2017-06-22] MEDS: MAGNESIUM OXIDE 400 MG TAB (MAG-OX) PO (09:45)
[2017-06-22] MEDS: ATENOLOL 25 MG TAB PO (09:45)
[2017-06-22 10:10] LABS: HEMATOCRIT 37.4 % (36.0-47.0); HEMOGLOBIN 11.8 g/dl (12.0-16.0); MEAN CORPUSCULAR HEMOGLOBIN 28.9 pg (27.0-33.0); MEAN CORPUSCULAR HGB CONC 31.6 g/dl (32.0-36.5); MEAN CORPUSCULAR VOLUME 91.7 fl (80.0-96.0); PLATELET COUNT, AUTOMATED 528 10^3/uL (150-450); RED BLOOD COUNT 4.08 10^6/uL (4.00-5.40); RED CELL DISTRIBUTION WIDTH 14.6 % (11.5-14.5); WHITE BLOOD COUNT 14.2 10^3/uL (4.0-10.0)
[2017-06-22 10:23] LABS: ANION GAP 9 MEQ/L (8-16); BLOOD UREA NITROGEN 39 MG/DL (7-18); CARBON DIOXIDE LEVEL 28 MEQ/L (21-32); CHLORIDE LEVEL 106 MEQ/L (98-107); CREATININE FOR GFR 1.39 MG/DL (0.55-1.02); GLOMERULAR FILTRATION RATE 38.2 (>32); GLUCOSE, FASTING 160 MG/DL (83-110); POTASSIUM SERUM 3.6 MEQ/L (3.5-5.1); SODIUM LEVEL 143 MEQ/L (136-145)
[2017-06-23] MEDS: VANCOMYCIN ORAL SOL 250MG/5ML ORAL SYRINGE PO ×5 (00:01→23:09)
[2017-06-23 06:43] LABS: HEMATOCRIT 38.6 % (36.0-47.0); HEMOGLOBIN 12.2 g/dl (12.0-16.0); MEAN CORPUSCULAR HEMOGLOBIN 28.6 pg (27.0-33.0); MEAN CORPUSCULAR HGB CONC 31.6 g/dl (32.0-36.5); MEAN CORPUSCULAR VOLUME 90.4 fl (80.0-96.0); PLATELET COUNT, AUTOMATED 466 10^3/uL (150-450); RED BLOOD COUNT 4.27 10^6/uL (4.00-5.40); RED CELL DISTRIBUTION WIDTH 14.6 % (11.5-14.5); WHITE BLOOD COUNT 13.3 10^3/uL (4.0-10.0)
[2017-06-23 07:02] LABS: ANION GAP 8 MEQ/L (8-16); BLOOD UREA NITROGEN 39 MG/DL (7-18); CALCIUM LEVEL 8.3 MG/DL (8.8-10.2); CARBON DIOXIDE LEVEL 27 MEQ/L (21-32); CHLORIDE LEVEL 108 MEQ/L (98-107); CREATININE FOR GFR 1.09 MG/DL (0.55-1.02); GLOMERULAR FILTRATION RATE 50.5 (>32); GLUCOSE, FASTING 90 MG/DL (83-110); POTASSIUM SERUM 4.2 MEQ/L (3.5-5.1); SODIUM LEVEL 143 MEQ/L (136-145)
[2017-06-23] MEDS: TIOTROPIUM INHALER/CAPSULE (SPIRIVA) INH (07:20)
[2017-06-23] MEDS: ALBUTEROL SULFATE 2.5 MG/0.5 ML INH NEB SOLN NEB ×3 (07:20→15:54)
[2017-06-23] MEDS: SYMBICORT 80/4.5MCG INHALER 6GM INH ×2 (07:20→19:41)
[2017-06-23] MEDS: MAGNESIUM OXIDE 400 MG TAB (MAG-OX) PO (09:31)
[2017-06-23] MEDS: ATENOLOL 25 MG TAB PO (09:34)
[2017-06-24] MEDS: VANCOMYCIN ORAL SOL 250MG/5ML ORAL SYRINGE PO ×2 (05:13→11:30)
[2017-06-24 07:31] LABS: HEMOGLOBIN 12.2 g/dl (12.0-16.0); MEAN CORPUSCULAR HEMOGLOBIN 29.1 pg (27.0-33.0); MEAN CORPUSCULAR HGB CONC 32.1 g/dl (32.0-36.5); MEAN CORPUSCULAR VOLUME 90.7 fl (80.0-96.0); PLATELET COUNT, AUTOMATED 496 10^3/uL (150-450); RED BLOOD COUNT 4.19 10^6/uL (4.00-5.40); RED CELL DISTRIBUTION WIDTH 14.6 % (11.5-14.5); WHITE BLOOD COUNT 13.7 10^3/uL (4.0-10.0)
[2017-06-24 07:48] LABS: ANION GAP 8 MEQ/L (8-16); BLOOD UREA NITROGEN 40 MG/DL (7-18); CALCIUM LEVEL 8.2 MG/DL (8.8-10.2); CARBON DIOXIDE LEVEL 27 MEQ/L (21-32); CHLORIDE LEVEL 107 MEQ/L (98-107); CREATININE FOR GFR 1.16 MG/DL (0.55-1.02); GLUCOSE, FASTING 98 MG/DL (83-110); SODIUM LEVEL 142 MEQ/L (136-145)
[2017-06-24] MEDS: ALBUTEROL SULFATE 2.5 MG/0.5 ML INH NEB SOLN NEB ×3 (08:00→15:52)
[2017-06-24] MEDS: SYMBICORT 80/4.5MCG INHALER 6GM INH (09:15)
[2017-06-24] MEDS: TIOTROPIUM INHALER/CAPSULE (SPIRIVA) INH (09:15)
[2017-06-24] MEDS: ATENOLOL 25 MG TAB PO (09:29)
[2017-06-24] MEDS: MAGNESIUM OXIDE 400 MG TAB (MAG-OX) PO (09:29)
== END 2017-06-24 16:37 | disposition home or self-care (01) | DRG 371 ==
LOC: M ED 17:17 → M ED INP 21:15 → M MS5PR 23:00
PROC: 30233N1 Transfusion of Nonautologous Red Blood Cells into Peripheral Vein, Percutaneous Approach (ICD-10-PCS; principal; 2017-06-11)
DX: A04.72 Enterocolitis due to Clostridium difficile, not specified as recurrent (principal); I50.33 Acute on chronic diastolic (congestive) heart failure; N17.9 Acute kidney failure, unspecified; K92.2 Gastrointestinal hemorrhage, unspecified; D62 Acute posthemorrhagic anemia; J44.9 Chronic obstructive pulmonary disease, unspecified; E89.0 Postprocedural hypothyroidism; I11.0 Hypertensive heart disease with heart failure; I48.0 Paroxysmal atrial fibrillation; Z90.710 Acquired absence of both cervix and uterus; Z98.41 Cataract extraction status, right eye; Z98.42 Cataract extraction status, left eye; Z96.642 Presence of left artificial hip joint; Z79.82 Long term (current) use of aspirin; Z79.899 Other long term (current) drug therapy; Z88.2 Allergy status to sulfonamides; Z91.030 Bee allergy status

== ENCOUNTER 2017-06-30 16:19 | Inpatient (IN) | payer MEDICARE, OTHER ==
[2017-06-30 18:28] LABS: BASO # 0.1 10^3/uL (0.0-0.2); BASO % 0.8 % (0.0-1.0); EOS # 0.2 10^3/uL (0.0-0.50); EOS % 1.5 % (0.0-3.0); HEMATOCRIT 38.5 % (36.0-47.0); HEMOGLOBIN 11.9 g/dl (12.0-16.0); IMMATURE GRANULOCYTE # 0.1 10^3/uL (0-0); IMMATURE GRANULOCYTE % 0.7 % (0-0); LYMPH # 0.9 10^3/uL (1.5-4.5); LYMPH % 6.6 % (24.0-44.0); MEAN CORPUSCULAR HEMOGLOBIN 28.3 pg (27.0-33.0); MEAN CORPUSCULAR HGB CONC 30.9 g/dl (32.0-36.5); MEAN CORPUSCULAR VOLUME 91.7 fl (80.0-96.0); MONO # 1.3 10^3/uL (0.0-0.8); MONO % 10.4 % (0.0-5.0); NEUTROPHILS # 10.4 10^3/uL (1.8-7.7); PLATELET COUNT, AUTOMATED 452 10^3/uL (150-450); RED CELL DISTRIBUTION WIDTH 14.8 % (11.5-14.5); WHITE BLOOD COUNT 12.9 10^3/uL (4.0-10.0)
[2017-06-30 18:57] LABS: ANION GAP 7 MEQ/L (8-16); BLOOD UREA NITROGEN 39 MG/DL (7-18); CALCIUM LEVEL 9.9 MG/DL (8.8-10.2); CARBON DIOXIDE LEVEL 31 MEQ/L (21-32); CHLORIDE LEVEL 110 MEQ/L (98-107); CREATININE FOR GFR 1.24 MG/DL (0.55-1.02); GLOMERULAR FILTRATION RATE 43.6 (>32); GLUCOSE, FASTING 121 MG/DL (83-110); POTASSIUM SERUM 3.7 MEQ/L (3.5-5.1); SODIUM LEVEL 148 MEQ/L (136-145)
[2017-06-30] MEDS ORDERED: ONDANSETRON 4MG/2ML VIAL (J2405) IV (20:00)
[2017-06-30] MEDS: FLUTICASONE PROP 0.05% NASAL SPRAY 16 GM (FLONASE) (21:00)
[2017-06-30] MEDS: amLODIPine 5 MG TAB PO (22:00)
[2017-07-01] MEDS: FUROSEMIDE 40 MG/4 ML VIAL (J1940) IV ×2 (00:24→08:58)
[2017-07-01] MEDS: SYMBICORT 80/4.5MCG INHALER 6GM INH ×2 (08:48→22:09)
[2017-07-01] MEDS: ASPIRIN 81 MG ENTERIC TAB PO (08:58)
[2017-07-01] MEDS: PANTOPRAZOLE 40MG TAB (PROTONIX) PO (08:58)
[2017-07-01] MEDS: MULTIVITAMINS/MINERALS THERAP 1 TAB PO (08:58)
[2017-07-01] MEDS: amLODIPine 5 MG TAB PO (08:58)
[2017-07-01] MEDS: HEPARIN SOD (PORCINE) 5000 UNITS/ML VIAL SQ ×2 (11:20→20:25)
[2017-07-01] MEDS ORDERED: MORPHINE 2 MG/ML 1ML SYRINGE IV (14:15)
[2017-07-01] MEDS: MORPHINE 2 MG/ML 1ML SYRINGE IV (14:27)
[2017-07-01] MEDS: D5W/0.45% SODIUM CHLORIDE 1,000 ML IV (14:27)
[2017-07-01 14:54] LABS: BASO # 0.1 10^3/uL (0.0-0.2); BASO % 0.7 % (0.0-1.0); EOS # 0.2 10^3/uL (0.0-0.50); EOS % 1.4 % (0.0-3.0); HEMATOCRIT 36.8 % (36.0-47.0); HEMOGLOBIN 11.4 g/dl (12.0-16.0); IMMATURE GRANULOCYTE # 0.1 10^3/uL (0-0); IMMATURE GRANULOCYTE % 0.9 % (0-0); LYMPH # 0.9 10^3/uL (1.5-4.5); LYMPH % 7.7 % (24.0-44.0); MEAN CORPUSCULAR HEMOGLOBIN 28.3 pg (27.0-33.0); MEAN CORPUSCULAR VOLUME 91.3 fl (80.0-96.0); MONO # 1.1 10^3/uL (0.0-0.8); MONO % 9.4 % (0.0-5.0); NEUTROPHILS # 9.1 10^3/uL (1.8-7.7); NEUTROPHILS % 79.9 % (36.0-66.0); PLATELET COUNT, AUTOMATED 459 10^3/uL (150-450); RED BLOOD COUNT 4.03 10^6/uL (4.00-5.40); RED CELL DISTRIBUTION WIDTH 14.9 % (11.5-14.5); WHITE BLOOD COUNT 11.4 10^3/uL (4.0-10.0)
[2017-07-01 15:05] LABS: ALBUMIN 2.5 GM/DL (3.2-5.2); ALBUMIN/GLOBULIN RATIO 0.74 (1.00-1.93); ALKALINE PHOSPHATASE 486 U/L (45-117); ALT/SGPT 31 U/L (12-78); AMYLASE 37 U/L (25-115); ANION GAP 10 MEQ/L (8-16); AST/SGOT 37 U/L (7-37); BILIRUBIN,TOTAL 0.8 MG/DL (0.2-1.0); BLOOD UREA NITROGEN 40 MG/DL (7-18); CALCIUM LEVEL 9.4 MG/DL (8.8-10.2); CARBON DIOXIDE LEVEL 29 MEQ/L (21-32); CHLORIDE LEVEL 107 MEQ/L (98-107); CREATININE FOR GFR 1.35 MG/DL (0.55-1.02); GLOMERULAR FILTRATION RATE 39.5 (>32); GLUCOSE, FASTING 226 MG/DL (83-110); LIPASE 121 U/L (73-393); POTASSIUM SERUM 3.9 MEQ/L (3.5-5.1); SODIUM LEVEL 146 MEQ/L (136-145); TOTAL PROTEIN 5.9 GM/DL (6.4-8.2)
[2017-07-01 15:14] LABS: LACTIC ACID SEPSIS PROTOCOL 3.9 MMOL/L (0.4-2.0)
[2017-07-01 15:19] LABS: ERYTHROCYTE SEDIMENTATION RATE 11 mm/hr (0-42)
[2017-07-01] MEDS: VANCOMYCIN ORAL SOL 250MG/5ML ORAL SYRINGE PO (17:58)
[2017-07-01] MEDS: D5/0.45%NACL 1000ML IV (20:24)
[2017-07-01 23:29] LABS: LACTIC ACID SEPSIS PROTOCOL 2.3 MMOL/L (0.4-2.0)
[2017-07-02] MEDS: VANCOMYCIN ORAL SOL 250MG/5ML ORAL SYRINGE PO ×6 (00:57→23:49)
[2017-07-02] MEDS: D5W/0.45% SODIUM CHLORIDE 1,000 ML IV ×2 (01:00→14:10)
[2017-07-02] MEDS: ACETAMINOPHEN TAB 650MG DOSE (2X325MG) PO ×2 (01:16→23:49)
[2017-07-02] MEDS: FLUTICASONE PROP 0.05% NASAL SPRAY 16 GM (FLONASE) ×2 (01:16→20:49)
[2017-07-02 06:28] LABS: BASO # 0.1 10^3/uL (0.0-0.2); BASO % 0.6 % (0.0-1.0); EOS # 0.5 10^3/uL (0.0-0.50); EOS % 4.1 % (0.0-3.0); HEMATOCRIT 33.5 % (36.0-47.0); HEMOGLOBIN 10.6 g/dl (12.0-16.0); IMMATURE GRANULOCYTE # 0.1 10^3/uL (0-0); IMMATURE GRANULOCYTE % 1.1 % (0-0); LYMPH % 8.3 % (24.0-44.0); MEAN CORPUSCULAR HEMOGLOBIN 28.1 pg (27.0-33.0); MEAN CORPUSCULAR HGB CONC 31.6 g/dl (32.0-36.5); MEAN CORPUSCULAR VOLUME 88.9 fl (80.0-96.0); MONO # 1.3 10^3/uL (0.0-0.8); MONO % 10.7 % (0.0-5.0); NEUTROPHILS # 9.4 10^3/uL (1.8-7.7); NEUTROPHILS % 75.2 % (36.0-66.0); PLATELET COUNT, AUTOMATED 421 10^3/uL (150-450); RED BLOOD COUNT 3.77 10^6/uL (4.00-5.40); WHITE BLOOD COUNT 12.5 10^3/uL (4.0-10.0)
[2017-07-02 07:01] LABS: ANION GAP 7 MEQ/L (8-16); BLOOD UREA NITROGEN 36 MG/DL (7-18); CARBON DIOXIDE LEVEL 30 MEQ/L (21-32); CHLORIDE LEVEL 108 MEQ/L (98-107); GLOMERULAR FILTRATION RATE 45.2 (>32); GLUCOSE, FASTING 111 MG/DL (83-110); POTASSIUM SERUM 3.6 MEQ/L (3.5-5.1); SODIUM LEVEL 145 MEQ/L (136-145)
[2017-07-02] MEDS: SYMBICORT 80/4.5MCG INHALER 6GM INH ×2 (08:10→21:12)
[2017-07-02] MEDS: HEPARIN SOD (PORCINE) 5000 UNITS/ML VIAL SQ ×2 (08:32→20:49)
[2017-07-02] MEDS: MULTIVITAMINS/MINERALS THERAP 1 TAB PO (08:32)
[2017-07-02] MEDS: PANTOPRAZOLE 40MG TAB (PROTONIX) PO (08:32)
[2017-07-02] MEDS: amLODIPine 5 MG TAB PO (08:33)
[2017-07-02] MEDS: ONDANSETRON 4MG/2ML VIAL (J2405) IV ×3 (09:59→21:14)
[2017-07-02 16:57] LABS: ALPHA FETOPROTEIN TUMOR QUANT 2.3 NG/ML (<8.1)
[2017-07-02 17:00] LABS: CARCINOEMBRYONIC ANTIGEN 2.9 NG/ML (<2.5)
[2017-07-02 17:18] LABS: CA19-9 TUMOR MARKER,CARBOHYDRA 13.4 U/ML (<35.0)
[2017-07-03] MEDS: D5W/0.45% SODIUM CHLORIDE 1,000 ML IV (02:30)
[2017-07-03] MEDS: ONDANSETRON 4MG/2ML VIAL (J2405) IV ×4 (04:00→21:32)
[2017-07-03 05:45] LABS: BASO # 0.1 10^3/uL (0.0-0.2); BASO % 0.6 % (0.0-1.0); EOS # 0.5 10^3/uL (0.0-0.50); EOS % 3.5 % (0.0-3.0); HEMATOCRIT 36.3 % (36.0-47.0); HEMOGLOBIN 11.5 g/dl (12.0-16.0); IMMATURE GRANULOCYTE # 0.2 10^3/uL (0-0); IMMATURE GRANULOCYTE % 1.4 % (0-0); LYMPH # 0.9 10^3/uL (1.5-4.5); LYMPH % 6.7 % (24.0-44.0); MEAN CORPUSCULAR HEMOGLOBIN 28.8 pg (27.0-33.0); MEAN CORPUSCULAR HGB CONC 31.7 g/dl (32.0-36.5); MEAN CORPUSCULAR VOLUME 90.8 fl (80.0-96.0); MONO # 1.2 10^3/uL (0.0-0.8); NEUTROPHILS # 10.8 10^3/uL (1.8-7.7); NEUTROPHILS % 78.8 % (36.0-66.0); PLATELET COUNT, AUTOMATED 416 10^3/uL (150-450); WHITE BLOOD COUNT 13.7 10^3/uL (4.0-10.0)
[2017-07-03 05:49] LABS: ANION GAP 7 MEQ/L (8-16); BLOOD UREA NITROGEN 30 MG/DL (7-18); CARBON DIOXIDE LEVEL 27 MEQ/L (21-32); CHLORIDE LEVEL 106 MEQ/L (98-107); CREATININE FOR GFR 1.14 MG/DL (0.55-1.02); GLUCOSE, FASTING 114 MG/DL (83-110); POTASSIUM SERUM 3.7 MEQ/L (3.5-5.1); SODIUM LEVEL 140 MEQ/L (136-145)
[2017-07-03] MEDS: VANCOMYCIN ORAL SOL 250MG/5ML ORAL SYRINGE PO ×4 (06:23→23:35)
[2017-07-03] MEDS: SYMBICORT 80/4.5MCG INHALER 6GM INH ×2 (08:10→20:11)
[2017-07-03] MEDS: HEPARIN SOD (PORCINE) 5000 UNITS/ML VIAL SQ ×2 (09:00→20:52)
[2017-07-03] MEDS: MULTIVITAMINS/MINERALS THERAP 1 TAB PO (09:04)
[2017-07-03] MEDS: PANTOPRAZOLE 40MG TAB (PROTONIX) PO (09:04)
[2017-07-03] MEDS: amLODIPine 5 MG TAB PO (09:04)
[2017-07-03] MEDS: ACETAMINOPHEN TAB 650MG DOSE (2X325MG) PO (20:51)
[2017-07-03] MEDS: FLUTICASONE PROP 0.05% NASAL SPRAY 16 GM (FLONASE) (20:53)
[2017-07-04] MEDS: ONDANSETRON 4MG/2ML VIAL (J2405) IV ×4 (04:25→21:45)
[2017-07-04] MEDS: VANCOMYCIN ORAL SOL 250MG/5ML ORAL SYRINGE PO ×3 (05:57→17:53)
[2017-07-04 06:09] LABS: BASO # 0.1 10^3/uL (0.0-0.2); BASO % 0.7 % (0.0-1.0); EOS # 0.4 10^3/uL (0.0-0.50); EOS % 2.7 % (0.0-3.0); HEMATOCRIT 35.4 % (36.0-47.0); HEMOGLOBIN 10.9 g/dl (12.0-16.0); IMMATURE GRANULOCYTE # 0.2 10^3/uL (0-0); IMMATURE GRANULOCYTE % 1.3 % (0-0); LYMPH % 7.2 % (24.0-44.0); MEAN CORPUSCULAR HEMOGLOBIN 27.9 pg (27.0-33.0); MEAN CORPUSCULAR HGB CONC 30.8 g/dl (32.0-36.5); MEAN CORPUSCULAR VOLUME 90.8 fl (80.0-96.0); MONO # 1.3 10^3/uL (0.0-0.8); MONO % 9.5 % (0.0-5.0); NEUTROPHILS % 78.6 % (36.0-66.0); PLATELET COUNT, AUTOMATED 416 10^3/uL (150-450); RED CELL DISTRIBUTION WIDTH 15.1 % (11.5-14.5)
[2017-07-04 06:31] LABS: ANION GAP 7 MEQ/L (8-16); BLOOD UREA NITROGEN 33 MG/DL (7-18); CARBON DIOXIDE LEVEL 27 MEQ/L (21-32); CHLORIDE LEVEL 107 MEQ/L (98-107); CREATININE FOR GFR 1.15 MG/DL (0.55-1.02); GLOMERULAR FILTRATION RATE 47.5 (>32); GLUCOSE, FASTING 87 MG/DL (83-110); POTASSIUM SERUM 4.5 MEQ/L (3.5-5.1); SODIUM LEVEL 141 MEQ/L (136-145)
[2017-07-04] MEDS: SYMBICORT 80/4.5MCG INHALER 6GM INH ×2 (07:58→21:00)
[2017-07-04] MEDS: amLODIPine 5 MG TAB PO (08:26)
[2017-07-04] MEDS: PANTOPRAZOLE 40MG TAB (PROTONIX) PO (08:26)
[2017-07-04] MEDS: MULTIVITAMINS/MINERALS THERAP 1 TAB PO (08:26)
[2017-07-04] MEDS: HEPARIN SOD (PORCINE) 5000 UNITS/ML VIAL SQ ×2 (08:26→21:44)
[2017-07-04] MEDS: D5W/0.45% SODIUM CHLORIDE 1,000 ML IV (10:19)
[2017-07-04 12:43] LABS: KETONE, URINE AUTO RFX NEGATIVE (NEGATIVE); LEUKOCYTE ESTERASE UR AUTO RFX NEGATIVE (NEGATIVE); NITRITE, URINE AUTO RFX NEGATIVE (NEGATIVE); RBC, URINE AUTO RFX 1 /HPF (0-3); SQUAM EPITHELIAL CELL UR AURFX 0 /HPF (0-6); WBC, URINE AUTO RFX 2 /HPF (0-3)
[2017-07-04] MEDS: ACETAMINOPHEN TAB 650MG DOSE (2X325MG) PO (15:46)
[2017-07-04] MEDS ORDERED: IPRATROPIUM 0.5MG/ALBUTEROL 2.5MG INH SOL UD 3ML (DUONEB)(J7620) NEB (16:15)
[2017-07-04] MEDS: FUROSEMIDE 40 MG/4 ML VIAL (J1940) IV (16:32)
[2017-07-04] MEDS: IPRATROPIUM 0.5MG/ALBUTEROL 2.5MG INH SOL UD 3ML (DUONEB)(J7620) NEB ×3 (16:54→23:51)
[2017-07-04] MEDS: FLUTICASONE PROP 0.05% NASAL SPRAY 16 GM (FLONASE) (21:45)
[2017-07-05] MEDS: ONDANSETRON 4MG/2ML VIAL (J2405) IV ×4 (03:47→21:23)
[2017-07-05] MEDS: IPRATROPIUM 0.5MG/ALBUTEROL 2.5MG INH SOL UD 3ML (DUONEB)(J7620) NEB ×6 (04:00→23:07)
[2017-07-05] MEDS: VANCOMYCIN ORAL SOL 250MG/5ML ORAL SYRINGE PO ×5 (05:53→23:54)
[2017-07-05 06:34] LABS: BASO # 0.1 10^3/uL (0.0-0.2); BASO % 0.5 % (0.0-1.0); EOS # 0.6 10^3/uL (0.0-0.50); EOS % 4.4 % (0.0-3.0); HEMATOCRIT 35.3 % (36.0-47.0); HEMOGLOBIN 11.2 g/dl (12.0-16.0); IMMATURE GRANULOCYTE # 0.1 10^3/uL (0-0); IMMATURE GRANULOCYTE % 1.1 % (0-0); LYMPH # 0.8 10^3/uL (1.5-4.5); LYMPH % 5.9 % (24.0-44.0); MEAN CORPUSCULAR HEMOGLOBIN 28.1 pg (27.0-33.0); MEAN CORPUSCULAR HGB CONC 31.7 g/dl (32.0-36.5); MEAN CORPUSCULAR VOLUME 88.7 fl (80.0-96.0); MONO # 1.3 10^3/uL (0.0-0.8); MONO % 9.6 % (0.0-5.0); NEUTROPHILS # 10.3 10^3/uL (1.8-7.7); NEUTROPHILS % 78.5 % (36.0-66.0); PLATELET COUNT, AUTOMATED 459 10^3/uL (150-450); RED BLOOD COUNT 3.98 10^6/uL (4.00-5.40); RED CELL DISTRIBUTION WIDTH 15.3 % (11.5-14.5); WHITE BLOOD COUNT 13.1 10^3/uL (4.0-10.0)
[2017-07-05 06:50] LABS: ANION GAP 4 MEQ/L (8-16); BLOOD UREA NITROGEN 31 MG/DL (7-18); CARBON DIOXIDE LEVEL 31 MEQ/L (21-32); CHLORIDE LEVEL 105 MEQ/L (98-107); CREATININE FOR GFR 1.27 MG/DL (0.55-1.02); GLOMERULAR FILTRATION RATE 42.4 (>32); GLUCOSE, FASTING 82 MG/DL (83-110); SODIUM LEVEL 140 MEQ/L (136-145)
[2017-07-05] MEDS: SYMBICORT 80/4.5MCG INHALER 6GM INH ×2 (08:07→21:37)
[2017-07-05] MEDS: HEPARIN SOD (PORCINE) 5000 UNITS/ML VIAL SQ ×2 (09:00→21:23)
[2017-07-05] MEDS: amLODIPine 5 MG TAB PO (09:17)
[2017-07-05] MEDS: PANTOPRAZOLE 40MG TAB (PROTONIX) PO (09:17)
[2017-07-05] MEDS: MULTIVITAMINS/MINERALS THERAP 1 TAB PO (09:17)
[2017-07-05] MEDS: FLUTICASONE PROP 0.05% NASAL SPRAY 16 GM (FLONASE) (21:22)
[2017-07-06] MEDS: IPRATROPIUM 0.5MG/ALBUTEROL 2.5MG INH SOL UD 3ML (DUONEB)(J7620) NEB ×5 (03:12→23:40)
[2017-07-06] MEDS: ONDANSETRON 4MG/2ML VIAL (J2405) IV ×4 (03:49→21:31)
[2017-07-06] MEDS: VANCOMYCIN ORAL SOL 250MG/5ML ORAL SYRINGE PO ×3 (05:24→18:16)
[2017-07-06 06:21] LABS: HEMATOCRIT 33.2 % (36.0-47.0); HEMOGLOBIN 10.5 g/dl (12.0-16.0); MEAN CORPUSCULAR HEMOGLOBIN 28.2 pg (27.0-33.0); MEAN CORPUSCULAR HGB CONC 31.6 g/dl (32.0-36.5); MEAN CORPUSCULAR VOLUME 89.2 fl (80.0-96.0); NEUTROPHILS % 76.4 % (36.0-66.0); PLATELET COUNT, AUTOMATED 440 10^3/uL (150-450); RED BLOOD COUNT 3.72 10^6/uL (4.00-5.40); RED CELL DISTRIBUTION WIDTH 15.5 % (11.5-14.5); WHITE BLOOD COUNT 12.2 10^3/uL (4.0-10.0)
[2017-07-06 06:22] LABS: BASO # 0.1 10^3/uL (0.0-0.2); BASO % 0.7 % (0.0-1.0); EOS # 0.4 10^3/uL (0.0-0.50); EOS % 2.9 % (0.0-3.0); IMMATURE GRANULOCYTE # 0.1 10^3/uL (0-0); IMMATURE GRANULOCYTE % 1.1 % (0-0); LYMPH % 8.2 % (24.0-44.0); MONO # 1.3 10^3/uL (0.0-0.8); MONO % 10.7 % (0.0-5.0); NEUTROPHILS # 9.3 10^3/uL (1.8-7.7)
[2017-07-06 06:43] LABS: ANION GAP 5 MEQ/L (8-16); BLOOD UREA NITROGEN 35 MG/DL (7-18); CARBON DIOXIDE LEVEL 30 MEQ/L (21-32); CHLORIDE LEVEL 104 MEQ/L (98-107); CREATININE FOR GFR 1.46 MG/DL (0.55-1.02); GLOMERULAR FILTRATION RATE 36.1 (>32); GLUCOSE, FASTING 89 MG/DL (83-110); POTASSIUM SERUM 4.3 MEQ/L (3.5-5.1); SODIUM LEVEL 139 MEQ/L (136-145)
[2017-07-06] MEDS: SYMBICORT 80/4.5MCG INHALER 6GM INH ×2 (07:36→19:54)
[2017-07-06] MEDS: amLODIPine 5 MG TAB PO (09:09)
[2017-07-06] MEDS: HEPARIN SOD (PORCINE) 5000 UNITS/ML VIAL SQ ×2 (09:09→20:50)
[2017-07-06] MEDS: PANTOPRAZOLE 40MG TAB (PROTONIX) PO (09:09)
[2017-07-06] MEDS: MULTIVITAMINS/MINERALS THERAP 1 TAB PO (09:09)
[2017-07-06] MEDS ORDERED: PIPERACILLIN/TAZOBACTAM SOD 3.375 GM in APPROPRIATE DILUENT 1 EA IV (13:15)
[2017-07-06] MEDS: PIPERACILLIN/TAZOBACTAM SOD 2.25 GM in APPROPRIATE DILUENT 1 EA IV ×2 (14:57→20:50)
[2017-07-06] MEDS: FLUTICASONE PROP 0.05% NASAL SPRAY 16 GM (FLONASE) (20:51)
[2017-07-06] MEDS: TIOTROPIUM INHALER/CAPSULE (SPIRIVA) INH (21:00)
[2017-07-06] MEDS: FIDAXOMICIN 200 MG TAB (DIFICID) PO (21:31)
[2017-07-07] MEDS: PIPERACILLIN/TAZOBACTAM SOD 2.25 GM in APPROPRIATE DILUENT 1 EA IV ×4 (02:33→21:15)
[2017-07-07] MEDS: ONDANSETRON 4MG/2ML VIAL (J2405) IV ×4 (03:08→21:14)
[2017-07-07] MEDS: SYMBICORT 80/4.5MCG INHALER 6GM INH ×2 (07:45→22:57)
[2017-07-07] MEDS: IPRATROPIUM 0.5MG/ALBUTEROL 2.5MG INH SOL UD 3ML (DUONEB)(J7620) NEB ×3 (08:00→22:58)
[2017-07-07] MEDS: PANTOPRAZOLE 40MG TAB (PROTONIX) PO (08:27)
[2017-07-07] MEDS: MULTIVITAMINS/MINERALS THERAP 1 TAB PO (08:27)
[2017-07-07] MEDS: FIDAXOMICIN 200 MG TAB (DIFICID) PO ×2 (08:27→21:13)
[2017-07-07] MEDS: amLODIPine 5 MG TAB PO (08:28)
[2017-07-07] MEDS: HEPARIN SOD (PORCINE) 5000 UNITS/ML VIAL SQ ×2 (08:28→21:14)
[2017-07-07] MEDS: FLUTICASONE PROP 0.05% NASAL SPRAY 16 GM (FLONASE) (21:15)
[2017-07-07] MEDS: TIOTROPIUM INHALER/CAPSULE (SPIRIVA) INH (22:57)
[2017-07-08] MEDS: PIPERACILLIN/TAZOBACTAM SOD 2.25 GM in APPROPRIATE DILUENT 1 EA IV ×4 (03:35→21:32)
[2017-07-08] MEDS: ONDANSETRON 4MG/2ML VIAL (J2405) IV ×4 (03:35→21:31)
[2017-07-08 06:18] LABS: BASO # 0.1 10^3/uL (0.0-0.2); BASO % 0.9 % (0.0-1.0); EOS # 0.5 10^3/uL (0.0-0.50); EOS % 4.2 % (0.0-3.0); HEMATOCRIT 33.3 % (36.0-47.0); HEMOGLOBIN 10.5 g/dl (12.0-16.0); IMMATURE GRANULOCYTE # 0.1 10^3/uL (0-0); IMMATURE GRANULOCYTE % 1.2 % (0-0); LYMPH # 1.1 10^3/uL (1.5-4.5); LYMPH % 9.6 % (24.0-44.0); MEAN CORPUSCULAR HEMOGLOBIN 28.1 pg (27.0-33.0); MEAN CORPUSCULAR HGB CONC 31.5 g/dl (32.0-36.5); MONO # 1.4 10^3/uL (0.0-0.8); MONO % 12.8 % (0.0-5.0); NEUTROPHILS # 7.9 10^3/uL (1.8-7.7); NEUTROPHILS % 71.3 % (36.0-66.0); PLATELET COUNT, AUTOMATED 443 10^3/uL (150-450); RED BLOOD COUNT 3.74 10^6/uL (4.00-5.40); RED CELL DISTRIBUTION WIDTH 15.8 % (11.5-14.5); WHITE BLOOD COUNT 11.1 10^3/uL (4.0-10.0)
[2017-07-08 06:37] LABS: ANION GAP 4 MEQ/L (8-16); BLOOD UREA NITROGEN 28 MG/DL (7-18); CALCIUM LEVEL 8.1 MG/DL (8.8-10.2); CARBON DIOXIDE LEVEL 31 MEQ/L (21-32); CHLORIDE LEVEL 107 MEQ/L (98-107); CREATININE FOR GFR 1.44 MG/DL (0.55-1.02); GLOMERULAR FILTRATION RATE 36.7 (>32); GLUCOSE, FASTING 84 MG/DL (83-110); POTASSIUM SERUM 4.6 MEQ/L (3.5-5.1); SODIUM LEVEL 142 MEQ/L (136-145)
[2017-07-08] MEDS: SYMBICORT 80/4.5MCG INHALER 6GM INH ×2 (07:36→20:57)
[2017-07-08] MEDS: IPRATROPIUM 0.5MG/ALBUTEROL 2.5MG INH SOL UD 3ML (DUONEB)(J7620) NEB ×3 (07:36→23:33)
[2017-07-08] MEDS: HEPARIN SOD (PORCINE) 5000 UNITS/ML VIAL SQ ×2 (09:16→21:31)
[2017-07-08] MEDS: FIDAXOMICIN 200 MG TAB (DIFICID) PO ×2 (09:16→21:30)
[2017-07-08] MEDS: MULTIVITAMINS/MINERALS THERAP 1 TAB PO (09:17)
[2017-07-08] MEDS: amLODIPine 5 MG TAB PO (09:17)
[2017-07-08] MEDS: PANTOPRAZOLE 40MG TAB (PROTONIX) PO (09:17)
[2017-07-08] MEDS: TIOTROPIUM INHALER/CAPSULE (SPIRIVA) INH (21:00)
[2017-07-08] MEDS: FLUTICASONE PROP 0.05% NASAL SPRAY 16 GM (FLONASE) (21:31)
[2017-07-09] MEDS: PIPERACILLIN/TAZOBACTAM SOD 2.25 GM in APPROPRIATE DILUENT 1 EA IV ×4 (03:43→20:16)
[2017-07-09] MEDS: ONDANSETRON 4MG/2ML VIAL (J2405) IV ×4 (03:43→21:27)
[2017-07-09 06:20] LABS: BASO # 0.1 10^3/uL (0.0-0.2); BASO % 0.9 % (0.0-1.0); EOS # 0.5 10^3/uL (0.0-0.50); EOS % 4.6 % (0.0-3.0); HEMATOCRIT 32.7 % (36.0-47.0); HEMOGLOBIN 10.4 g/dl (12.0-16.0); IMMATURE GRANULOCYTE # 0.1 10^3/uL (0-0); IMMATURE GRANULOCYTE % 0.9 % (0-0); LYMPH # 0.9 10^3/uL (1.5-4.5); LYMPH % 8.2 % (24.0-44.0); MEAN CORPUSCULAR HEMOGLOBIN 28.4 pg (27.0-33.0); MEAN CORPUSCULAR HGB CONC 31.8 g/dl (32.0-36.5); MEAN CORPUSCULAR VOLUME 89.3 fl (80.0-96.0); MONO # 1.3 10^3/uL (0.0-0.8); MONO % 12.4 % (0.0-5.0); NEUTROPHILS # 7.7 10^3/uL (1.8-7.7); PLATELET COUNT, AUTOMATED 440 10^3/uL (150-450); RED BLOOD COUNT 3.66 10^6/uL (4.00-5.40); RED CELL DISTRIBUTION WIDTH 15.8 % (11.5-14.5); WHITE BLOOD COUNT 10.6 10^3/uL (4.0-10.0)
[2017-07-09 06:35] LABS: ANION GAP 6 MEQ/L (8-16); BLOOD UREA NITROGEN 27 MG/DL (7-18); CALCIUM LEVEL 8.9 MG/DL (8.8-10.2); CARBON DIOXIDE LEVEL 30 MEQ/L (21-32); CHLORIDE LEVEL 107 MEQ/L (98-107); CREATININE FOR GFR 1.31 MG/DL (0.55-1.02); GLOMERULAR FILTRATION RATE 40.9 (>32); GLUCOSE, FASTING 95 MG/DL (83-110); POTASSIUM SERUM 3.8 MEQ/L (3.5-5.1); SODIUM LEVEL 143 MEQ/L (136-145)
[2017-07-09] MEDS: SYMBICORT 80/4.5MCG INHALER 6GM INH ×2 (07:32→20:46)
[2017-07-09] MEDS: IPRATROPIUM 0.5MG/ALBUTEROL 2.5MG INH SOL UD 3ML (DUONEB)(J7620) NEB ×2 (07:32→15:46)
[2017-07-09] MEDS: MULTIVITAMINS/MINERALS THERAP 1 TAB PO (09:19)
[2017-07-09] MEDS: PANTOPRAZOLE 40MG TAB (PROTONIX) PO (09:19)
[2017-07-09] MEDS: FIDAXOMICIN 200 MG TAB (DIFICID) PO ×2 (09:20→20:16)
[2017-07-09] MEDS: HEPARIN SOD (PORCINE) 5000 UNITS/ML VIAL SQ ×2 (09:20→20:16)
[2017-07-09] MEDS: amLODIPine 5 MG TAB PO (09:21)
[2017-07-09] MEDS: ACETAMINOPHEN TAB 650MG DOSE (2X325MG) PO (18:30)
[2017-07-09] MEDS: FLUTICASONE PROP 0.05% NASAL SPRAY 16 GM (FLONASE) (20:16)
[2017-07-09] MEDS: TIOTROPIUM INHALER/CAPSULE (SPIRIVA) INH (21:00)
[2017-07-10] MEDS: ONDANSETRON 4MG/2ML VIAL (J2405) IV (03:20)
[2017-07-10] MEDS: PIPERACILLIN/TAZOBACTAM SOD 2.25 GM in APPROPRIATE DILUENT 1 EA IV ×2 (03:20→08:55)
[2017-07-10 06:08] LABS: BASO # 0.1 10^3/uL (0.0-0.2); EOS # 0.7 10^3/uL (0.0-0.50); EOS % 6.3 % (0.0-3.0); HEMATOCRIT 33.9 % (36.0-47.0); HEMOGLOBIN 10.7 g/dl (12.0-16.0); IMMATURE GRANULOCYTE # 0.1 10^3/uL (0-0); LYMPH # 0.9 10^3/uL (1.5-4.5); LYMPH % 7.8 % (24.0-44.0); MEAN CORPUSCULAR HEMOGLOBIN 27.9 pg (27.0-33.0); MEAN CORPUSCULAR HGB CONC 31.6 g/dl (32.0-36.5); MEAN CORPUSCULAR VOLUME 88.5 fl (80.0-96.0); MONO # 1.3 10^3/uL (0.0-0.8); NEUTROPHILS # 7.9 10^3/uL (1.8-7.7); NEUTROPHILS % 71.9 % (36.0-66.0); PLATELET COUNT, AUTOMATED 499 10^3/uL (150-450); RED BLOOD COUNT 3.83 10^6/uL (4.00-5.40)
[2017-07-10 06:26] LABS: ANION GAP 7 MEQ/L (8-16); BLOOD UREA NITROGEN 27 MG/DL (7-18); CARBON DIOXIDE LEVEL 30 MEQ/L (21-32); CHLORIDE LEVEL 108 MEQ/L (98-107); CREATININE FOR GFR 1.29 MG/DL (0.55-1.02); GLOMERULAR FILTRATION RATE 41.6 (>32); GLUCOSE, FASTING 91 MG/DL (83-110); POTASSIUM SERUM 3.8 MEQ/L (3.5-5.1); SODIUM LEVEL 145 MEQ/L (136-145)
[2017-07-10] MEDS: SYMBICORT 80/4.5MCG INHALER 6GM INH ×2 (07:59→21:49)
[2017-07-10] MEDS: IPRATROPIUM 0.5MG/ALBUTEROL 2.5MG INH SOL UD 3ML (DUONEB)(J7620) NEB ×3 (08:00→15:43)
[2017-07-10] MEDS: FIDAXOMICIN 200 MG TAB (DIFICID) PO ×2 (08:55→20:03)
[2017-07-10] MEDS: MULTIVITAMINS/MINERALS THERAP 1 TAB PO (08:56)
[2017-07-10] MEDS: PANTOPRAZOLE 40MG TAB (PROTONIX) PO (08:56)
[2017-07-10] MEDS: amLODIPine 5 MG TAB PO (08:56)
[2017-07-10] MEDS: ONDANSETRON 4 MG TAB (S0181) PO (09:40)
[2017-07-10] MEDS: HEPARIN SOD (PORCINE) 5000 UNITS/ML VIAL SQ ×2 (09:41→20:03)
[2017-07-10] MEDS: FLUTICASONE PROP 0.05% NASAL SPRAY 16 GM (FLONASE) (20:04)
[2017-07-10] MEDS: TIOTROPIUM INHALER/CAPSULE (SPIRIVA) INH (21:49)
[2017-07-11] MEDS: IPRATROPIUM 0.5MG/ALBUTEROL 2.5MG INH SOL UD 3ML (DUONEB)(J7620) NEB ×4 (08:00→23:08)
[2017-07-11] MEDS: SYMBICORT 80/4.5MCG INHALER 6GM INH ×2 (08:16→19:43)
[2017-07-11] MEDS: PANTOPRAZOLE 40MG TAB (PROTONIX) PO (09:46)
[2017-07-11] MEDS: FIDAXOMICIN 200 MG TAB (DIFICID) PO ×2 (09:46→22:23)
[2017-07-11] MEDS: HEPARIN SOD (PORCINE) 5000 UNITS/ML VIAL SQ (09:46)
[2017-07-11] MEDS: amLODIPine 5 MG TAB PO (09:47)
[2017-07-11] MEDS: FUROSEMIDE 40 MG/4 ML VIAL (J1940) IV (11:15)
[2017-07-11] MEDS: FLUTICASONE PROP 0.05% NASAL SPRAY 16 GM (FLONASE) (22:24)
[2017-07-11] MEDS: TIOTROPIUM INHALER/CAPSULE (SPIRIVA) INH (23:23)
[2017-07-12] MEDS: SYMBICORT 80/4.5MCG INHALER 6GM INH ×2 (07:59→19:43)
[2017-07-12] MEDS: IPRATROPIUM 0.5MG/ALBUTEROL 2.5MG INH SOL UD 3ML (DUONEB)(J7620) NEB ×3 (08:00→23:25)
[2017-07-12] MEDS: PANTOPRAZOLE 40MG TAB (PROTONIX) PO (08:47)
[2017-07-12] MEDS: FIDAXOMICIN 200 MG TAB (DIFICID) PO ×2 (08:47→21:58)
[2017-07-12] MEDS: FUROSEMIDE 40 MG TAB PO (12:45)
[2017-07-12] MEDS: FLUTICASONE PROP 0.05% NASAL SPRAY 16 GM (FLONASE) (21:58)
[2017-07-12] MEDS: TIOTROPIUM INHALER/CAPSULE (SPIRIVA) INH (23:24)
[2017-07-13] MEDS: IPRATROPIUM 0.5MG/ALBUTEROL 2.5MG INH SOL UD 3ML (DUONEB)(J7620) NEB ×3 (08:00→22:57)
[2017-07-13] MEDS: SYMBICORT 80/4.5MCG INHALER 6GM INH ×2 (08:41→19:57)
[2017-07-13] MEDS: FIDAXOMICIN 200 MG TAB (DIFICID) PO ×2 (09:43→20:36)
[2017-07-13] MEDS: FUROSEMIDE 40 MG TAB PO (09:43)
[2017-07-13] MEDS: PANTOPRAZOLE 40MG TAB (PROTONIX) PO (09:43)
[2017-07-13] MEDS: TIOTROPIUM INHALER/CAPSULE (SPIRIVA) INH (19:58)
[2017-07-13] MEDS: FLUTICASONE PROP 0.05% NASAL SPRAY 16 GM (FLONASE) (20:37)
[2017-07-14] MEDS: SYMBICORT 80/4.5MCG INHALER 6GM INH ×2 (07:33→21:00)
[2017-07-14] MEDS: IPRATROPIUM 0.5MG/ALBUTEROL 2.5MG INH SOL UD 3ML (DUONEB)(J7620) NEB ×2 (07:34→16:00)
[2017-07-14] MEDS: FIDAXOMICIN 200 MG TAB (DIFICID) PO ×2 (09:18→20:40)
[2017-07-14] MEDS: FUROSEMIDE 40 MG TAB PO (09:19)
[2017-07-14] MEDS: PANTOPRAZOLE 40MG TAB (PROTONIX) PO (09:19)
[2017-07-14] MEDS: MORPHINE 10MG/0.5ML ORAL CONCENTRATE SOLUTION U/D SL (10:54)
[2017-07-14] MEDS: FLUTICASONE PROP 0.05% NASAL SPRAY 16 GM (FLONASE) (20:40)
[2017-07-14 20:41] LABS: BEDSIDE GLUCOSE 170 MG/DL (83-110)
[2017-07-14] MEDS: TIOTROPIUM INHALER/CAPSULE (SPIRIVA) INH (21:00)
[2017-07-15] MEDS: MORPHINE 10MG/0.5ML ORAL CONCENTRATE SOLUTION U/D SL ×2 (02:59→16:34)
[2017-07-15] MEDS: SYMBICORT 80/4.5MCG INHALER 6GM INH ×2 (07:06→20:30)
[2017-07-15] MEDS: IPRATROPIUM 0.5MG/ALBUTEROL 2.5MG INH SOL UD 3ML (DUONEB)(J7620) NEB ×4 (08:00→22:32)
[2017-07-15] MEDS: PANTOPRAZOLE 40MG TAB (PROTONIX) PO (10:12)
[2017-07-15] MEDS: FUROSEMIDE 40 MG TAB PO (10:12)
[2017-07-15] MEDS: FIDAXOMICIN 200 MG TAB (DIFICID) PO ×2 (10:12→20:00)
[2017-07-15] MEDS: FLUTICASONE PROP 0.05% NASAL SPRAY 16 GM (FLONASE) (20:00)
[2017-07-15] MEDS: TIOTROPIUM INHALER/CAPSULE (SPIRIVA) INH (20:31)
[2017-07-16] MEDS: MORPHINE 10MG/0.5ML ORAL CONCENTRATE SOLUTION U/D SL ×2 (05:06→15:29)
[2017-07-16] MEDS: SYMBICORT 80/4.5MCG INHALER 6GM INH ×2 (07:51→19:49)
[2017-07-16] MEDS: IPRATROPIUM 0.5MG/ALBUTEROL 2.5MG INH SOL UD 3ML (DUONEB)(J7620) NEB ×3 (07:51→23:24)
[2017-07-16] MEDS: PANTOPRAZOLE 40MG TAB (PROTONIX) PO (09:36)
[2017-07-16] MEDS: FUROSEMIDE 40 MG TAB PO (09:36)
[2017-07-16] MEDS: FIDAXOMICIN 200 MG TAB (DIFICID) PO ×2 (09:36→21:44)
[2017-07-16] MEDS: FLUTICASONE PROP 0.05% NASAL SPRAY 16 GM (FLONASE) (21:46)
[2017-07-16] MEDS: TIOTROPIUM INHALER/CAPSULE (SPIRIVA) INH (23:00)
[2017-07-17] MEDS: SYMBICORT 80/4.5MCG INHALER 6GM INH ×2 (07:38→19:37)
[2017-07-17] MEDS: IPRATROPIUM 0.5MG/ALBUTEROL 2.5MG INH SOL UD 3ML (DUONEB)(J7620) NEB ×3 (07:38→23:22)
[2017-07-17] MEDS: PANTOPRAZOLE 40MG TAB (PROTONIX) PO (09:14)
[2017-07-17] MEDS: FIDAXOMICIN 200 MG TAB (DIFICID) PO ×2 (09:14→20:45)
[2017-07-17] MEDS: FUROSEMIDE 40 MG TAB PO (09:14)
[2017-07-17] MEDS: MORPHINE 10MG/0.5ML ORAL CONCENTRATE SOLUTION U/D SL (10:50)
[2017-07-17] MEDS: TIOTROPIUM INHALER/CAPSULE (SPIRIVA) INH (19:37)
[2017-07-17] MEDS: FLUTICASONE PROP 0.05% NASAL SPRAY 16 GM (FLONASE) (20:45)
[2017-07-18] MEDS: SYMBICORT 80/4.5MCG INHALER 6GM INH ×2 (07:32→21:46)
[2017-07-18] MEDS: IPRATROPIUM 0.5MG/ALBUTEROL 2.5MG INH SOL UD 3ML (DUONEB)(J7620) NEB ×2 (07:33→15:15)
[2017-07-18] MEDS: FIDAXOMICIN 200 MG TAB (DIFICID) PO ×2 (09:22→20:23)
[2017-07-18] MEDS: PANTOPRAZOLE 40MG TAB (PROTONIX) PO (09:22)
[2017-07-18] MEDS: FUROSEMIDE 40 MG TAB PO (09:22)
[2017-07-18] MEDS: FLUTICASONE PROP 0.05% NASAL SPRAY 16 GM (FLONASE) (20:23)
[2017-07-18] MEDS: TIOTROPIUM INHALER/CAPSULE (SPIRIVA) INH (21:45)
[2017-07-19] MEDS: IPRATROPIUM 0.5MG/ALBUTEROL 2.5MG INH SOL UD 3ML (DUONEB)(J7620) NEB ×3 (08:00→19:37)
[2017-07-19] MEDS: SYMBICORT 80/4.5MCG INHALER 6GM INH ×2 (08:42→19:37)
[2017-07-19] MEDS: FIDAXOMICIN 200 MG TAB (DIFICID) PO ×2 (09:34→20:28)
[2017-07-19] MEDS: PANTOPRAZOLE 40MG TAB (PROTONIX) PO (09:34)
[2017-07-19] MEDS: FUROSEMIDE 40 MG TAB PO (09:34)
[2017-07-19] MEDS: MORPHINE 10MG/0.5ML ORAL CONCENTRATE SOLUTION U/D SL (18:19)
[2017-07-19] MEDS: TIOTROPIUM INHALER/CAPSULE (SPIRIVA) INH (19:38)
[2017-07-19] MEDS: FLUTICASONE PROP 0.05% NASAL SPRAY 16 GM (FLONASE) (20:29)
[2017-07-20] MEDS: IPRATROPIUM 0.5MG/ALBUTEROL 2.5MG INH SOL UD 3ML (DUONEB)(J7620) NEB ×2 (08:00→15:22)
[2017-07-20] MEDS: SYMBICORT 80/4.5MCG INHALER 6GM INH ×2 (08:01→19:39)
[2017-07-20] MEDS: FIDAXOMICIN 200 MG TAB (DIFICID) PO ×2 (09:46→20:31)
[2017-07-20] MEDS: PANTOPRAZOLE 40MG TAB (PROTONIX) PO (09:46)
[2017-07-20] MEDS: FUROSEMIDE 40 MG TAB PO (09:46)
[2017-07-20] MEDS: TIOTROPIUM INHALER/CAPSULE (SPIRIVA) INH (19:39)
[2017-07-20] MEDS: FLUTICASONE PROP 0.05% NASAL SPRAY 16 GM (FLONASE) (20:31)
[2017-07-21] MEDS: IPRATROPIUM 0.5MG/ALBUTEROL 2.5MG INH SOL UD 3ML (DUONEB)(J7620) NEB ×3 (07:19→16:41)
[2017-07-21] MEDS: SYMBICORT 80/4.5MCG INHALER 6GM INH ×2 (07:37→20:05)
[2017-07-21] MEDS: FUROSEMIDE 40 MG TAB PO (08:37)
[2017-07-21] MEDS: FIDAXOMICIN 200 MG TAB (DIFICID) PO ×2 (08:37→21:09)
[2017-07-21] MEDS: PANTOPRAZOLE 40MG TAB (PROTONIX) PO (08:37)
[2017-07-21] MEDS: TIOTROPIUM INHALER/CAPSULE (SPIRIVA) INH (20:28)
[2017-07-21] MEDS: FLUTICASONE PROP 0.05% NASAL SPRAY 16 GM (FLONASE) (21:09)
[2017-07-21] MEDS: MORPHINE 10MG/0.5ML ORAL CONCENTRATE SOLUTION U/D SL (21:09)
[2017-07-22] MEDS: IPRATROPIUM 0.5MG/ALBUTEROL 2.5MG INH SOL UD 3ML (DUONEB)(J7620) NEB ×3 (07:25→16:00)
[2017-07-22] MEDS: SYMBICORT 80/4.5MCG INHALER 6GM INH ×2 (07:26→21:00)
[2017-07-22] MEDS: FUROSEMIDE 40 MG TAB PO (09:00)
[2017-07-22] MEDS: PANTOPRAZOLE 40MG TAB (PROTONIX) PO (09:02)
[2017-07-22] MEDS: FIDAXOMICIN 200 MG TAB (DIFICID) PO ×2 (09:02→20:20)
[2017-07-22] MEDS: FLUTICASONE PROP 0.05% NASAL SPRAY 16 GM (FLONASE) (20:52)
[2017-07-22] MEDS: TIOTROPIUM INHALER/CAPSULE (SPIRIVA) INH (21:00)
[2017-07-23] MEDS: MORPHINE 10MG/0.5ML ORAL CONCENTRATE SOLUTION U/D SL (02:34)
[2017-07-23] MEDS: SYMBICORT 80/4.5MCG INHALER 6GM INH ×2 (06:51→21:25)
[2017-07-23] MEDS: IPRATROPIUM 0.5MG/ALBUTEROL 2.5MG INH SOL UD 3ML (DUONEB)(J7620) NEB ×3 (06:51→15:20)
[2017-07-23] MEDS: PANTOPRAZOLE 40MG TAB (PROTONIX) PO (08:12)
[2017-07-23] MEDS: FIDAXOMICIN 200 MG TAB (DIFICID) PO ×2 (08:12→21:49)
[2017-07-23] MEDS: TIOTROPIUM INHALER/CAPSULE (SPIRIVA) INH (21:26)
[2017-07-23] MEDS: ACETAMINOPHEN TAB 650MG DOSE (2X325MG) PO (21:49)
[2017-07-23] MEDS: FLUTICASONE PROP 0.05% NASAL SPRAY 16 GM (FLONASE) (21:49)
[2017-07-24] MEDS: IPRATROPIUM 0.5MG/ALBUTEROL 2.5MG INH SOL UD 3ML (DUONEB)(J7620) NEB ×4 (08:00→23:26)
[2017-07-24] MEDS: SYMBICORT 80/4.5MCG INHALER 6GM INH ×2 (08:21→21:17)
[2017-07-24] MEDS: FIDAXOMICIN 200 MG TAB (DIFICID) PO ×2 (09:57→22:21)
[2017-07-24] MEDS: PANTOPRAZOLE 40MG TAB (PROTONIX) PO (09:57)
[2017-07-24] MEDS: TIOTROPIUM INHALER/CAPSULE (SPIRIVA) INH (21:17)
[2017-07-24] MEDS: FLUTICASONE PROP 0.05% NASAL SPRAY 16 GM (FLONASE) (22:21)
[2017-07-24] MEDS: ACETAMINOPHEN TAB 650MG DOSE (2X325MG) PO (22:21)
[2017-07-25] MEDS: IPRATROPIUM 0.5MG/ALBUTEROL 2.5MG INH SOL UD 3ML (DUONEB)(J7620) NEB ×2 (08:00→15:16)
[2017-07-25] MEDS: FIDAXOMICIN 200 MG TAB (DIFICID) PO ×2 (08:40→19:59)
[2017-07-25] MEDS: PANTOPRAZOLE 40MG TAB (PROTONIX) PO (08:40)
[2017-07-25] MEDS: SYMBICORT 80/4.5MCG INHALER 6GM INH ×2 (09:41→19:31)
[2017-07-25] MEDS: TIOTROPIUM INHALER/CAPSULE (SPIRIVA) INH (19:31)
[2017-07-25] MEDS: FLUTICASONE PROP 0.05% NASAL SPRAY 16 GM (FLONASE) (20:00)
[2017-07-26] MEDS: IPRATROPIUM 0.5MG/ALBUTEROL 2.5MG INH SOL UD 3ML (DUONEB)(J7620) NEB ×2 (08:00)
[2017-07-26] MEDS: SYMBICORT 80/4.5MCG INHALER 6GM INH (08:07)
[2017-07-26] MEDS: PANTOPRAZOLE 40MG TAB (PROTONIX) PO (08:26)
[2017-07-26] MEDS: FIDAXOMICIN 200 MG TAB (DIFICID) PO (08:26)
== END 2017-07-26 12:20 | DRG 640 ==
LOC: M ED 16:19 → M ED INP 19:58 → M MSPAV 23:27
DX: E43 Unspecified severe protein-calorie malnutrition (principal); J18.9 Pneumonia, unspecified organism; E87.2 Acidosis; A04.71 Enterocolitis due to Clostridium difficile, recurrent; N17.9 Acute kidney failure, unspecified; I50.32 Chronic diastolic (congestive) heart failure; D62 Acute posthemorrhagic anemia; Z68.1 Body mass index [BMI] 19.9 or less, adult; E87.0 Hyperosmolality and hypernatremia; R53.1 Weakness; I11.0 Hypertensive heart disease with heart failure; E03.9 Hypothyroidism, unspecified; I48.0 Paroxysmal atrial fibrillation; I27.20 Pulmonary hypertension, unspecified; I27.81 Cor pulmonale (chronic); Z51.5 Encounter for palliative care; E78.5 Hyperlipidemia, unspecified; M19.90 Unspecified osteoarthritis, unspecified site; D25.9 Leiomyoma of uterus, unspecified; Z79.82 Long term (current) use of aspirin; Z79.899 Other long term (current) drug therapy; Z88.2 Allergy status to sulfonamides; Z91.038 Other insect allergy status; J44.9 Chronic obstructive pulmonary disease, unspecified; I25.10 Atherosclerotic heart disease of native coronary artery without angina pectoris; M81.0 Age-related osteoporosis without current pathological fracture; Z66 Do not resuscitate; E86.0 Dehydration; Z96.642 Presence of left artificial hip joint